=== PATIENT | male | born 1945 | race Caucasian/White ===

== ENCOUNTER 2016-07-19 14:00 | Emergency (ER) | payer MEDICARE, OTHER ==
--- NOTE | 2016-07-19 14:52 | ERPHSYRPT ---
- History of Present Illness Time Seen by Provider: 07/19/16 14:33 Source: patient, family Exam Limitations: no limitations Patient Subjective Stated Complaint: pt here for abd drain to right walt eof abd for 2 weeks , he thinks it is coming out. it has bandage to site from home health care, he states he also has pain to right side of abd, he was told yesterday he has mrsa to fluid, and started on antibotics Triage Nursing Assessment: pt is alert, resp easy, skin w/d , abd large, with abd drain in place to right side of abd, and has leg bag applied with yellow fluid in bag, cath is sutures intact at site, with some redness and warmth Physician History: This is a 71-year-old white male who initially presented with complaints that he thinks that a drain tube which was placed in his abdomen several days ago was coming out Patient does have a history of the kidney removal apparently had had paracentesis and had an abdominal drain placed. He states that he felt like the drain was coming out. He was started on antibiotics 2 days ago secondary to infected peritoneal fluid. He has not had any fevers no nausea no vomiting he did complain of some mild abdominal tenderness. He has mild erythema surrounding the ostomy where the drain is however the area is not hot to palpation and it appears to be more irritation which appears to be chronic. patient was started on antibiotics because of a positive culture of his peritoneal fluid 2 days ago. As I walked into the room the patient's tells me that she just had gotten off the phone with his doctors surgeons sales secretary who stated that he could be at [facility] in the morning to have his drain to removed. During the course of the interview with the patient and his she did state that he had some pain this afternoon between 120 and 1:30 during which she complained of some pain in the left upper anterior chest described as a muscle soreness he was not short of breath he was had no nausea no vomiting. He states it went away with one nitroglycerin. Patient apparently is on elequis for anticoagulation Past medical history includes right kidney removed secondary to renal cancer on May 09 , Peripheral neuropathy, diabetes, arthritis, hernia, pacemaker, atherosclerotic coronary artery disease, arrhythmia Past surgical history includes right kidney removed, drain placed the patient's right abdomen, cardiac stent, cardiac pacemaker, orthopedic surgery. Timing/Duration: other (feels like drain is coming out for 2 days) Modifying Factors: Improves With: nothing Associated Symptoms: abdominal pain (mild tenderness at abdominal drain site), chest pain, No nausea, No vomiting, No shortness of breath, No heartburn, No diaphoresis, No cough, No chills, No fever, No headaches, No loss of appetite, No malaise, No rash, No syncope, No seizure, No weakness Allergies/Adverse Reactions: rivaroxaban [From Xarelto] Allergy (Severe, Verified 07/19/16 14:19) simvastatin [From Zocor] Allergy (Intermediate, Verified 07/19/16 14:19) penicillin G Allergy (Mild, Verified 07/19/16 14:19) Rash Sulfa (Sulfonamide Antibiotics) [Sulfa(Sulfonamide Antibiotics)] Allergy (Mild, Verified 07/19/16 14:19) Rash Home Medications: Apixaban [Eliquis] 5 mg PO BID 04/23/16 [History] Benazepril HCl [Lotensin] 20 mg PO DAILY 04/23/16 [History] Carvedilol 12.5 mg [Coreg 12.5 mg] 12.5 mg PO DAILY 04/23/16 [History] Glipizide 5 mg [Glucotrol 5 MG] 5 mg PO BID 04/23/16 [History] Insulin Glargine [Lantus Insulin] 0 unit SQ UD 04/23/16 [History] Lorazepam 1 mg [Ativan 1 MG] 1 mg PO UD 04/23/16 [History] Nitroglycerin 0.4 mg Tablet [Nitrostat 0.4 MG Tablet] 0.4 mg SL UD [History] Nitroglycerin [Nitro-Dur] 1 each TD UD 04/23/16 [History] Omeprazole 20 MG [Prilosec 20 mg] 20 mg PO DAILY 04/23/16 [History] Pravastatin Sodium 40 mg PO DAILY 04/23/16 [History] Spironolactone 25 mg [Aldactone 25 MG] 25 mg PO DAILY 04/23/16 [History] Tramadol HCl 50 mg [Ultram 50 mg] 50 mg PO UD 04/23/16 [History] Hx Tetanus, Diphtheria Vaccination/Date Given: No Hx Influenza Vaccination/Date Given: Yes Hx Pneumococcal Vaccination/Date Given: Yes Immunizations Up to Date: Yes - Review of Systems Constitutional: No Fever, No Chills Eyes: No Symptoms Ears, Nose, & Throat: No Symptoms, No Ear Pain, No Ear Discharge, No Hearing Changes, No Tinnitus, No Nose Pain, No Nose Congestion, No Nose Discharge, No Sinus Drainage, No Epistaxis, No Mouth Pain, No Mouth Swelling, No Loose Teeth, No Throat Pain, No Throat Swelling, No Hoarse, No Painful Swallowing, No Snoring , No Stridor Respiratory: No Cough, No Dyspnea Cardiac: Chest Pain (chest pain described as a muscle soreness lasting 2 minutes at 1:20 PM today resolved with nitroglycerin) Abdominal/Gastrointestinal: Other (patient feels like drain tube is coming out x 2 days, mild tenderness at site denies other abdominal pain), No Nausea, No Vomiting, No Diarrhea, No Constipation, No Hematemesis, No Hematochezia, No Melena, No Dysphagia, No Appetite Changes Genitourinary Symptoms: No Dysuria Musculoskeletal: No Back Pain, No Neck Pain Skin: No Rash Neurological: No Dizziness, No Focal Weakness, No Sensory Changes Psychological: No Symptoms Endocrine: No Symptoms All Other Systems: Reviewed and Negative - Past Medical History Pertinent Past Medical History: Yes Neurological History: Peripheral Neuropathy Cardiac History: Arrhythmia, Other Respiratory History: No Pertinent History Endocrine Medical History: Diabetes Type II Musculoskeletal History: Arthritis GI Medical History: Hernia Other Medical History: Pacemaker, 3 stints, kidney ca - Past Surgical History Past Surgical History: Yes Cardiac: Cardiac Stent, Pacemaker Musculoskeletal: Orthopedic Surgery Other Surgical History: right kidney removal - Social History Smoking Status: Never smoker Exposure to second hand smoke: No Drug Use: none Patient Lives Alone: No - Nursing Vital Signs Nursing Vital Signs: Initial Vital Signs Temperature 97.7 F Temperature Source Oral Pulse Rate 60 Respiratory Rate 12 Blood Pressure [] 132/68 Pain Intensity 2 - Physical Exam General Appearance: no apparent distress, alert Eye Exam: PERRL/EOMI, eyes nml inspection Ears, Nose, Throat Exam: normal ENT inspection, TMs normal, pharynx normal, moist mucous membranes Neck Exam: normal inspection, non-tender, supple, full range of motion Respiratory Exam: normal breath sounds, lungs clear, No respiratory distress Cardiovascular Exam: regular rate/rhythm, normal heart sounds, normal peripheral pulses Gastrointestinal/Abdomen Exam: soft, normal bowel sounds, other (abdomen is soft , nontender, there is a drain in the right lower quadrant approximately 1/2 inch of which is visible there is slight erythema of the ostomy site area is not hot), No tenderness Back Exam: normal inspection, normal range of motion, No CVA tenderness, No vertebral tenderness Extremity Exam: normal inspection, normal range of motion, pelvis stable Neurologic Exam: alert, oriented x 3, cooperative, normal mood/affect, nml cerebellar function, nml station & gait, sensation nml, No motor deficits Skin Exam: other (slight erythema of the ostomy site lower quadrant appears to be irrititation, area is not hot) SpO2 Interpretation: normal (98%) SpO2: 98 Oxygen Delivery: Room Air - Course Nursing assessment & vital signs reviewed: Yes EKG Interpreted by Me: RATE (60 bpm), Other (EKG, paced rhythm 60 bpm) - Radiology Exams Chest X-ray Interpretation: Discussed w/ radiologist (chest x-ray: Impression: Nonacute underinflated chest with chronic features) Ordered Tests: Active Orders 24 hr Category Date Time Status Planning Official STAT Care 07/19/16 14:44 Active EKG-ER Only STAT Care 07/19/16 14:44 Active IV Insertion STAT Care 07/19/16 14:44 Active CHEST 1 VIEW (PORTABLE) Stat Exams 07/19/16 14:44 Completed BLOOD CULTURE Stat Lab 07/19/16 15:25 Ordered CBC W DIFF Stat Lab 07/19/16 15:10 Completed CMP Stat Lab 07/19/16 15:10 Completed D-DIMER QUANTITATION Stat Lab 07/19/16 15:10 Completed PROTIME WITH INR Stat Lab 07/19/16 15:10 Completed PTT Stat Lab 07/19/16 15:10 Completed TROPONIN Q3H Lab 07/19/16 14:45 Completed TROPONIN Q3H Lab 07/19/16 17:20 Completed TROPONIN Q3H Lab 07/19/16 20:45 Ordered TROPONIN Q3H Lab 07/19/16 23:45 Ordered TROPONIN Q3H Lab 07/20/16 02:45 Ordered Lab/Rad Data: Laboratory Result Diagrams 07/19/16 15:10 03/02/17 15:10 Laboratory Results 07/19/16 07/19/16 07/19/16 Range/Units 17:20 15:10 15:10 WBC (4.0-10.5) K/mm3 RBC (4.1-5.6) M/mm3 Hgb (12.5-18.0) gm/dl Hct (42-50) % MCV (78-100) fl MCH (26-32) pg MCHC (32-36) g/dl RDW (11.5-14.0) % Plt Count (150-450) K/mm3 MPV (6-9.5) fl Gran % (36.0-66.0) % Lymphocytes % (24.0-44.0) % Monocytes % (0.0-12.0) % Eosinophils % (0.00-5.0) % Basophils % (0.0-0.4) % Basophils # (0-0.4) INR 1.39 (0.8-3.0) PTT 32.3 (24.1-36.1) SECONDS D-Dimer 4.294 H* (0.00-0.49) mg/L Potassium 5.1 (3.5-5.1) mEq/L Chloride 100 (98-107) mEq/L BUN 15 (9-20) mg/dL Creatinine 1.88 H (0.55-1.30) mg/dl Estimated GFR 38 ML/MIN Glucose 157 H (70-110) MG/DL Calcium 8.3 L (8.5-10.1) mg/dL Total Bilirubin 0.3 (0.2-1.0) mg/dL AST 14 L (15-37) U/L ALT 11 L (12-78) U/L Alkaline Phosphatase 127 H (46-116) U/L Troponin I 0.025 (0.000-0.056) ng/ml Serum Total Protein 5.9 L (6.4-8.2) gm/dL Albumin 2.3 L (3.4-5.0) g/dL 07/19/16 07/19/16 Range/Units 15:10 14:45 WBC 5.7 (4.0-10.5) K/mm3 RBC 3.79 L (4.1-5.6) M/mm3 Hgb 9.6 L (12.5-18.0) gm/dl Hct 31.1 L (42-50) % MCV 82.1 (78-100) fl MCH 25.3 L (26-32) pg MCHC 30.9 L (32-36) g/dl RDW 14.3 H (11.5-14.0) % Plt Count 215 (150-450) K/mm3 MPV 10.6 H (6-9.5) fl Gran % 58.7 (36.0-66.0) % Lymphocytes % 22.8 L (24.0-44.0) % Monocytes % 13.1 H (0.0-12.0) % Eosinophils % 4.9 (0.00-5.0) % Basophils % 0.5 (0.0-0.4) % Basophils # 0.03 (0-0.4) INR (0.8-3.0) PTT (24.1-36.1) SECONDS D-Dimer (0.00-0.49) mg/L Potassium (3.5-5.1) mEq/L Chloride (98-107) mEq/L BUN (9-20) mg/dL Creatinine (0.55-1.30) mg/dl Estimated GFR ML/MIN Glucose (70-110) MG/DL Calcium (8.5-10.1) mg/dL Total Bilirubin (0.2-1.0) mg/dL AST (15-37) U/L ALT (12-78) U/L Alkaline Phosphatase (46-116) U/L Troponin I 0.020 (0.000-0.056) ng/ml Serum Total Protein (6.4-8.2) gm/dL Albumin (3.4-5.0) g/dL - Progress Progress: improved Progress Note: 07/19/16 14:57 This is a 71-year-old white male who had a right nephrectomy in May 09, 2016 secondary to renal cancer. He had subsequent abdominal paracentesis and drain placement his states the drain was placed 2 days ago patient states he feels like the drain is coming out and came in concerning this. He has not been vomiting he he really does not appear to have abdominal tenderness there is no tenderness with palpation of his abdomen he does have slight irritation in the right lower quadrant where the ostomy site is. Patient's states the patient was started on antibiotics secondary to a positive culture of the patient's abdominal drainage 2 days ago. He has no fevers no vomiting. When I entered the room the had just gotten off of the phone with the patient's surgeons sales secretary and she told me that there was arrangements made for the patient to have the drain pulled tomorrow at outpatient surgery at . Unfortunately, the patient apparently had pain this afternoon at 1:00 lasting 2 minutes in his left upper chest described as a muscle soreness it resolved after taking nitroglycerin. Patient is on Eloquis. Patient states she does not have any pain now, he has no nausea no vomiting no diaphoresis he is not short of breath. Will go ahead and obtain routine labs for chest pain workup including EKG chest x-ray CBC CMP troponin. Will add blood cultures in view of the patient's history. . 07/19/16 17:12 Patient is in no acute distress at this time no further chest pain patient's troponin within normal limits Patient's d-dimer is elevated at 4.294 Patient's chest x-ray nonacute underinflated chest with chronic features. Patient is on eloquis. I have discussed the case with Dr. Ramana Wilkins.he feels that the patient can be released and to continue his eloquis. Will repeat troponin on this patient if within normal limits Will plan to discharge and have him follow-up with [facility] interventional radiology department tomorrow morning. 07/19/16 18:10 Patient's repeat troponin is within normal limits. Will discharge - Departure Time of Disposition: 18:11 Departure Disposition: Home Clinical Impression: problems with abdominal drain Chest pain Qualifiers: Chest pain type: unspecified Qualified Code(s): R07.9 - Chest pain, unspecified Condition: Fair Critical Care Time: No Additional Instructions: Return home. Continue current medications and treatment. Follow-up with [facility] interventional radiology tomorrow morning as arranged. Return for acute distress or for severe symptoms. Follow-up with your family doctor.
--- NOTE | 2016-07-19 15:07 | XRAY ---
Indication: Chest pain. Comparison: March 20, 2016. Portable chest again demonstrates mediastinal/hilar calcified nodes and left-sided single lead pacemaker. No focal infiltrate, consolidation, or large effusion. Heart is not enlarged for AP portable technique. Bony thorax intact again with osteopenia, degenerative changes, and previous right shoulder surgery. Impression: Nonacute underinflated chest with chronic features.
[2016-07-19 15:32] LABS: BASOPHIL % 0.5 % (0.0-0.4); Eosinophil % 4.9 % (0.00-5.0); Granulocytes % 58.7 % (36.0-66.0); Lymphocytes % 22.8 % (24.0-44.0); Mean Cell Volume 82.1 fl (78-100); Mean Corpuscular Hemoglobin 25.3 pg (26-32); Mean Platelet Volume 10.6 fl (6-9.5); Monocytes % 13.1 % (0.0-12.0); Platelet Count 215 K/mm3 (150-450); Red Blood Count 3.79 M/mm3 (4.1-5.6); Red Cell Distribution Width 14.3 % (11.5-14.0); White Blood Count 5.7 K/mm3 (4.0-10.5)
[2016-07-19 15:50] LABS: INR 1.39 (0.8-3.0); PROTIME 15.4 SECONDS (8.83-12.87)
[2016-07-19 15:52] LABS: PTT 32.3 SECONDS (24.1-36.1)
[2016-07-19 16:36] LABS: ALBUMIN 2.3 g/dL (3.4-5.0); ALKALINE PHOSPHATASE 127 U/L (46-116); BILIRUBIN,TOTAL 0.3 mg/dL (0.2-1.0); BLOOD UREA NITROGEN 15 mg/dL (9-20); Glucose 157 MG/DL (70-110); SGOT/AST 14 U/L (15-37); Total Protein 5.9 gm/dL (6.4-8.2)
[2016-07-19 16:48] LABS: SGPT/ALT 11 U/L (12-78)
[2016-07-19 17:29] LABS: CHLORIDE 100 mEq/L (98-107); Potassium 5.1 mEq/L (3.5-5.1)
[2016-07-19 18:17] VITALS: BP 139/69; PULSE 60; O2SAT 100
[2016-07-19 19:54] LABS: SODIUM 136 mEq/L (136-145)
== END 2016-07-19 18:16 | disposition home or self-care (01) ==
LOC: ED 14:00
DX: R07.89 Other chest pain (principal); Z43.1 Encounter for attention to gastrostomy; Z79.84 Long term (current) use of oral hypoglycemic drugs; Z79.4 Long term (current) use of insulin; Z79.899 Other long term (current) drug therapy; Z79.01 Long term (current) use of anticoagulants; E11.9 Type 2 diabetes mellitus without complications; Z95.0 Presence of cardiac pacemaker; Z98.61 Coronary angioplasty status
CPT/HCPCS: 36000; 36415; 71010; 80053; 84484; 85025; 85379; 85610; 85730; 87040; 93005; 93041; 99284

== ENCOUNTER 2016-10-07 19:31 | Emergency (ER) | payer MEDICARE, OTHER ==
[2016-10-07 19:39] VITALS: PULSE 60
--- NOTE | 2016-10-07 19:56 | ERPHSYRPT ---
- History of Present Illness Time Seen by Provider: 10/07/16 19:52 Source: patient Exam Limitations: no limitations Patient Subjective Stated Complaint: pt states he has been sick for 2 days. states he has been coughing up clear phlegm and has had a fever. Triage Nursing Assessment: pt awake and alert, asnwers qeustions approp. skin pink, hot, and dry. pt ambulatory with steady gait noted. respirations nonlabored with insp oand exp wheezing on rt and exp wheeze in lt base. Physician History: 71-year-old white male with history of removal of the right kidney, kidney cancer previous the abdominal drain which has been subsequently removed, atherosclerotic coronary artery disease, cardiac stents, cardiac pacemaker, peripheral neuropathy, diabetes, arthritis, arrhythmia Patient arrives with a fever since yesterday cough nonproductive no vomiting no diarrhea. Patient apparently had had a CT of his abdomen on 3 days ago apparently is having fluid drained from his abdomen 3 days ago which he states was clear Past medical history includes peripheral neuropathy, diabetes, arthritis, hernia , cardiac pacemaker, atherosclerotic coronary artery disease, arrhythmia, kidney cancer Past surgical history includes right kidney removed, drain right side of abdomen , cardiac catheter, cardiac stent, cardiac pacemaker, atherosclerotic coronary artery disease Timing/Duration: yesterday Severity: moderate Modifying Factors: Improves With: nothing Associated Symptoms: cough, fever, No nausea, No vomiting, No abdominal pain, No shortness of breath, No heartburn, No diaphoresis, No chest pain, No headaches, No loss of appetite, No malaise, No rash, No syncope, No seizure, No weakness Allergies/Adverse Reactions: rivaroxaban [From Xarelto] Allergy (Severe, Verified 10/07/16 19:49) simvastatin [From Zocor] Allergy (Intermediate, Verified 10/07/16 19:49) penicillin G Allergy (Mild, Verified 10/07/16 19:49) Rash Sulfa (Sulfonamide Antibiotics) [Sulfa(Sulfonamide Antibiotics)] Allergy (Mild, Verified 10/07/16 19:49) Rash Home Medications: Apixaban [Eliquis] 5 mg PO BID 04/23/16 [History] Benazepril HCl [Lotensin] 20 mg PO DAILY 04/23/16 [History] Carvedilol 12.5 mg [Coreg 12.5 mg] 12.5 mg PO DAILY 04/23/16 [History] Glipizide 5 mg [Glucotrol 5 MG] 5 mg PO BID 04/23/16 [History] Insulin Glargine [Lantus Insulin] 0 unit SQ UD 04/23/16 [History] Lorazepam 1 mg [Ativan 1 MG] 1 mg PO UD 04/23/16 [History] Nitroglycerin 0.4 mg Tablet [Nitrostat 0.4 MG Tablet] 0.4 mg SL UD [History] Nitroglycerin [Nitro-Dur] 1 each TD UD 04/23/16 [History] Omeprazole 20 MG [Prilosec 20 mg] 20 mg PO DAILY 04/23/16 [History] Pravastatin Sodium 40 mg PO DAILY 04/23/16 [History] Spironolactone 25 mg [Aldactone 25 MG] 25 mg PO DAILY 04/23/16 [History] Tramadol HCl 50 mg [Ultram 50 mg] 50 mg PO UD 04/23/16 [History] Hx Tetanus, Diphtheria Vaccination/Date Given: No Hx Influenza Vaccination/Date Given: Yes Hx Pneumococcal Vaccination/Date Given: Yes Immunizations Up to Date: Yes - Review of Systems Constitutional: Fever, No Chills Eyes: No Symptoms Ears, Nose, & Throat: No Symptoms Respiratory: Cough, No Dyspnea Cardiac: No Chest Pain, No Edema, No Syncope Abdominal/Gastrointestinal: No Abdominal Pain, No Nausea, No Vomiting, No Diarrhea Genitourinary Symptoms: No Dysuria Musculoskeletal: No Back Pain, No Neck Pain Skin: No Rash Neurological: No Dizziness, No Focal Weakness, No Sensory Changes Psychological: No Symptoms Endocrine: No Symptoms All Other Systems: Reviewed and Negative - Past Medical History Pertinent Past Medical History: Yes Neurological History: Peripheral Neuropathy Cardiac History: Arrhythmia, Deep Vein Thrombosis, Other Respiratory History: No Pertinent History, Sleep Apnea Endocrine Medical History: Diabetes Type II Musculoskeletal History: Arthritis GI Medical History: Hernia Other Medical History: Pacemaker, 3 stents, kidney ca - Past Surgical History Past Surgical History: Yes Cardiac: Cardiac Stent, Pacemaker Musculoskeletal: Orthopedic Surgery Other Surgical History: right kidney removal, mult paracentisis- last on october 04 - took 3l of clear fluid- results not back - Social History Smoking Status: Never smoker Exposure to second hand smoke: No Drug Use: none Patient Lives Alone: No - Nursing Vital Signs Nursing Vital Signs: Initial Vital Signs Temperature 99.2 F Temperature Source Oral Pulse Rate 60 Respiratory Rate 20 Blood Pressure [] 118/47 Pain Intensity 5 - Physical Exam General Appearance: no apparent distress, alert Eye Exam: PERRL/EOMI, eyes nml inspection Ears, Nose, Throat Exam: normal ENT inspection, TMs normal, pharynx normal, moist mucous membranes Neck Exam: normal inspection, non-tender, supple, full range of motion Respiratory Exam: normal breath sounds, lungs clear, No respiratory distress Cardiovascular Exam: regular rate/rhythm, normal heart sounds, normal peripheral pulses Gastrointestinal/Abdomen Exam: soft, normal bowel sounds, No tenderness, No mass Back Exam: normal inspection, normal range of motion, No CVA tenderness, No vertebral tenderness Extremity Exam: normal inspection, normal range of motion, pelvis stable Neurologic Exam: alert, oriented x 3, cooperative, normal mood/affect, nml cerebellar function, nml station & gait, sensation nml, No motor deficits Skin Exam: normal color, warm, dry, No rash Lymphatic Exam: No adenopathy SpO2 Interpretation: normal (97%) SpO2: 97 Oxygen Delivery: Room Air - Course Nursing assessment & vital signs reviewed: Yes - Radiology Exams Chest X-ray Interpretation: Interpreted by me, Negative, No Pneumonia, No Pneumothorax Ordered Tests: Active Orders 24 hr Category Date Time Status IV Insertion STAT Care 10/07/16 19:50 Active CHEST 1 VIEW (PORTABLE) Stat Exams 10/07/16 19:51 Taken BLOOD CULTURE Stat Lab 10/07/16 20:41 Received CBC W DIFF Stat Lab 10/07/16 20:11 Completed CMP Stat Lab 10/07/16 20:11 Completed CULTURE, THROAT Stat Lab 10/07/16 20:11 Received CULTURE,URINE Stat Lab 10/07/16 20:41 Received STREP SCREEN-BETA A Stat Lab 10/07/16 20:11 Completed UA W/ MICROSCOPIC Stat Lab 10/07/16 20:41 Completed Medication Summary Discontinued Medications Generic Name Dose Route Start Last Admin Trade Name Freq PRN Reason Stop Dose Admin Acetaminophen 975 mg 10/07/16 20:51 10/07/16 20:53 Tylenol 325 Mg PO 10/07/16 20:52 975 mg STAT ONE Administration Acetaminophen Confirm 10/07/16 20:52 Tylenol 325 Mg Administered 10/07/16 20:53 Dose 975 mg .ROUTE .STK-MED ONE Sodium Chloride 1,000 mls @ 100 mls/hr 10/07/16 20:00 10/07/16 20:15 Sodium Chloride 0.9% 1000 Ml IV 11/06/16 19:59 100 mls/hr .Q10H CHRIST Administration Levofloxacin/Dextrose 500 mg in 100 mls @ 100 mls/hr 10/07/16 22:13 10/07/16 22:19 Levofloxacin 500mg/100ml D5w IV 10/07/16 23:12 100 mls/hr STAT STA Administration Levofloxacin/Dextrose Confirm 10/07/16 22:17 Levofloxacin 500mg/100ml D5w Administered 10/07/16 22:18 Dose 500 mg in 100 mls @ ud IV .STK-MED ONE Sodium Chloride Confirm 10/07/16 20:14 Sodium Chloride 0.9% 1000 Ml Administered 10/07/16 20:15 Dose 1,000 mls @ ud .ROUTE .STK-MED ONE Lab/Rad Data: Laboratory Result Diagrams 10/07/16 20:11 10/07/16 20:11 Laboratory Results 10/07/16 10/07/16 10/07/16 Range/Units 20:41 20:11 20:11 WBC (4.0-10.5) K/mm3 RBC (4.1-5.6) M/mm3 Hgb (12.5-18.0) gm/dl Hct (42-50) % MCV (78-100) fl MCH (26-32) pg MCHC (32-36) g/dl RDW (11.5-14.0) % Plt Count (150-450) K/mm3 MPV (6-9.5) fl Gran % (36.0-66.0) % Lymphocytes % (24.0-44.0) % Monocytes % (0.0-12.0) % Eosinophils % (0.00-5.0) % Basophils % (0.0-0.4) % Basophils # (0-0.4) Sodium (136-145) mEq/L Potassium (3.5-5.1) mEq/L Chloride (98-107) mEq/L Carbon Dioxide (21-32) mEq/L Anion Gap (5-15) MEQ/L BUN (9-20) mg/dL Creatinine (0.55-1.30) mg/dl Estimated GFR ML/MIN Glucose (70-110) MG/DL Calcium (8.5-10.1) mg/dL Total Bilirubin (0.2-1.0) mg/dL AST (15-37) U/L ALT (12-78) U/L Alkaline Phosphatase (46-116) U/L Serum Total Protein (6.4-8.2) gm/dL Albumin (3.4-5.0) g/dL Ur Collection Type VOID Urine Color YELLOW (YELLOW) Urine Appearance CLEAR (CLEAR) Urine pH 5.5 (5-6) Ur Specific [place] 1.020 (1.005-1.025) Urine Protein 30 (Negative) Urine Glucose (UA) NEGATIVE (NEGATIVE) mg/dL Urine Ketones NEGATIVE (NEGATIVE) Urine Nitrite NEGATIVE (NEGATIVE) Urine Bilirubin NEGATIVE (NEGATIVE) Urine Urobilinogen 1 (0-1) mg/dL Urine WBC (Auto) NEGATIVE (NEGATIVE) Urine RBC (Auto) NEGATIVE (0-5) Antonio/ul Urine Microscopic RBC 2-5 (0-2) /HPF Urine Microscopic WBC 0-2 (0-5) /HPF Ur Epithelial Cells FEW (FEW) /HPF Urine Bacteria RARE (NEGATIVE) /HPF Influenza Type A Ag NEGATIVE (NEGATIVE) Influenza Type B Ag NEGATIVE (NEGATIVE) RSV (PCR) POSITIVE (Negative) Streptococcus Screen NEGATIVE (Negative) Specimen Received 10/07/16204410/07/16 10/07/16 Range/Units 20:11 20:11 WBC 6.7 (4.0-10.5) K/mm3 RBC 4.03 L (4.1-5.6) M/mm3 Hgb 10.4 L (12.5-18.0) gm/dl Hct 33.7 L (42-50) % MCV 83.6 (78-100) fl MCH 25.8 L (26-32) pg MCHC 30.9 L (32-36) g/dl RDW 21.3 H (11.5-14.0) % Plt Count 165 (150-450) K/mm3 MPV 10.3 H (6-9.5) fl Gran % 77.2 H (36.0-66.0) % Lymphocytes % 9.5 L (24.0-44.0) % Monocytes % 10.9 (0.0-12.0) % Eosinophils % 2.1 (0.00-5.0) % Basophils % 0.3 (0.0-0.4) % Basophils # 0.02 (0-0.4) Sodium 133 L (136-145) mEq/L Potassium 4.4 (3.5-5.1) mEq/L Chloride 104 (98-107) mEq/L Carbon Dioxide 23.2 (21-32) mEq/L Anion Gap 9.9 (5-15) MEQ/L BUN 20 (9-20) mg/dL Creatinine 1.84 H (0.55-1.30) mg/dl Estimated GFR 39 ML/MIN Glucose 144 H (70-110) MG/DL Calcium 8.8 (8.5-10.1) mg/dL Total Bilirubin 0.8 (0.2-1.0) mg/dL AST 13 L (15-37) U/L ALT 13 (12-78) U/L Alkaline Phosphatase 157 H (46-116) U/L Serum Total Protein 6.6 (6.4-8.2) gm/dL Albumin 3.1 L (3.4-5.0) g/dL Ur Collection Type Urine Color (YELLOW) Urine Appearance (CLEAR) Urine pH (5-6) Ur Specific [place] (1.005-1.025) Urine Protein (Negative) Urine Glucose (UA) (NEGATIVE) mg/dL Urine Ketones (NEGATIVE) Urine Nitrite (NEGATIVE) Urine Bilirubin (NEGATIVE) Urine Urobilinogen (0-1) mg/dL Urine WBC (Auto) (NEGATIVE) Urine RBC (Auto) (0-5) Antonio/ul Urine Microscopic RBC (0-2) /HPF Urine Microscopic WBC (0-5) /HPF Ur Epithelial Cells (FEW) /HPF Urine Bacteria (NEGATIVE) /HPF Influenza Type A Ag (NEGATIVE) Influenza Type B Ag (NEGATIVE) RSV (PCR) (Negative) Streptococcus Screen (Negative) Specimen Received - Progress Progress: improved Progress Note: 10/07/16 22:10 Patient's labs are essentially normal. Chest x-ray no acute disease processes noted. Patient temperature now 101.5 after Tylenol. I have discussed the case with Dr. Ramana Wilkins the patient's family physician. Will go ahead and give patient Levaquin 500 mg IV send him home with oral Levaquin 500 mg daily. Patient to follow-up with Dr. Wilkins tomorrow. I have discussed this with patient and his he is agreeable to this - Departure Time of Disposition: 22:11 Departure Disposition: Home Clinical Impression: Bronchitis Fever Qualifiers: Fever type: unspecified Qualified Code(s): R50.9 - Fever, unspecified Condition: Fair Critical Care Time: No Referrals: ROLANDO PLASCENCIA [Primary Care Provider] - Instructions: Bronchitis Additional Instructions: Return home. Levaquin 500 mg orally daily #10. Tylenol every 4 hours as needed for temperature greater than 100.5. Plenty of fluids. Follow-up with Dr. Wilkins tomorrow (call office in the morning) Return for acute distress or for severe symptoms Prescriptions: Levofloxacin [Levaquin] 500 mg PO DAILY #10 tablet
[2016-10-07] MEDS ORDERED: Sodium Chloride 0.9% 1000 ML 1,000 ML IV SCH (20:00)
[2016-10-07] MEDS ORDERED: Sodium Chloride 0.9% 1000 ML 1,000 ML ONE (20:14)
[2016-10-07 20:18] LABS: BASOPHIL % 0.3 % (0.0-0.4); Eosinophil % 2.1 % (0.00-5.0); Granulocytes % 77.2 % (36.0-66.0); Lymphocytes % 9.5 % (24.0-44.0); Mean Cell Volume 83.6 fl (78-100); Mean Corpuscular Hemoglobin 25.8 pg (26-32); Mean Platelet Volume 10.3 fl (6-9.5); Monocytes % 10.9 % (0.0-12.0); Platelet Count 165 K/mm3 (150-450); Red Blood Count 4.03 M/mm3 (4.1-5.6); Red Cell Distribution Width 21.3 % (11.5-14.0); White Blood Count 6.7 K/mm3 (4.0-10.5)
[2016-10-07 20:40] LABS: ALBUMIN 3.1 g/dL (3.4-5.0); ANION GAP 9.9 MEQ/L (5-15); BILIRUBIN,TOTAL 0.8 mg/dL (0.2-1.0); Carbon Dioxide 23.2 mEq/L (21-32); Potassium 4.4 mEq/L (3.5-5.1); Total Protein 6.6 gm/dL (6.4-8.2)
[2016-10-07] MEDS ORDERED: TYLENOL 325 MG PO ONE (20:51)
[2016-10-07] MEDS ORDERED: TYLENOL 325 MG ONE (20:52)
[2016-10-07 21:09] LABS: Bacteria RARE /HPF (NEGATIVE); COMPLETE URINE MICROSCOPIC? YES; Collection Type VOID; Epithelial Cells FEW /HPF (FEW); Ph 5.5 (5-6); WBC 0-2 /HPF (0-5)
[2016-10-07] MEDS ORDERED: Levofloxacin 500MG/100ML D5W 500 MG/100 ML BAG IV STA (22:13)
[2016-10-07] MEDS ORDERED: Levofloxacin 500MG/100ML D5W 500 MG/100 ML BAG IV ONE (22:17)
[2016-10-07 23:34] VITALS: BP 118/47; O2SAT 97
--- NOTE | 2016-10-08 08:39 | XRAY ---
Indication: Fever and cough. Comparison: July 19, 2016. Portable chest demonstrates minimal bibasilar atelectasis/scarring. No focal infiltrate, consolidation, or large effusion. The heart is borderline enlarged again demonstrating left-sided single lead pacemaker. Stable hilar calcified nodes. Impression: Borderline cardiomegaly. Negative for acute pneumonic process or CHF.
== END 2016-10-07 23:35 | disposition home or self-care (01) ==
LOC: ED 19:31
DX: R50.9 Fever, unspecified (principal); J40 Bronchitis, not specified as acute or chronic
CPT/HCPCS: 36000; 36415; 71010; 80053; 81000; 85025; 87040; 87070; 87077; 87086; 87186; 87430; 87631; 96360; 96361; 96365; 99284; J1956; A9270-GY

== ENCOUNTER 2017-06-16 21:55 | Inpatient (IN) | payer MEDICARE, OTHER ==
[2017-06-16 22:38] LABS: Hematocrit 44.1 % (42-50); Hemoglobin 14.1 gm/dl (12.5-18.0); Mean Cell Volume 88.2 fl (78-100); Mean Corpuscular Hemoglobin 28.2 pg (26-32); Mean Platelet Volume 11.6 fl (6-9.5); Platelet Count 136 K/mm3 (150-450); Red Cell Distribution Width 14.5 % (11.5-14.0)
--- NOTE | 2017-06-16 22:42 | ERPHSYRPT ---
- History of Present Illness Time Seen by Provider: 06/16/17 22:30 Source: patient Exam Limitations: no limitations Patient Subjective Stated Complaint: Fever and cough Triage Nursing Assessment: Pt presents to the ED with complaints of cough and fever x2 days, worsening today. Pt states there is nothing that makes symptoms better or worse. Pt denies other complaints. Pt is A&O x4, no distress noted. Physician History: 71 y/o male comes to the ER with complaints of fever and cough for the past 2 days. Pt had a fever of 102 and took tylenol prior to coming to the ER. Pt feels weak, has diffuse muscle aches and runny nose. Pt denies any sick contacts , sore throat, shortness of breath or dizziness. Pt does admit to having substernal chest pain that started this evening, describing the pain as sharp, intermittent, 3/10 and pt has not taken any pain meds. Timing/Duration: yesterday Cough Quality/Degree: mild Possible Cause: no prior episodes Modifying Factors: Improves With: nothing Associated Symptoms: fever, chills, cough, muscle aches, nasal drainage International travel in last 2 weeks: No Allergies/Adverse Reactions: rivaroxaban [From Xarelto] Allergy (Severe, Verified 10/07/16 19:49) simvastatin [From Zocor] Allergy (Intermediate, Verified 10/07/16 19:49) penicillin G Allergy (Mild, Verified 10/07/16 19:49) Rash Sulfa (Sulfonamide Antibiotics) [Sulfa(Sulfonamide Antibiotics)] Allergy (Mild, Verified 10/07/16 19:49) Rash Home Medications: Apixaban [Eliquis] 5 mg PO BID 04/23/16 [History] Benazepril HCl [Lotensin] 20 mg PO DAILY 04/23/16 [History] Carvedilol 12.5 mg [Coreg 12.5 mg] 12.5 mg PO DAILY 04/23/16 [History] Glipizide 5 mg [Glucotrol 5 MG] 5 mg PO BID 04/23/16 [History] Insulin Glargine [Lantus Insulin] 0 unit SQ UD 04/23/16 [History] Lorazepam 1 mg [Ativan 1 MG] 1 mg PO UD 04/23/16 [History] Nitroglycerin 0.4 mg Tablet [Nitrostat 0.4 MG Tablet] 0.4 mg SL UD [History] Nitroglycerin [Nitro-Dur] 1 each TD UD 04/23/16 [History] Omeprazole 20 MG [Prilosec 20 mg] 20 mg PO DAILY 04/23/16 [History] Pravastatin Sodium 40 mg PO DAILY 04/23/16 [History] Spironolactone 25 mg [Aldactone 25 MG] 25 mg PO DAILY 04/23/16 [History] Tramadol HCl 50 mg [Ultram 50 mg] 50 mg PO UD 04/23/16 [History] Hx Tetanus, Diphtheria Vaccination/Date Given: Yes Hx Influenza Vaccination/Date Given: Yes Hx Pneumococcal Vaccination/Date Given: Yes Immunizations Up to Date: Yes - Review of Systems Constitutional: Fever, Chills, Weakness Eyes: No Symptoms Ears, Nose, & Throat: No Symptoms, Nose Discharge Respiratory: No Cough, No Dyspnea Cardiac: No Chest Pain, No Edema, No Syncope Abdominal/Gastrointestinal: No Abdominal Pain, No Nausea, No Vomiting, No Diarrhea Genitourinary Symptoms: No Dysuria Musculoskeletal: Myalgias, No Back Pain, No Neck Pain Skin: No Rash Neurological: No Dizziness, No Focal Weakness, No Sensory Changes Psychological: No Symptoms Endocrine: No Symptoms All Other Systems: Reviewed and Negative - Past Medical History Pertinent Past Medical History: Yes Neurological History: Peripheral Neuropathy Cardiac History: Arrhythmia, Deep Vein Thrombosis, Other Respiratory History: No Pertinent History, Sleep Apnea Endocrine Medical History: Diabetes Type II Musculoskeletal History: Arthritis GI Medical History: Hernia Other Medical History: Pacemaker, 3 stents, kidney ca - Past Surgical History Past Surgical History: Yes Cardiac: Cardiac Stent, Pacemaker Musculoskeletal: Orthopedic Surgery Other Surgical History: right kidney removal, mult paracentisis- last on october 04 - took 3l of clear fluid- results not back - Social History Smoking Status: Never smoker Exposure to second hand smoke: No Drug Use: none Patient Lives Alone: No - Nursing Vital Signs Nursing Vital Signs: Initial Vital Signs Temperature 99.9 F 06/16/17 22:07 Blood Pressure 140/68 06/16/17 22:07 Pain Scale Pain Intensity 0 - Physical Exam General Appearance: no apparent distress, alert, No mild distress Eye Exam: PERRL/EOMI, eyes nml inspection Ears, Nose, Throat Exam: normal ENT inspection, TMs normal, pharynx normal, moist mucous membranes, pharyngeal erythema Neck Exam: normal inspection, non-tender, supple, full range of motion Respiratory Exam: normal breath sounds, lungs clear, No chest tenderness, No respiratory distress Cardiovascular Exam: regular rate/rhythm, normal heart sounds, normal peripheral pulses Gastrointestinal/Abdomen Exam: soft, normal bowel sounds, No tenderness Back Exam: normal inspection, No CVA tenderness, No vertebral tenderness Extremity Exam: normal inspection, normal range of motion Neurologic Exam: alert, oriented x 3, cooperative, normal mood/affect, sensation nml, No motor deficits Skin Exam: normal color, warm, dry, No rash Lymphatic Exam: No adenopathy - Course Nursing assessment & vital signs reviewed: Yes EKG Interpreted by Me: Other (paced at a HR of 60 bpm) Ordered Tests: Active Orders 24 hr Category Date Time Status EKG-ER Only STAT Care 06/16/17 22:24 Active IV Insertion STAT Care 06/16/17 22:19 Active CHEST 2 VIEWS (PA AND LAT) Stat Exams 06/16/17 23:04 Taken BLOOD CULTURE Stat Lab 06/16/17 22:40 Received BNP [NT PRO BNP] Stat Lab 06/17/17 01:04 Ordered CBC W DIFF Stat Lab 06/16/17 22:33 Completed CMP Stat Lab 06/16/17 22:33 Completed CULTURE,URINE Stat Lab 06/16/17 22:40 Received Lactic Acid Stat Lab 06/16/17 22:41 Completed Manual Differential NC Stat Lab 06/16/17 22:33 Completed TROPONIN Q3H Lab 06/16/17 22:53 Completed UA W/ MICROSCOPIC Stat Lab 06/16/17 22:40 Completed Respiratory Nebulizer STAT RT 06/17/17 01:03 Active Medication Summary Discontinued Medications Generic Name Dose Route Start Last Admin Trade Name Freq PRN Reason Stop Dose Admin Acetaminophen 1,000 mg 06/16/17 23:40 06/16/17 23:41 Tylenol Extra Strength 500 Mg PO 06/16/17 23:41 1,000 mg STAT STA Administration Acetaminophen Confirm 06/16/17 23:39 Tylenol Extra Strength 500 Mg Administered 06/16/17 23:40 Dose 500 mg .ROUTE .STK-MED ONE Acetaminophen/Codeine Phosphate 5 ml 06/16/17 23:48 06/17/17 00:11 Tylenol W/ Codeine 5 Ml Ud Cup PO 06/16/17 23:49 5 ml STAT ONE Administration Acetaminophen/Codeine Phosphate Confirm 06/17/17 00:03 Tylenol W/ Codeine 5 Ml Ud Cup Administered 06/17/17 00:04 Dose 5 ml .ROUTE .STK-MED ONE Albuterol/Ipratropium 3 ml 06/17/17 01:03 Duoneb 0.5-3 Mg/3 Ml Neb IH 06/17/17 01:04 STAT ONE Sodium Chloride 1,000 mls @ 999 mls/hr 06/16/17 22:56 06/16/17 23:00 Sodium Chloride 0.9% 1000 Ml IV 06/16/17 23:56 999 mls/hr .Q1H1M STA Administration Sodium Chloride Confirm 06/16/17 22:59 Sodium Chloride 0.9% 1000 Ml Administered 06/16/17 23:00 Dose 1,000 mls @ ud .ROUTE .STK-MED ONE Sodium Chloride 500 mls @ 500 mls/hr 06/17/17 00:00 06/17/17 00:11 Sodium Chloride 0.9% 500 Ml IV 06/17/17 00:59 500 mls/hr .Q1H ONE Administration Sodium Chloride Confirm 06/17/17 00:03 Sodium Chloride 0.9% 1000 Ml Administered 06/17/17 00:04 Dose 1,000 mls @ ud .ROUTE .STK-MED ONE Oseltamivir Phosphate 75 mg 06/17/17 00:00 06/17/17 00:11 Tamiflu 75mg Capsule PO 06/17/17 00:01 75 mg STAT ONE Administration Oseltamivir Phosphate Confirm 06/17/17 00:03 Tamiflu 75mg Capsule Administered 06/17/17 00:04 Dose 75 mg PO .STK-MED ONE Lab/Rad Data: Laboratory Result Diagrams 06/16/17 22:33 06/16/17 22:33 Laboratory Results 06/16/17 06/16/17 06/16/17 Range/Units 22:53 22:41 22:40 WBC (4.0-10.5) K/mm3 RBC (4.1-5.6) M/mm3 Hgb (12.5-18.0) gm/dl Hct (42-50) % MCV (78-100) fl MCH (26-32) pg MCHC (32-36) g/dl RDW (11.5-14.0) % Plt Count (150-450) K/mm3 MPV (6-9.5) fl Segmented Neutrophils (36.-66.) % Band Neutrophils (0.0-2.0) % Lymphocytes (Manual) (24-44) % Monocytes (Manual) (0.0-12.0) % Eosinophils (Manual) (0.00-3.0) % Differential Comment Platelet Estimate (NORMAL) Sodium (136-145) mEq/L Potassium (3.5-5.1) mEq/L Chloride (98-107) mEq/L Carbon Dioxide (21-32) mEq/L Anion Gap (5-15) MEQ/L BUN (9-20) mg/dL Creatinine (0.55-1.30) mg/dl Estimated GFR ML/MIN Glucose (70-110) MG/DL Lactic Acid 1.0 (0.4-2.0) Calcium (8.5-10.1) mg/dL Total Bilirubin (0.2-1.0) mg/dL AST (15-37) U/L ALT (12-78) U/L Alkaline Phosphatase (46-116) U/L Troponin I 0.053 (0.000-0.056) ng/ml Serum Total Protein (6.4-8.2) gm/dL Albumin (3.4-5.0) g/dL Ur Collection Type VOID Urine Color YELLOW (YELLOW) Urine Appearance CLEAR (CLEAR) Urine pH 5.0 (5-6) Ur Specific [place] 1.015 (1.005-1.025) Urine Protein TRACE (Negative) Urine Ketones NEGATIVE (NEGATIVE) Urine Blood 50 (0-5) Antonio/ul Urine Nitrite NEGATIVE (NEGATIVE) Urine Bilirubin NEGATIVE (NEGATIVE) Urine Urobilinogen NORMAL (0-1) mg/dL Ur Leukocyte Esterase NEGATIVE (NEGATIVE) Urine Microscopic RBC 2-5 (0-2) /HPF Urine Microscopic WBC 0-2 (0-5) /HPF Ur Epithelial Cells RARE (FEW) /HPF Urine Bacteria FEW (NEGATIVE) /HPF Urine Culture Reflexed YES (NO) Urine Glucose NEGATIVE (NEGATIVE) mg/dL Influenza Type A Ag (NEGATIVE) Influenza Type B Ag (NEGATIVE) RSV (PCR) (Negative) Specimen Received 06/16/17223906/16/17 06/16/17 06/16/17 Range/Units 22:33 22:33 22:33 WBC 9.0 (4.0-10.5) K/mm3 RBC 5.00 (4.1-5.6) M/mm3 Hgb 14.1 (12.5-18.0) gm/dl Hct 44.1 (42-50) % MCV 88.2 (78-100) fl MCH 28.2 (26-32) pg MCHC 32.0 (32-36) g/dl RDW 14.5 H (11.5-14.0) % Plt Count 136 L (150-450) K/mm3 MPV 11.6 H (6-9.5) fl Segmented Neutrophils 84 H (36.-66.) % Band Neutrophils 3 H (0.0-2.0) % Lymphocytes (Manual) 5 L (24-44) % Monocytes (Manual) 7 (0.0-12.0) % Eosinophils (Manual) 1 (0.00-3.0) % Differential Comment NORMAL Platelet Estimate NORMAL (NORMAL) Sodium 134 L (136-145) mEq/L Potassium 4.6 (3.5-5.1) mEq/L Chloride 103 (98-107) mEq/L Carbon Dioxide 22.9 (21-32) mEq/L Anion Gap 12.8 (5-15) MEQ/L BUN 31 H (9-20) mg/dL Creatinine 2.08 H (0.55-1.30) mg/dl Estimated GFR 34 ML/MIN Glucose 176 H (70-110) MG/DL Lactic Acid (0.4-2.0) Calcium 9.2 (8.5-10.1) mg/dL Total Bilirubin 1.10 H (0.2-1.0) mg/dL AST 21 (15-37) U/L ALT 24 (12-78) U/L Alkaline Phosphatase 140 H (46-116) U/L Troponin I (0.000-0.056) ng/ml Serum Total Protein 7.6 (6.4-8.2) gm/dL Albumin 3.8 (3.4-5.0) g/dL Ur Collection Type Urine Color (YELLOW) Urine Appearance (CLEAR) Urine pH (5-6) Ur Specific [place] (1.005-1.025) Urine Protein (Negative) Urine Ketones (NEGATIVE) Urine Blood (0-5) Antonio/ul Urine Nitrite (NEGATIVE) Urine Bilirubin (NEGATIVE) Urine Urobilinogen (0-1) mg/dL Ur Leukocyte Esterase (NEGATIVE) Urine Microscopic RBC (0-2) /HPF Urine Microscopic WBC (0-5) /HPF Ur Epithelial Cells (FEW) /HPF Urine Bacteria (NEGATIVE) /HPF Urine Culture Reflexed (NO) Urine Glucose (NEGATIVE) mg/dL Influenza Type A Ag POSITIVE (NEGATIVE) Influenza Type B Ag NEGATIVE (NEGATIVE) RSV (PCR) NEGATIVE (Negative) Specimen Received - Progress Progress: unchanged Air Movement: fair Progress Note: 06/17/17 01:12 The patient is influenza A positive and was given a dose of tamiflu. The troponin is 0.053 and the EKG does not show any acute changes. His creatinine is over 2 and the patient was given 1.5 liters of fluids. Pt still feels very weak and now complains of shortness of breath. The CXR does not show any acute findings. The patient will be given a duoneb for slight wheezing and shortness of breath. Pt has been admitted to Dr Jiménez for influenza, acute on chronic kidney injury and chest pain. - Departure Time of Disposition: 01:16 Departure Disposition: Observation Clinical Impression: Influenza A Chest pain Qualifiers: Chest pain type: unspecified Qualified Code(s): R07.9 - Chest pain, unspecified Kidney injury Qualifiers: Encounter type: initial encounter Laterality: unspecified laterality Qualified Code(s): S37.009A - Unspecified injury of unspecified kidney, initial encounter Condition: Fair Critical Care Time: Yes Critical Care Time(excluding separately billable procedures): 75-104 minutes Referrals: ROLANDO PLASCENCIA [Primary Care Provider] -
[2017-06-16] MEDS ORDERED: Sodium Chloride 0.9% 1000 ML 1,000 ML IV STA (22:56)
[2017-06-16] MEDS ORDERED: Sodium Chloride 0.9% 1000 ML 1,000 ML ONE (22:59)
[2017-06-16 23:03] LABS: ALBUMIN 3.8 g/dL (3.4-5.0); ANION GAP 12.8 MEQ/L (5-15); BILIRUBIN,TOTAL 1.1 mg/dL (0.2-1.0); Calcium 9.2 mg/dL (8.5-10.1); Carbon Dioxide 22.9 mEq/L (21-32); Creatinine 1 2.08 mg/dl (0.55-1.30); Potassium 4.6 mEq/L (3.5-5.1); Total Protein 7.6 gm/dL (6.4-8.2)
[2017-06-16 23:15] LABS: Appearance CLEAR (CLEAR); Bacteria FEW /HPF (NEGATIVE); Bilirubin NEGATIVE (NEGATIVE); Blood 50 Ery/ul (0-5); Epithelial Cells RARE /HPF (FEW); Glucose NEGATIVE (NEGATIVE); Ketones NEGATIVE (NEGATIVE); Leukocyte Esterase NEGATIVE (NEGATIVE); Nitrite NEGATIVE (NEGATIVE); Protein,Urine Dip TRACE (Negative); Specific Gravity 1.015 (1.005-1.025); Urobilinogen NORMAL mg/dL (0-1); WBC 0-2 /HPF (0-5)
[2017-06-16 23:22] LABS: BAND 3 % (0.0-2.0); Eosinophil 1 % (0.00-3.0); Lymphocytes 5 % (24-44); Monocyte 7 % (0.0-12.0); Neutrophils 84 % (36.-66.); Platelet Estimate NORMAL (NORMAL); Total Cells Counted 100
[2017-06-16] MEDS ORDERED: TYLENOL EXTRA STRENGTH 500 MG ONE (23:39)
[2017-06-16] MEDS ORDERED: TYLENOL EXTRA STRENGTH 500 MG PO STA (23:40)
[2017-06-16] MEDS ORDERED: TYLENOL W/ CODEINE 5 ML UD CUP PO ONE (23:48)
[2017-06-16 23:56] LABS: INFLUENZA A POSITIVE (NEGATIVE); INFLUENZA B NEGATIVE (NEGATIVE); RESPIRATORY SYNCTIAL VIRUS NEGATIVE (Negative)
[2017-06-17] MEDS ORDERED: Sodium Chloride 0.9% 500 ML 500 ML IV ONE
[2017-06-17] MEDS ORDERED: Sodium Chloride 0.9% 1000 ML 1,000 ML ONE (00:03)
[2017-06-17] MEDS ORDERED: TYLENOL W/ CODEINE 5 ML UD CUP ONE (00:03)
[2017-06-17] MEDS ORDERED: Tamiflu 75MG Capsule PO ONE ×2 (00:03)
[2017-06-17] MEDS ORDERED: DUONEB 0.5-3 MG/3 ml Neb IH ONE ×2 (01:03→01:15)
[2017-06-17] MEDS ORDERED: MAALOX ES 30 ML UNIT DOSE PO PRN (01:17)
[2017-06-17] MEDS ORDERED: Senokot-S Tablet PO PRN (01:17)
[2017-06-17] MEDS ORDERED: MILK OF MAGNESIA 30 ML PO PRN (01:17)
[2017-06-17] MEDS ORDERED: Zofran 4 MG/2 ML VIAL IV PRN (01:17)
[2017-06-17 06:41] LABS: Risk Ratio 2.7
[2017-06-17 06:44] LABS: TROPONIN 0.064 ng/ml (0.000-0.056)
[2017-06-17] MEDS: TYLENOL 325 MG PO PRN (07:15)
--- NOTE | 2017-06-17 08:26 | PCM.HP ---
History of Present Illness - Chief Complaint Chief Complaint: Shortness of Breath Date: 06/17/17 History of Present Illness: is a 71 year old male. who abruptly began feeling ill yesterday evening with fever, chills, shortness of breath, fatigue, muscle aches and nausea. He presented to the ED and was found to be positive for influenza. He vomitted a few hours ago. He has remained febrile and very weak. He has not had anything to eat yet since arrival. He denies chest pain at this time. He has muscle aches throughout worse with coughing and feels short of breath with moving. - Review of Systems Constitutional: Fever, Chills, Fatigue Eyes: No Symptoms Ears, Nose, & Throat: No Symptoms Respiratory: Cough, Short Of Breath Cardiac: No Chest Pain, No Edema, No Syncope Abdominal/Gastrointestinal: Nausea, Vomiting, No Abdominal Pain, No Diarrhea Genitourinary Symptoms: No Dysuria Musculoskeletal: No Back Pain, No Neck Pain Skin: No Rash Neurological: No Dizziness, No Focal Weakness, No Sensory Changes Psychological: No Symptoms Endocrine: No Symptoms Hematologic/Lymphatic: No Symptoms Immunological/Allergic: No Symptoms Medications & Allergies Home Medications: Home Medication List Apixaban [Eliquis] 5 mg PO BID 04/23/16 [History Confirmed 06/17/17] Benazepril HCl [Lotensin] 10 mg PO HS 04/23/16 [History Confirmed 06/17/17] Carvedilol 12.5 mg [Coreg 12.5 mg] 6.25 mg PO BID 04/23/16 [History Confirmed 06/17/17] Insulin Glargine [Lantus Insulin] 0 unit SQ HS 04/23/16 [History Confirmed 06/17/17] Lorazepam 1 mg [Ativan 1 MG] 1 mg PO UD PRN 04/23/16 [History Confirmed ] Nitroglycerin 0.4 mg Tablet [Nitrostat 0.4 MG Tablet] 0.4 mg SL UD [History Confirmed 06/17/17] Nitroglycerin [Nitro-Dur] 1 each TD UD 04/23/16 [History Confirmed 06/17/17] Omeprazole 20 MG [Prilosec 20 mg] 20 mg PO BID 04/23/16 [History Confirmed 06/17] Pravastatin Sodium 40 mg PO HS 04/23/16 [History Confirmed 06/17/17] Tramadol HCl 50 mg [Ultram 50 mg] 50 mg PO UD PRN 04/23/16 [History Confirmed 06/17/17] Benazepril HCl 10 mg [Lotensin 10 MG] 10 mg PO DAILY 06/17/17 [History Confirmed 06/17/17] Lactulose 10 gm PO DAILY 06/17/17 [History Confirmed 06/17/17] Magnesium Oxide [Magnesium] 400 mg PO DAILY 06/17/17 [History Confirmed 06/17/17 ] Saxagliptin HCl [Onglyza] 2.5 mg PO DAILY 06/17/17 [History Confirmed 06/17/17] Allergies/Adverse Reactions: Allergies Allergy/AdvReac Type Severity Reaction Status Date / Time rivaroxaban [From Xarelto] Allergy Severe Verified 10/07/16 19:49 simvastatin [From Zocor] Allergy Intermediate Verified 10/07/16 19:49 penicillin G Allergy Mild Rash Verified 10/07/16 19:49 Sulfa (Sulfonamide Allergy Mild Rash Verified 10/07/16 19:49 Antibiotics) [Sulfa(Sulfonamide Antibiotics)] - Past Medical History Past Medical History: Yes Neurological History: Peripheral Neuropathy Cardiac History: Arrhythmia, Deep Vein Thrombosis, High Cholesterol, Hypertension, Other Respiratory History: No Pertinent History, Sleep Apnea Endocrine Medical History: Diabetes Type II Musculoskelatal History: Arthritis GI Medical History: Hernia History: Renal Disease Pyscho-Social History: No Pertinent History Male Reproductive Disorders: No Pertinent History Comment: Pacemaker, 3 stents, kidney ca - Past Surgical History Past Surgical History: Yes Neuro Surgical History: No Pertinent History Cardiac History: Cardiac Stent, Pacemaker Respiratory Surgery: No Pertinent History GI Surgical History: No Pertinent History Genitourinary Surgical Hx: Kidney Surgery Musculskeletal Surgical Hx: Orthopedic Surgery Male Surgical History: No Pertinent History Other Surgical History: right kidney removal, mult paracentisis- last on october 04 - took 3l of clear fluid- results not back - Social History Smoking Status: Never smoker Exposure to second hand smoke: No Alcohol: None Drug Use: none - Physical Exam Vital Signs: Vital Signs - 24 hr Temp Pulse Resp BP Pulse Ox 06/17/17 07:18 102.6 F 60 22 148/67 94 L 06/17/17 04:00 92 L 06/17/17 02:26 99.7 F 59 L 20 119/56 91 L 06/17/17 01:13 101.3 F 60 16 121/63 95 06/17/17 01:03 60 22 95 06/16/17 23:40 102.5 F 70 16 132/78 98 06/16/17 22:07 99.9 F 140/68 General Appearance: mild distress, alert, obese Neurologic Exam: alert, oriented x 3, cooperative, normal mood/affect, nml station & gait, sensation nml, No motor deficits Eye Exam: PERRL/EOMI, eyes nml inspection Ears, Nose, Throat Exam: normal ENT inspection, pharynx normal, dry mucous membranes, No moist mucous membranes Neck Exam: normal inspection, non-tender, supple, full range of motion Respiratory Exam: wheezing, No respiratory distress Cardiovascular Exam: regular rate/rhythm, normal heart sounds, normal peripheral pulses Gastrointestinal/Abdomen Exam: soft, normal bowel sounds, No tenderness, No mass Back Exam: normal inspection, normal range of motion, No CVA tenderness, No vertebral tenderness Extremity Exam: normal inspection, normal range of motion, pelvis stable Skin Exam: normal color, warm, dry, No rash Lymphatic Exam: No adenopathy Results - Labs Lab/Micro Results: Accuchecks Date 06/17/17 Time 07:33 Accucheck Value: 168 Lab Results-Last 24 Hours 06/17/17 06/17/17 Range/Units 02:11 05:30 Troponin I 0.073 H* 0.064 H* (0.000-0.056) ng/ml Triglycerides 61 (30-200) mg/dL Cholesterol 126 (100-200) mg/dL LDL Cholesterol 70 (5-99) mg/dL HDL Cholesterol 46 (35-60) mg/dL Heart Disease Risk Ratio 2.7 Accuchecks Date 06/17/17 Time 07:33 Accucheck Value: 168 - Other Procedures and Tests Respiratory Therapy 06/17/17 03:00 BiPap/CPAP Assessment ROUTINE 06/17/17 07:25 EKG ROUTINE 06/18/17 05:00 EKG ROUTINE 06/19/17 05:00 EKG ROUTINE 06/20/17 05:00 EKG ROUTINE Assessment/Plan (1) Influenza A Current Visit: Yes Status: Acute Assessment & Plan: treat with tamiflu with his wheezing and severity of symptoms treat for sepsis from influenza will add hydrocortisone 50 mg q6h for today and likely quickly wean monitor sugars on this continue lantus and sliding scale correction gentle hydration with his history of ascities and volume overload and his chronic kidney disease advance diet as tolerated continue eliquis, aspirin, betablocker and statin. Hold scarlet with the acute on chronic kidney injury He denies any chest pain at this time. WIth his acute infection and chronic kidney disease contributing to the very minimal rise in troponins from the suspected type 2 [place] will monitor for any chest pain or worsening and consult with cardiology if needed currently with no chest pain and the increased metabolic demand the likely reason for rise. Code(s): J10.1 - FLU DUE TO OTH IDENT INFLUENZA VIRUS W OTH RESP MANIFEST (2) NSTEMI (non-ST elevated myocardial infarction) Current Visit: Yes Status: Acute Code(s): I21.4 - NON-ST ELEVATION (NSTEMI) MYOCARDIAL INFARCTION (3) Acute on chronic kidney failure Current Visit: Yes Status: Acute Code(s): N17.9 - ACUTE KIDNEY FAILURE, UNSPECIFIED; N18.9 - CHRONIC KIDNEY DISEASE, UNSPECIFIED (4) Vomiting Current Visit: Yes Status: Acute Code(s): R11.10 - VOMITING, UNSPECIFIED (5) Dehydration Current Visit: Yes Status: Acute Code(s): E86.0 - DEHYDRATION (6) Type 2 diabetes mellitus Current Visit: Yes Status: Chronic (7) Hypertension Current Visit: Yes Status: Chronic Code(s): I10 - ESSENTIAL (PRIMARY) HYPERTENSION (8) History of DVT (deep vein thrombosis) Current Visit: Yes Status: Chronic Code(s): Z86.718 - PERSONAL HISTORY OF OTHER VENOUS THROMBOSIS AND EMBOLISM
[2017-06-17] MEDS ORDERED: solu-CORTEF 100MG IV SCH (08:30)
[2017-06-17] MEDS ORDERED: Ativan 1 MG PO PRN (08:40)
[2017-06-17] MEDS ORDERED: ULTRAM 50 MG PO PRN (08:40)
[2017-06-17] MEDS: Lactated Ringers 1,000 ML IV SCH (08:41)
[2017-06-17] MEDS ORDERED: Nitrostat 0.4 MG Tablet SL PRN (08:45)
--- NOTE | 2017-06-17 08:56 | XRAY ---
Indication: Cough, congestion, and fever. Comparison: October 07, 2016. PA/lateral chest remains clear. Heart is not enlarged with stable left-sided single lead pacemaker and bilateral hilar/mediastinal calcified nodes. Bony thorax intact again with mild osteopenia, degenerative changes, and right shoulder surgery. Impression: Nonacute chest with chronic features.
[2017-06-17] MEDS: ELIQUIS PO SCH ×2 (09:26→21:59)
[2017-06-17] MEDS: Coreg 6.25 MG PO SCH ×2 (09:26→21:58)
[2017-06-17] MEDS: Protonix 40MG Tablet PO SCH ×2 (09:27→21:58)
[2017-06-17] MEDS: OSELTAMIVIR PHOSPHATE 30 MG CAP PO SCH ×2 (09:27→21:58)
[2017-06-17] MEDS: MAG-OX 400 PO SCH (09:27)
[2017-06-17] MEDS ORDERED: NON-FORMULARY ITEM (Omeprazole 20 Mg [Prilosec 20 Mg] 20 MG) PO SCH (10:00)
[2017-06-17] MEDS ORDERED: Lantus Insulin SQ SCH (10:00)
[2017-06-17] MEDS ORDERED: Ecotrin 325 MG PO SCH (10:00)
[2017-06-17] MEDS: solu-CORTEF 100MG IV SCH ×3 (10:05→17:52)
[2017-06-17] MEDS: PRAVASTATIN SODIUM PO SCH (21:58)
[2017-06-17] MEDS: NovoLOG Insulin SQ PRN (21:59)
[2017-06-17] MEDS ORDERED: NON-FORMULARY ITEM (Pravastatin Sodium [Pravastatin Sodium] 40 MG) PO SCH (22:00)
[2017-06-17] MEDS: Lantus Insulin SQ SCH (22:00)
[2017-06-18] MEDS: solu-CORTEF 100MG IV SCH ×2 (00:29→05:43)
[2017-06-18] MEDS: Lactated Ringers 1,000 ML IV SCH ×3 (04:22→19:27)
[2017-06-18 05:32] LABS: Basophil (Absolute #) 0 (0-0.4); Eosinophil (Absolute #) 0 (0-0.5); Granulocyte Absolute (ANC) 3.73 (1.4-6.9); Granulocytes % 76.1 % (36.0-66.0); Hematocrit 40.5 % (42-50); Lymphocyte (Absolute #) 0.68 (1.0-4.6); Lymphocytes % 13.9 % (24.0-44.0); Mean Cell Volume 88.2 fl (78-100); Mean Corpuscular Hemoglobin 28.3 pg (26-32); Mean Corpuscular Hgb Concent. 32.1 g/dl (32-36); Mean Platelet Volume 11.7 fl (6-9.5); Monocyte (Absolute #) 0.49 (0.0-1.3); Platelet Count 97 K/mm3 (150-450); Red Blood Count 4.59 M/mm3 (4.1-5.6); Red Cell Distribution Width 14.3 % (11.5-14.0); White Blood Count 4.9 K/mm3 (4.0-10.5)
[2017-06-18 06:34] LABS: ALBUMIN 3.2 g/dL (3.4-5.0); ANION GAP 12.7 MEQ/L (5-15); BILIRUBIN,TOTAL 0.7 mg/dL (0.2-1.0); Calcium 8.6 mg/dL (8.5-10.1); Carbon Dioxide 21.6 mEq/L (21-32); Creatinine 1 2.41 mg/dl (0.55-1.30); Potassium 4.9 mEq/L (3.5-5.1)
[2017-06-18 06:42] LABS: Lymphocytes 19 % (24-44); Monocyte 4 % (0.0-12.0); Neutrophils 77 % (36.-66.); Total Cells Counted 100
[2017-06-18 06:44] LABS: Platelet Estimate DECREASED (NORMAL)
[2017-06-18] MEDS: NovoLOG Insulin SQ PRN ×4 (07:56→22:17)
[2017-06-18] MEDS ORDERED: Lactated Ringers 1,000 ML IV ONE (08:33)
--- NOTE | 2017-06-18 08:44 | PCM.NOTE ---
Date and Time: 06/18/17 0844 Subjective Assessment: He is feeling much better today no chest pain still sore with any coughing all over urinating well no vomiting. Objective Exam General Appearance: no apparent distress, alert Neurologic Exam: alert, oriented x 3, cooperative, normal mood/affect, nml cerebellar function, sensation nml, No motor deficits Skin Exam: normal color, warm, dry Eye Exam: PERRL, EOMI, eyes nml inspection Ears, Nose, Throat Exam: normal ENT inspection, pharynx normal, moist mucous membranes Neck Exam: normal inspection, non-tender, supple, full range of motion Respiratory Exam: normal breath sounds, lungs clear, No respiratory distress Cardiovascular Exam: regular rate/rhythm, normal heart sounds Gastrointestinal/Abdomen Exam: soft, No tenderness, No mass Extremity Exam: normal inspection, normal range of motion Back Exam: normal inspection, normal range of motion, No CVA tenderness, No vertebral tenderness Male Genitalia Exam: deferred Rectal Exam: deferred OBJECTIVE DATA Vital Signs: Vital Signs - 24 hr Temp Pulse Resp BP Pulse Ox 06/18/17 07:50 95 06/18/17 07:24 98.0 F 62 18 181/83 95 06/18/17 04:00 94 L 06/18/17 03:54 98.7 F 60 15 164/76 94 L 06/18/17 00:00 99.0 F 60 17 153/68 94 L 06/17/17 20:00 99.0 F 61 18 154/72 95 06/17/17 16:00 98.1 F 61 18 141/66 94 L 06/17/17 12:00 93 L 06/17/17 11:25 100.0 F 59 L 18 113/60 93 L Pain Assessment - Last Documented Pain Intensity 0 Pain Scale Used 0-10 Pain Scale Intake and Output: Intake & Output 06/15/17 06/16/17 06/17/17 06/18/17 11:59 11:59 11:59 11:59 Intake Total 360 3022 Output Total 925 Balance 360 2097 Weight 123.5 kg 124.2 kg Lab Results: Accuchecks Date 06/17/17 Date 06/17/17 Date 06/17/17 Time 21:35 Time 16:30 Time 11:30 Accucheck Value: 294 Accucheck Value: 238 Accucheck Value: 190 Lab Results-Last 24 Hours 06/18/17 06/18/17 Range/Units 05:20 05:20 WBC 4.9 (4.0-10.5) K/mm3 RBC 4.59 (4.1-5.6) M/mm3 Hgb 13.0 (12.5-18.0) gm/dl Hct 40.5 L (42-50) % MCV 88.2 (78-100) fl MCH 28.3 (26-32) pg MCHC 32.1 (32-36) g/dl RDW 14.3 H (11.5-14.0) % Plt Count 97 L (150-450) K/mm3 MPV 11.7 H (6-9.5) fl Gran % 76.1 H (36.0-66.0) % Lymphocytes % 13.9 L (24.0-44.0) % Monocytes % 10.0 (0.0-12.0) % Eosinophils % 0.0 (0.00-5.0) % Basophils % 0.0 (0.0-0.4) % Segmented Neutrophils 77 H (36.-66.) % Lymphocytes (Manual) 19 L (24-44) % Monocytes (Manual) 4 (0.0-12.0) % Basophils # 0 (0-0.4) Differential Comment NORMAL Platelet Estimate DECREASED (NORMAL) Sodium 131 L (136-145) mEq/L Potassium 4.9 (3.5-5.1) mEq/L Chloride 102 (98-107) mEq/L Carbon Dioxide 21.6 (21-32) mEq/L Anion Gap 12.7 (5-15) MEQ/L BUN 40 H (9-20) mg/dL Creatinine 2.41 H (0.55-1.30) mg/dl Estimated GFR 28 ML/MIN Glucose 278 H (70-110) MG/DL Calcium 8.6 (8.5-10.1) mg/dL Total Bilirubin 0.70 (0.2-1.0) mg/dL AST 25 (15-37) U/L ALT 24 (12-78) U/L Alkaline Phosphatase 105 (46-116) U/L Serum Total Protein 7.0 (6.4-8.2) gm/dL Albumin 3.2 L (3.4-5.0) g/dL Radiology Exams: Radiology Procedures Category Date Time Status ECHO W/2D AND DOPPLER [US] Routine Exams 06/18/17 Ordered Assessment/Plan (1) Influenza A Current Visit: Yes Status: Acute Assessment & Plan: improving continue tamiflu with improvement in symptoms will stop the hydrocortisone monitor the sugars continue lantus with sliding scale correction as well with worsening renal function will give bolus and increase fluids check echo with the nstemi but still no chest pain now. bp increaseing increase carvedilol and add hydralazine Code(s): J10.1 - FLU DUE TO OTH IDENT INFLUENZA VIRUS W OTH RESP MANIFEST (2) NSTEMI (non-ST elevated myocardial infarction) Current Visit: Yes Status: Acute Code(s): I21.4 - NON-ST ELEVATION (NSTEMI) MYOCARDIAL INFARCTION (3) Acute on chronic kidney failure Current Visit: Yes Status: Acute Code(s): N17.9 - ACUTE KIDNEY FAILURE, UNSPECIFIED; N18.9 - CHRONIC KIDNEY DISEASE, UNSPECIFIED (4) Vomiting Current Visit: Yes Status: Acute Code(s): R11.10 - VOMITING, UNSPECIFIED (5) Dehydration Current Visit: Yes Status: Acute Code(s): E86.0 - DEHYDRATION (6) Type 2 diabetes mellitus Current Visit: Yes Status: Chronic (7) Hypertension Current Visit: Yes Status: Chronic Code(s): I10 - ESSENTIAL (PRIMARY) HYPERTENSION (8) History of DVT (deep vein thrombosis) Current Visit: Yes Status: Chronic Code(s): Z86.718 - PERSONAL HISTORY OF OTHER VENOUS THROMBOSIS AND EMBOLISM
[2017-06-18] MEDS: Protonix 40MG Tablet PO SCH ×2 (11:29→21:06)
[2017-06-18] MEDS: COREG 12.5 MG PO SCH ×2 (11:30→21:06)
[2017-06-18] MEDS: Apresoline 25 MG TABLET PO SCH ×5 (11:30→21:07)
[2017-06-18] MEDS: ELIQUIS PO SCH ×2 (11:30→21:07)
[2017-06-18] MEDS: Senokot-S Tablet PO SCH ×2 (11:30→21:07)
[2017-06-18] MEDS: OSELTAMIVIR PHOSPHATE 30 MG CAP PO SCH ×2 (11:30→22:18)
[2017-06-18] MEDS: MAG-OX 400 PO SCH (11:30)
[2017-06-18] MEDS: PRAVASTATIN SODIUM PO SCH (21:05)
[2017-06-18] MEDS: Lantus Insulin SQ SCH (22:17)
[2017-06-19] MEDS: TYLENOL 325 MG PO PRN (01:37)
[2017-06-19] MEDS: Lactated Ringers 1,000 ML IV SCH (05:27)
[2017-06-19 07:35] VITALS: BP 131/72; PULSE 67; O2SAT 95
[2017-06-19 08:23] LABS: ANION GAP 13.1 MEQ/L (5-15); Calcium 8.7 mg/dL (8.5-10.1); Carbon Dioxide 23.6 mEq/L (21-32); Creatinine 1 2.13 mg/dl (0.55-1.30); Potassium 4.3 mEq/L (3.5-5.1)
--- NOTE | 2017-06-19 08:37 | PCM.DS ---
Discharge Summary Date of Admission: 06/18/17 08:44 Date of Discharge: 06/19/2017 Admitting Physician: ROLANDO PLASCENCIA Primary Care Provider: ROLANDO PLASCENCIA Allergies Allergies rivaroxaban [From Xarelto] Allergy (Severe, Verified 10/07/16 19:49) simvastatin [From Zocor] Allergy (Intermediate, Verified 10/07/16 19:49) penicillin G Allergy (Mild, Verified 10/07/16 19:49) Rash Sulfa (Sulfonamide Antibiotics) [Sulfa(Sulfonamide Antibiotics)] Allergy (Mild, Verified 10/07/16 19:49) Rash Hospital Summary - Hospital Course Hospital Course: Mr. Valle presented with severe weakness shortness of breath cough and fever was found to have influenza A. He was febrile and having wheezing. He also had acute on chronic renal failure. He was treated with tamiflu and due to severity of symptoms hydrocortisone 50 mg q6h was added for 24 hours. He was placed on lantus as per home meds with sliding scale correction. His scarlet inhibitor was held and hydralazine added with his increased bp. His carvedilol was increased as well. With the fever, tachycardia and ckd he did have very mild increase in troponins that then began trending down and had ekg with his chronic paced ventricular rhythm. He had echo results are pending. The troponin elevation suspected due to type 2 demand ischemia with the ckd. He was not experiencing chest pain at any time. He is going to continue tamiflu stay off the scarlet inhibitor until f/u and continue hydralazine for his bp. - Vitals & Intake/Output Vital Signs: Vital Signs Temperature 98.9 F 06/19/17 07:32 Pulse Rate 67 06/19/17 07:32 Respiratory Rate 20 06/19/17 07:32 Blood Pressure 131/72 06/19/17 07:32 O2 Sat by Pulse Oximetry 95 06/19/17 07:32 Intake & Output: Intake & Output 06/16/17 06/17/17 06/18/17 06/19/17 11:59 11:59 11:59 11:59 Intake Total 1320 Output Total 300 1350 Balance -300 -30 Weight 124.5 kg - Lab Result Diagrams: 06/18/17 05:20 06/19/17 08:06 Lab Results-Last 24 Hrs: Accuchecks Date 06/18/17 Time 21:30 Accucheck Value: 198 Accucheck Value: 247 Lab Results-Last 24 Hours 06/19/17 Range/Units 08:06 Sodium 136 (136-145) mEq/L Potassium 4.3 (3.5-5.1) mEq/L Chloride 104 (98-107) mEq/L Carbon Dioxide 23.6 (21-32) mEq/L Anion Gap 13.1 (5-15) MEQ/L BUN 39 H (9-20) mg/dL Creatinine 2.13 H (0.55-1.30) mg/dl Estimated GFR 33 ML/MIN Glucose 113 H (70-110) MG/DL Calcium 8.7 (8.5-10.1) mg/dL Micro Results-Entire Visit: Accuchecks Date 06/18/17 Time 21:30 Accucheck Value: 198 Accucheck Value: 247 Discharge Exam General Appearance: no apparent distress, alert, obese Neurologic Exam: alert, oriented x 3, cooperative, normal mood/affect, sensation nml, No motor deficits Skin Exam: normal color, warm, dry Eye Exam: PERRL, EOMI, eyes nml inspection Ears, Nose, Throat Exam: normal ENT inspection, pharynx normal, moist mucous membranes Neck Exam: normal inspection, non-tender, supple, full range of motion Respiratory Exam: lungs clear, rhonchi, No respiratory distress Cardiovascular Exam: regular rate/rhythm, murmur Gastrointestinal/Abdomen Exam: soft, No tenderness, No mass Extremity Exam: normal inspection, normal range of motion Back Exam: normal inspection, normal range of motion, No CVA tenderness, No vertebral tenderness Male Genitalia Exam: deferred Rectal Exam: deferred Final Diagnosis/Problem List - Final Discharge Diagnosis/Problem (1) Influenza A Status: Acute (2) NSTEMI (non-ST elevated myocardial infarction) Status: Acute (3) Acute on chronic kidney failure Status: Acute (4) Vomiting Status: Acute (5) Dehydration Status: Acute (6) Type 2 diabetes mellitus Status: Chronic (7) Hypertension Status: Chronic (8) History of DVT (deep vein thrombosis) Status: Chronic - Discharge Discharge Date: 06/19/17 Disposition: Home, Self-Care Condition: Fair Prescriptions: New Carvedilol 12.5 mg [Coreg 12.5 mg] 12.5 mg PO BID tablet Hydralazine HCl 50 mg PO TID #90 tablet Oseltamivir Phosphate [Oseltamivir Phosphate 30 mg Cap] 30 mg PO BID #8 capsule Continue Omeprazole 20 MG [Prilosec 20 mg] 20 mg PO BID Lorazepam 1 mg [Ativan 1 MG] 1 mg PO UD PRN PRN Reason: Anxiety Tramadol HCl 50 mg [Ultram 50 mg] 50 mg PO UD PRN PRN Reason: Pain Pravastatin Sodium 40 mg PO HS Nitroglycerin [Nitro-Dur] 1 each TD UD Apixaban [Eliquis] 5 mg PO BID Nitroglycerin 0.4 mg Tablet [Nitrostat 0.4 MG Tablet] 0.4 mg SL UD Saxagliptin HCl [Onglyza] 2.5 mg PO DAILY Magnesium Oxide [Magnesium] 400 mg PO DAILY Lactulose 10 gm PO DAILY Changed Insulin Glargine [Lantus Insulin] 30 unit SQ HS #0 Discontinued Benazepril HCl [Lotensin] 10 mg PO HS Carvedilol 12.5 mg [Coreg 12.5 mg] 6.25 mg PO BID Benazepril HCl 10 mg [Lotensin 10 MG] 10 mg PO DAILY Instructions: Dehydration, Adult (DC), Flu, Adult (DC), Foot Care for Diabetics Follow up with: ROLANDO PLASCENCIA [Primary Care Provider] - 06/24/17 10:45 am Forms: Discharge Instructions
--- NOTE | 2017-06-20 07:41 | ECHO ---
DATE OF PROCEDURE: 06/18/2017 CLINICAL INFORMATION: Heart failure. The M-mode 2D, and Doppler echocardiogram including color flow Doppler shows the left ventricle is dilated with a dimension of 6.2 cm. The septal wall thickness is 1.1 cm. The left ventricular posterior wall thickness is increased at 1.6 cm. The left ventricular ejection fraction is calculated to be 31%. The left ventricular apex is not well visualized. There is a moderate decrease in left ventricular systolic function. The right ventricle appears to be normal in size and function. The left atrium is mildly dilated with a dimension of 4.7 cm. The interatrial septum is intact. The right atrium is mildly dilated. The aortic valve opens well and its leaflets are sclerotic. There is mild to moderate aortic regurgitation present. There is mild mitral regurgitation present. There is mild tricuspid regurgitation with mild pulmonary hypertension. Right ventricular systolic pressure is calculated to be elevated at 31 mm of Mercury. There is mild pulmonic regurgitation. The aortic root is mildly dilated with a dimension of 3.9 cm. There is no pericardial effusion present. IMPRESSION: 1) MODERATE IMPAIRMENT OF THE LEFT VENTRICULAR SYSTOLIC FUNCTION WITH AN EJECTION FRACTION CALCULATED AT 31%. 2) MODERATE DILATATION OF THE LEFT VENTRICLE. 3) MODERATE ASYMMETRIC LEFT VENTRICULAR HYPERTROPHY. 4) MILD LEFT ATRIAL DILATATION. 5) MILD TO MODERATE AORTIC REGURGITATION. 6) MILD MITRAL REGURGITATION. 7) MILD TRICUSPID REGURGITATION WITH MILD PULMONARY HYPERTENSION. 8) MILD DILATATION OF THE AORTIC ROOT.
== END 2017-06-19 10:31 | disposition home or self-care (01) | DRG 193 ==
LOC: ED 21:55 → MED SURG 06-17 01:42 → OBSVTOIN 06-18 08:44
PROVIDERS: ADMIT Family Medicine; ATTEND Family Medicine
DX: J10.1 Influenza due to other identified influenza virus with other respiratory manifestations (principal); R07.9 Chest pain, unspecified; S37.009A Unspecified injury of unspecified kidney, initial encounter; Z95.0 Presence of cardiac pacemaker; G62.9 Polyneuropathy, unspecified; I21.4 Non-ST elevation (NSTEMI) myocardial infarction; G47.30 Sleep apnea, unspecified; N17.9 Acute kidney failure, unspecified; R11.10 Vomiting, unspecified; M19.90 Unspecified osteoarthritis, unspecified site; E86.0 Dehydration; E11.9 Type 2 diabetes mellitus without complications; Z79.4 Long term (current) use of insulin; I10 Essential (primary) hypertension; Z86.718 Personal history of other venous thrombosis and embolism; Z79.01 Long term (current) use of anticoagulants; Z79.899 Other long term (current) drug therapy
CPT/HCPCS: 36000; 36415; 71046; 80048; 80053; 80061; 81000; 82962; 83036; 83605; 83721; 83880; 84484; 85025; 87040; 87086; 87631; 93005; 93268; 93306; 94640; 94660; 96360; 96361; 99285; G0378; J1720; J2405; A9270-GY

== ENCOUNTER 2018-10-01 21:34 | Emergency (ER) | payer MEDICARE, OTHER ==
[2018-10-01] MEDS ORDERED: Sodium Chloride 0.9% 1000 ML 1,000 ML IV SCH (21:45)
--- NOTE | 2018-10-01 22:10 | ERPHSYRPT ---
- History of Present Illness Time Seen by Provider: 10/01/18 22:05 Source: patient, family Physician History: 73-year-old white male with history of peripheral neuropathy, arrhythmia, DVT, sleep apnea, diabetes type 2, arthritis, hernia, pacer, kidney cancer Who was on elequis up until last Saturday and who had a labs the of his stomach and colon on Saturday. Patient brought by his patient apparently had began to have slurry speech became weak fell out of his truck with a syncopal episode which occurred 20-25 minutes prior to arrival. Patient was noted to have left arm weakness by the nurse on arrival this patient returned from head CT he is alert oriented x3. He has normal cranial nerves speech is normal there is no facial droop he has bilateral crepitus 5 over 5 full range of motion to all extremities. Patient does have a skin tear to his right hand and a small skin tear to his left forearm. He denies any neck pain. Past medical history includes peripheral neuropathy, arrhythmia, DVT, sleep apnea, diabetes type 2, arthritis, hernia, pacemaker, patient has had 3 stents, patient with a history of kidney cancer. Past surgical history includes cardiac stent, pacer, right kidney removed, recent stomach biopsy and colon biopsy Past medical history. Timing/Duration: today (25 minutes prior to arrival) Severity: moderate Modifying Factors: Improves With: nothing Associated Symptoms: syncope, weakness (left sided weakness on arrival result), other (slurry speech 25 minutes prior to arrival), No nausea, No vomiting, No abdominal pain, No shortness of breath, No heartburn, No diaphoresis, No cough, No chills, No chest pain, No fever, No headaches, No loss of appetite, No malaise, No rash, No seizure Allergies/Adverse Reactions: rivaroxaban [From Xarelto] Allergy (Severe, Verified 10/07/16 19:49) simvastatin [From Zocor] Allergy (Intermediate, Verified 10/07/16 19:49) penicillin G Allergy (Mild, Verified 10/07/16 19:49) Rash Sulfa (Sulfonamide Antibiotics) [Sulfa(Sulfonamide Antibiotics)] Allergy (Mild, Verified 10/07/16 19:49) Rash Home Medications: Apixaban [Eliquis 5 mg Tablet] 5 mg PO BID 04/23/16 [History] Lorazepam 1 mg [Ativan 1 MG] 1 mg PO UD PRN 04/23/16 [History] Nitroglycerin 0.4 mg Tablet [Nitrostat 0.4 MG Tablet] 0.4 mg SL UD [History] Nitroglycerin [Nitro-Dur] 1 each TD UD 04/23/16 [History] Omeprazole 20 MG [Prilosec 20 mg] 20 mg PO BID 04/23/16 [History] Pravastatin Sodium 40 mg PO HS 04/23/16 [History] Tramadol HCl 50 mg [Ultram 50 mg] 50 mg PO UD PRN 04/23/16 [History] Lactulose 10 gm PO DAILY 06/17/17 [History] Magnesium Oxide [Magnesium] 400 mg PO DAILY 06/17/17 [History] Saxagliptin HCl [Onglyza] 2.5 mg PO DAILY 06/17/17 [History] Hx Tetanus, Diphtheria Vaccination/Date Given: Yes Hx Influenza Vaccination/Date Given: Yes Hx Pneumococcal Vaccination/Date Given: Yes - Review of Systems Constitutional: No Fever, No Chills Eyes: No Symptoms Ears, Nose, & Throat: No Symptoms Respiratory: No Cough, No Dyspnea Cardiac: Syncope, No Chest Pain, No Edema, No Palpitations, No Orthopnea, No PND Abdominal/Gastrointestinal: No Abdominal Pain, No Nausea, No Vomiting, No Diarrhea Genitourinary Symptoms: No Dysuria Musculoskeletal: No Back Pain, No Neck Pain Skin: Other (skin tear right hand for) Neurological: Other (patient noticed by nurse to have left-sided arm weakness on arrival now resolved, patient noticed by his to have slurry speech 25 minutes prior to arrival) Psychological: No Symptoms Endocrine: No Symptoms All Other Systems: Reviewed and Negative - Past Medical History Pertinent Past Medical History: Yes Neurological History: No Pertinent History Cardiac History: Other Respiratory History: No Pertinent History Endocrine Medical History: Diabetes Type II, Hyperthyroidism Musculoskeletal History: Osteoarthritis GI Medical History: Hernia History: Renal Disease Psycho-Social History: No Pertinent History Male Reproductive Disorders: No Pertinent History Other Medical History: DIVERTICULITIS, KIDNEY CANCER WITH REMOVAL OF RIGHT KIDNEY APR 2016. BILATERAL ROTATOR CUFF REPAIRS, PACEMAKER - Past Surgical History Past Surgical History: Yes Neuro Surgical History: No Pertinent History Cardiac: Cardiac Stent, Pacemaker Respiratory: No Pertinent History Gastrointestinal: No Pertinent History Genitourinary: Kidney Surgery Musculoskeletal: Orthopedic Surgery Male Surgical History: No Pertinent History Other Surgical History: right kidney removal, mult paracentisis- last on october 04 - took 3l of clear fluid- results not back - Social History Smoking Status: Never smoker Exposure to second hand smoke: No Drug Use: none Patient Lives Alone: No - Nursing Vital Signs Nursing Vital Signs: Initial Vital Signs Temperature 98.5 F 10/01/18 21:54 Pulse Rate 92 H 10/01/18 21:54 Respiratory Rate 16 10/01/18 21:54 Blood Pressure 162/75 10/01/18 21:54 O2 Sat by Pulse Oximetry 98 10/01/18 21:54 - Physical Exam General Appearance: mild distress, alert Eye Exam: PERRL/EOMI, eyes nml inspection Ears, Nose, Throat Exam: normal ENT inspection, TMs normal, pharynx normal, moist mucous membranes Neck Exam: normal inspection, non-tender, supple, full range of motion Respiratory Exam: normal breath sounds, lungs clear, No respiratory distress Cardiovascular Exam: regular rate/rhythm, normal heart sounds, normal peripheral pulses, capillary refill <2 sec Gastrointestinal/Abdomen Exam: soft, normal bowel sounds, No tenderness, No mass Back Exam: normal inspection, normal range of motion, No CVA tenderness, No vertebral tenderness Extremity Exam: other (skin tear right hand, left forearm), No limited range of motion Neurologic Exam: alert, oriented x 3, retail pharmacist II-XII nml as tested, normal mood/ affect, nml cerebellar function, other (assistant mechanic equal and symmetrical 5 over 5), No facial droop, No slurred speech, No aphasia, No dysarthria, No abnormal retail pharmacist II-XII Lymphatic Exam: No adenopathy SpO2 Interpretation: normal - Course Nursing assessment & vital signs reviewed: Yes EKG Interpreted by Me: RATE (60 bpm), Other (EKG ventricular escape rhythm 60 beats per minute complete left bundle branch block) - Radiology Exams Chest X-ray Interpretation: Interpreted by me (mild increased interstitial lung markings no definite infiltrate) - CT Exams Head CT Interpretation: Tele-radiologist Report (CT head: No acute intracranial hemorrhage. No new mass or obstructive hydrocephalus) Ordered Tests: Active Orders 24 hr Category Date Time Status Accucheck STAT Care 10/01/18 21:43 Active Photocomposition Keyboard Operator STAT Care 10/01/18 21:43 Active EKG-ER Only STAT Care 10/01/18 21:43 Active IV Insertion STAT Care 10/01/18 21:43 Active NPO (ED) STAT Care 10/01/18 21:43 Active Pulse Oximetry (ED) STAT Care 10/01/18 21:43 Active Wound Care STAT Care 10/01/18 22:12 Active CHEST 1 VIEW (PORTABLE) Stat Exams 10/01/18 21:45 Taken HEAD WITHOUT CONTRAST [CT] Stat Exams 10/01/18 21:43 Taken CBC W DIFF Stat Lab 10/01/18 22:10 Completed CMP Stat Lab 10/01/18 22:10 Completed D-DIMER QUANTITATION Stat Lab 10/01/18 22:10 Completed PROTIME WITH INR Stat Lab 10/01/18 22:10 Completed PTT Stat Lab 10/01/18 22:10 Completed TROPONIN Q3H Lab 10/01/18 22:10 Completed Medication Summary Discontinued Medications Generic Name Dose Route Start Last Admin Trade Name Billyq PRN Reason Stop Dose Admin Sodium Chloride 1,000 mls @ 50 mls/hr 10/01/18 21:45 10/01/18 22:20 Sodium Chloride 0.9% 1000 Ml IV 10/31/18 21:44 50 mls/hr .Q20H CHRIST Administration Sodium Chloride Confirm 10/01/18 22:16 Sodium Chloride 0.9% 1000 Ml Administered 10/01/18 22:17 Dose 1,000 mls @ ud .ROUTE .STK-MED ONE Lab/Rad Data: Laboratory Result Diagrams 10/01/18 22:10 10/01/18 22:10 Laboratory Results 10/01/18 10/01/18 10/01/18 Range/Units 22:10 22:10 22:10 WBC (4.0-10.5) K/mm3 RBC (4.1-5.6) M/mm3 Hgb (12.5-18.0) gm/dl Hct (42-50) % MCV (78-100) fl MCH (26-32) pg MCHC (32-36) g/dl RDW (11.5-14.0) % Plt Count (150-450) K/mm3 MPV (6-9.5) fl Gran % (36.0-66.0) % Eos # (Auto) (0-0.5) Absolute Lymphs (auto) (1.0-4.6) Absolute Monos (auto) (0.0-1.3) Lymphocytes % (24.0-44.0) % Monocytes % (0.0-12.0) % Eosinophils % (0.00-5.0) % Basophils % (0.0-0.4) % Absolute Granulocytes (1.4-6.9) Basophils # (0-0.4) PT 14.0 H (8.83-12.87) SECONDS INR 1.20 (0.8-3.0) APTT 29.1 (24.1-36.1) SECONDS D-Dimer 2078 H* (215-500) ng/mL Sodium (137-145) mmol/L Potassium (3.5-5.1) mmol/L Chloride (98-107) mmol/L Carbon Dioxide (22-30) mmol/L Anion Gap (5-15) MEQ/L BUN (9-20) mg/dL Creatinine (0.66-1.25) mg/dL Estimated GFR ML/MIN Glucose (74-106) mg/dL Calcium (8.4-10.2) mg/dL Total Bilirubin (0.2-1.3) mg/dL AST (17-59) U/L ALT (0-50) U/L Alkaline Phosphatase (38-126) U/L Troponin I 0.042 H* (0.000-0.034) ng/mL Serum Total Protein (6.3-8.2) g/dL Albumin (3.5-5.0) g/dL 10/01/18 10/01/18 Range/Units 22:10 22:10 WBC 5.7 (4.0-10.5) K/mm3 RBC 4.41 (4.1-5.6) M/mm3 Hgb 13.0 (12.5-18.0) gm/dl Hct 40.6 L (42-50) % MCV 92.1 (78-100) fl MCH 29.5 (26-32) pg MCHC 32.0 (32-36) g/dl RDW 14.4 H (11.5-14.0) % Plt Count 109 L (150-450) K/mm3 MPV 11.4 H (6-9.5) fl Gran % 69.2 H (36.0-66.0) % Eos # (Auto) 0.22 (0-0.5) Absolute Lymphs (auto) 0.83 L (1.0-4.6) Absolute Monos (auto) 0.70 (0.0-1.3) Lymphocytes % 14.5 L (24.0-44.0) % Monocytes % 12.2 H (0.0-12.0) % Eosinophils % 3.8 (0.00-5.0) % Basophils % 0.3 (0.0-0.4) % Absolute Granulocytes 3.95 (1.4-6.9) Basophils # 0.02 (0-0.4) PT (8.83-12.87) SECONDS INR (0.8-3.0) APTT (24.1-36.1) SECONDS D-Dimer (215-500) ng/mL Sodium 139 (137-145) mmol/L Potassium 4.2 (3.5-5.1) mmol/L Chloride 105 (98-107) mmol/L Carbon Dioxide 23 (22-30) mmol/L Anion Gap 15.0 (5-15) MEQ/L BUN 17 (9-20) mg/dL Creatinine 1.82 H (0.66-1.25) mg/dL Estimated GFR 38.9 ML/MIN Glucose 191 H (74-106) mg/dL Calcium 9.3 (8.4-10.2) mg/dL Total Bilirubin 1.00 (0.2-1.3) mg/dL AST 25 (17-59) U/L ALT 20 (0-50) U/L Alkaline Phosphatase 135 H (38-126) U/L Troponin I (0.000-0.034) ng/mL Serum Total Protein 7.1 (6.3-8.2) g/dL Albumin 3.8 (3.5-5.0) g/dL - Progress Progress: improved Progress Note: 10/01/18 22:50 This is a 73-year-old white male with a history of peripheral neuropathy, arrhythmia, DVT, sleep apnea, diabetes type 2, arthritis, hernia, pacer, cardiac stents and kidney cancer with right kidney removed. The patient exhibited slurry speech and then had syncope prior to arrival on arrival patient had left arm weakness. Which resolved while at CT. Patient with a head CT impression no acute intracranial hemorrhage no new mass or obstructive hydrocephalus he Patient with a EKG remarkable for ventricular escape rhythm 60 beats per minute left axis deviation and complete left bundle branch block no pacer spikes were noted on the patient's EKG patient with troponin 0.042 Patient with d-dimer of 2072 patient with chemistry showing sodium 139 potassium 4.2 chloride 105 bicarbonate 23 BUN 17 creatinine 1.8 to glucose was 191 patient was essentially normal CBC with white blood cell 5.7 hemoglobin 13.0 hematocrit 40.6 Patient's chest x-ray showed mild increased interstitial lung markings Because of the patient's history of his pacemaker with absence of pacer spikes in his syncope I initially discussed the case with Dr. Rao on-call for Dr. Connor he felt that the patient should be discussed with the hospitalist I talked with Dr. Haskins hospitalist at [facility] he is accepted the patient for transfer. It is noted that the patient does have chronic renal failure patient has had a recent biopsy of his stomach 2 days ago also of his colon. Will transfer patient he is currently alert oriented x3 has full range of motion to all extremities blood pressure and heart rate are stable pulse oximetry is 98% 10/02/18 05:56 - Departure Departure Disposition: [facility]) Clinical Impression: increased troponin, increased ddimer Syncope Qualifiers: Syncope type: unspecified Qualified Code(s): R55 - Syncope and collapse Condition: Fair Critical Care Time: No Referrals: JASWINDER WHITNEY [Primary Care Provider] -
[2018-10-01 22:16] VITALS: O2SAT 98
[2018-10-01] MEDS ORDERED: Sodium Chloride 0.9% 1000 ML 1,000 ML ONE (22:16)
[2018-10-01 22:25] LABS: BASOPHIL % 0.3 % (0.0-0.4); Basophil (Absolute #) 0.02 (0-0.4); Eosinophil % 3.8 % (0.00-5.0); Eosinophil (Absolute #) 0.22 (0-0.5); Granulocyte Absolute (ANC) 3.95 (1.4-6.9); Granulocytes % 69.2 % (36.0-66.0); Hematocrit 40.6 % (42-50); Lymphocyte (Absolute #) 0.83 (1.0-4.6); Lymphocytes % 14.5 % (24.0-44.0); Mean Cell Volume 92.1 fl (78-100); Mean Corpuscular Hemoglobin 29.5 pg (26-32); Mean Platelet Volume 11.4 fl (6-9.5); Monocytes % 12.2 % (0.0-12.0); Platelet Count 109 K/mm3 (150-450); Red Blood Count 4.41 M/mm3 (4.1-5.6); Red Cell Distribution Width 14.4 % (11.5-14.0); White Blood Count 5.7 K/mm3 (4.0-10.5)
[2018-10-01 22:32] LABS: INR 1.2 (0.8-3.0)
[2018-10-01 22:35] LABS: PTT 29.1 SECONDS (24.1-36.1)
[2018-10-01 22:38] LABS: ALBUMIN 3.8 g/dL (3.5-5.0); Calcium 9.3 mg/dL (8.4-10.2); Creatinine 1 1.82 mg/dL (0.66-1.25); Potassium 4.2 mmol/L (3.5-5.1); Total Protein 7.1 g/dL (6.3-8.2)
[2018-10-01 23:08] VITALS: BP 149/75; PULSE 60
--- NOTE | 2018-10-02 08:55 | XRAY ---
Indication: Left-sided weakness and syncope. Multiple contiguous axial images obtained through the head without contrast. Comparison: None Age-appropriate global atrophy and mild periventricular degenerative micro-ischemia bilaterally. No acute intracranial hemorrhage, abnormal extra-axial fluid collection, or mass effect. Fourth ventricle is midline without hydrocephalus. Bony calvarium intact. Complete opacification of the visualized right maxillary sinus. Mild mucosal thickening of the remaining left maxillary, right ethmoid, and lesser degree left sphenoid sinuses. Mastoid air cells are clear. Impression: 1. Paranasal sinus disease. 2. Otherwise nonacute senile brain. Comment: Preliminary interpretation was made by [facility]. No discrepancy. CT DI 67.60
--- NOTE | 2018-10-02 08:57 | XRAY ---
Indication: Syncope. Comparison: June 16, 2017. Portable chest again demonstrates prominent interstitial lung markings with scattered mediastinal/hilar chunky calcified nodes. No focal infiltrate, consolidation, or large effusion. Heart is borderline enlarged again with left-sided pacemaker. Bony thorax intact again with mild degenerative changes and right shoulder surgery. Impression: Nonacute chest with chronic features.
== END 2018-10-02 00:35 | disposition short-term general hospital (02) ==
LOC: ED 21:34
DX: R74.8 Abnormal levels of other serum enzymes (principal); R79.89 Other specified abnormal findings of blood chemistry; R55 Syncope and collapse; G62.9 Polyneuropathy, unspecified; E11.9 Type 2 diabetes mellitus without complications; G47.30 Sleep apnea, unspecified; M19.90 Unspecified osteoarthritis, unspecified site; Z85.528 Personal history of other malignant neoplasm of kidney; N18.9 Chronic kidney disease, unspecified; E05.90 Thyrotoxicosis, unspecified without thyrotoxic crisis or storm; Z95.0 Presence of cardiac pacemaker
CPT/HCPCS: 36415; 70450; 71045; 80053; 82962; 84484; 85025; 85379; 85610; 85730; 93005; 93041; 96360; 96361; 99284; 99285

== ENCOUNTER 2018-10-19 14:27 | Observation (INO) | payer MEDICARE, OTHER ==
[2018-10-19] MEDS ORDERED: Sodium Chloride 0.9% 1000 ML 1,000 ML IV STA (15:13)
[2018-10-19] MEDS ORDERED: SUBLIMAZE 100 MCG/2 ML IV ONE (15:13)
--- NOTE | 2018-10-19 15:26 | ERPHSYRPT ---
- History of Present Illness Time Seen by Provider: 10/19/18 15:23 Historian: patient, family Exam Limitations: no limitations Patient Subjective Stated Complaint: TO ER C/O ABD PAIN. PT RECENTLY SCOPED BY DR STUBBS STATES NEEDS GALLBLADDER OUT BUT HAD A STROKE 10/01 ABD HAS TO SEE NEUROLOGIST AND DUMPSTER DRIVER FOR SURGERY CLEARANCE Triage Nursing Assessment: TO ER C/O LLQ PAIN ONSET APPROX 0800 THIS AM WORSENING AROUND NOON WITH ONSET OF WEAKNESS. PT ARRIVES PALE/W/D RESP EASY AND NON LABORED A@OX3. Physician History: 73-year-old male came to the emergency room with complaining of left lower quadrant abdominal pain. Patient has a history of recent CV stroke, gallstones , coronary artery disease, hypertension. Patient started having a left lower quadrant abdominal pain today morning which got worse after he ate oatmeal. Patient is also complaining of low-grade fever with chills. Patient has a very small bowel movement today. Patient is also feeling nauseous but denies vomiting. Timing/Duration: today Quality: cramping Abdominal Pain Onset Location: LLQ Pain Radiation: no radiation Severity of Pain-Max: moderate Severity of Pain-Current: moderate Modifying Factors: Improves With: nothing Associated Symptoms: diarrhea, loss of appetite, nausea, No vomiting Previous symptoms: same symptoms as today Allergies/Adverse Reactions: rivaroxaban [From Xarelto] Allergy (Severe, Verified 10/07/16 19:49) simvastatin [From Zocor] Allergy (Intermediate, Verified 10/07/16 19:49) penicillin G Allergy (Mild, Verified 10/07/16 19:49) Rash Sulfa (Sulfonamide Antibiotics) [Sulfa(Sulfonamide Antibiotics)] Allergy (Mild, Verified 10/07/16 19:49) Rash Home Medications: Apixaban [Eliquis 5 mg Tablet] 5 mg PO BID 04/23/16 [History] Nitroglycerin 0.4 mg Tablet [Nitrostat 0.4 MG Tablet] 0.4 mg SL UD [History] Nitroglycerin [Nitro-Dur] 1 each TD UD 04/23/16 [History] Omeprazole 20 MG [Prilosec 20 mg] 20 mg PO DAILY 04/23/16 [History] Pravastatin Sodium 40 mg PO HS 04/23/16 [History] Tramadol HCl 50 mg [Ultram 50 mg] 50 mg PO UD PRN 04/23/16 [History] Lactulose 10 gm PO DAILY PRN 06/17/17 [History] Magnesium Oxide [Magnesium] 400 mg PO DAILY 06/17/17 [History] Alogliptin Benzoate [Alogliptin] 12.5 mg PO DAILY 10/19/18 [History] Aspirin [Aspirin EC] 81 mg PO DAILY 10/19/18 [History] Benazepril HCl 10 mg [Lotensin 10 MG] 10 mg PO DAILY 10/19/18 [History] Furosemide [Lasix] 20 mg PO DAILY 10/19/18 [History] Insulin Glargine [Lantus Insulin] 55 unit SQ HS 10/19/18 [History] Insulin Lispro [Humalog] 5 unit SQ AC 10/19/18 [History] Tamsulosin HCl 0.4 mg [Flomax 0.4 MG] 0.4 mg PO DAILY 10/19/18 [History] Hx Tetanus, Diphtheria Vaccination/Date Given: Yes Hx Influenza Vaccination/Date Given: Yes Hx Pneumococcal Vaccination/Date Given: Yes - Review of Systems Constitutional: No Fever, No Chills Eyes: No Symptoms Ears, Nose, & Throat: No Symptoms Respiratory: No Cough, No Dyspnea Cardiac: No Chest Pain, No Edema, No Syncope Abdominal/Gastrointestinal: Abdominal Pain, Nausea, Diarrhea, No Vomiting Genitourinary Symptoms: No Dysuria Musculoskeletal: No Back Pain, No Neck Pain Skin: No Rash Neurological: No Dizziness, No Focal Weakness, No Sensory Changes Psychological: No Symptoms Endocrine: No Symptoms All Other Systems: Reviewed and Negative - Past Medical History Pertinent Past Medical History: Yes Neurological History: Stroke ENT History: No Pertinent History Cardiac History: Other Respiratory History: No Pertinent History Endocrine Medical History: Diabetes Type II, Hyperthyroidism Musculoskeletal History: Osteoarthritis GI Medical History: Gallbladder Disease, Hernia History: Renal Disease Psycho-Social History: No Pertinent History Male Reproductive Disorders: No Pertinent History Other Medical History: DIVERTICULITIS, KIDNEY CANCER WITH REMOVAL OF RIGHT KIDNEY APR 2016. BILATERAL ROTATOR CUFF REPAIRS, PACEMAKER - Past Surgical History Past Surgical History: Yes Neuro Surgical History: No Pertinent History Cardiac: Cardiac Stent, Pacemaker Respiratory: No Pertinent History Gastrointestinal: No Pertinent History Genitourinary: Kidney Surgery Musculoskeletal: Orthopedic Surgery Male Surgical History: No Pertinent History Other Surgical History: right kidney removal NOW BULDGING , mult paracentisis- last on october 04- took 3l of clear fluid- results not back - Social History Smoking Status: Never smoker Exposure to second hand smoke: No Drug Use: none Patient Lives Alone: No - Nursing Vital Signs Nursing Vital Signs: Initial Vital Signs Temperature 98.4 F 10/19/18 14:44 Pulse Rate 60 10/19/18 14:44 Respiratory Rate 16 10/19/18 14:44 Blood Pressure 171/84 10/19/18 14:44 O2 Sat by Pulse Oximetry 98 10/19/18 14:44 Pain Scale Pain Intensity 9 - Physical Exam General Appearance: no apparent distress, alert Eye Exam: PERRL/EOMI, eyes nml inspection Ears, Nose, Throat Exam: normal ENT inspection, pharynx normal, moist mucous membranes Neck Exam: normal inspection, non-tender, supple, full range of motion Respiratory Exam: normal breath sounds, lungs clear, No respiratory distress Cardiovascular Exam: regular rate/rhythm, normal heart sounds Gastrointestinal/Abdomen Exam: soft, tenderness, No distention, No mass, No rebound Back Exam: normal inspection, normal range of motion, No CVA tenderness, No vertebral tenderness Extremity Exam: normal inspection, normal range of motion, pelvis stable Neurologic Exam: alert, oriented x 3, cooperative, normal mood/affect, nml cerebellar function, sensation nml, No motor deficits Skin Exam: normal color, warm, dry SpO2: 98 - Course Nursing assessment & vital signs reviewed: Yes - CT Exams Abdomen/Pelvis CT Interpretation: Tele-radiologist Report (cholelithiasis, diverticulosis) Ordered Tests: Active Orders 24 hr Category Date Time Status EKG-ER Only STAT Care 10/19/18 15:13 Active ABDOMEN AND PELVIS W/0 CONTRAS [CT] Stat Exams 10/19/18 15:14 Taken AMYLASE Stat Lab 10/19/18 15:34 Completed CBC W DIFF Stat Lab 10/19/18 15:34 Completed CMP Stat Lab 10/19/18 15:34 Completed LIPASE Stat Lab 10/19/18 15:34 Completed Lactic Acid Stat Lab 10/19/18 15:13 Received TROPONIN Stat Lab 10/19/18 15:34 Completed Transfer Order Routine Transfer 10/19/18 Ordered Medication Summary Discontinued Medications Generic Name Dose Route Start Last Admin Trade Name Faye PRN Reason Stop Dose Admin Fentanyl Citrate 50 mcg 10/19/18 15:13 10/19/18 15:38 Sublimaze 100 Mcg/2 Ml IV 10/19/18 15:14 50 mcg STAT ONE Administration Fentanyl Citrate Confirm 10/19/18 15:32 Sublimaze 100 Mcg/2 Ml Administered 10/19/18 15:33 Dose 100 mcg .ROUTE .STK-MED ONE Sodium Chloride 1,000 mls @ 999 mls/hr 10/19/18 15:13 10/19/18 16:55 Sodium Chloride 0.9% 1000 Ml IV 10/19/18 16:13 Infused .Q1H1M STA Infusion Sodium Chloride Confirm 10/19/18 15:33 Sodium Chloride 0.9% 1000 Ml Administered 10/19/18 15:34 Dose 1,000 mls @ ud .ROUTE .STK-MED ONE Lab/Rad Data: Laboratory Result Diagrams 10/19/18 15:34 10/19/18 15:34 Laboratory Results 10/19/18 10/19/18 Range/Units 15:34 15:34 WBC 8.3 (4.0-10.5) K/mm3 RBC 4.74 (4.1-5.6) M/mm3 Hgb 13.9 (12.5-18.0) gm/dl Hct 42.9 (42-50) % MCV 90.5 (78-100) fl MCH 29.3 (26-32) pg MCHC 32.4 (32-36) g/dl RDW 14.0 (11.5-14.0) % Plt Count 131 L (150-450) K/mm3 MPV 11.7 H (6-9.5) fl Gran % 76.4 H (36.0-66.0) % Eos # (Auto) 0.25 (0-0.5) Absolute Lymphs (auto) 0.89 L (1.0-4.6) Absolute Monos (auto) 0.79 (0.0-1.3) Lymphocytes % 10.7 L (24.0-44.0) % Monocytes % 9.5 (0.0-12.0) % Eosinophils % 3.0 (0.00-5.0) % Basophils % 0.4 (0.0-0.4) % Absolute Granulocytes 6.33 (1.4-6.9) Basophils # 0.03 (0-0.4) Sodium 135 L (137-145) mmol/L Potassium 4.5 (3.5-5.1) mmol/L Chloride 100 (98-107) mmol/L Carbon Dioxide 24 (22-30) mmol/L Anion Gap 15.2 H (5-15) MEQ/L BUN 20 (9-20) mg/dL Creatinine 1.59 H (0.66-1.25) mg/dL Estimated GFR 45.5 ML/MIN Glucose 136 H (74-106) mg/dL Calcium 9.4 (8.4-10.2) mg/dL Total Bilirubin 1.20 (0.2-1.3) mg/dL AST 28 (17-59) U/L ALT 22 (0-50) U/L Alkaline Phosphatase 164 H (38-126) U/L Troponin I 0.043 H* (0.000-0.034) ng/mL Serum Total Protein 7.3 (6.3-8.2) g/dL Albumin 3.9 (3.5-5.0) g/dL Amylase 55 (30-110) U/L Lipase 10 L (23-300) U/L - Progress Progress: improved, pain not gone completely Discussed with .: Dayday Grady Will see patient in: hospital (observation) Counseled pt/family regarding: lab results, diagnosis, need for follow-up, rad results - Departure Departure Disposition: Observation Clinical Impression: Elevated troponin Diverticulitis large intestine Qualifiers: Diverticulitis bleeding: without bleeding Diverticulitis complication: with perforation and without abscess Qualified Code(s): K57.20 - Diverticulitis of large intestine with perforation and abscess without bleeding Condition: Fair Critical Care Time: Yes Critical Care Time(excluding separately billable procedures): 30-74 minutes Referrals: JASWINDER WHITNEY [Primary Care Provider] - Additional Instructions: Discharge/Care Plan YAELROME was seen on 10/19/18 in the Emergency Room. The patient was counseled regarding Diagnosis,Lab results, Imaging studies, need for follow up and when to return to the Emergency Room. Prescriptions given: Discharge Note I have spoken with the patient and/or caregivers. I have explained the patient' s condition, diagnosis and treatment plan based on the information available to me at this time. I have answered the patient's and/or caregiver's questions and addressed any concerns. The patient and/or caregivers have as good understanding of the patient's diagnosis, condition and treatment plan as can be expected at this point. The vital signs have been stable. The patient's condition is stable and appropriate for discharge from the emergency department. The patient will pursue further outpatient evaluation with the primary care physician or other designated or consulting physician as outlined in the discharge instructions. The patient and/or caregivers are agreeable to this plan of care and follow-up instructions have been explained in detail. The patient and/or caregivers have received these instruction. The patient/and or caregivers are aware that any significant change in condition or worsening of symptoms should prompt an immediate return to this or the closest emergency department or call 911.
[2018-10-19] MEDS ORDERED: SUBLIMAZE 100 MCG/2 ML ONE (15:32)
[2018-10-19] MEDS ORDERED: Sodium Chloride 0.9% 1000 ML 1,000 ML ONE ×2 (15:33→18:19)
[2018-10-19 15:37] LABS: BASOPHIL % 0.4 % (0.0-0.4); Basophil (Absolute #) 0.03 (0-0.4); Eosinophil (Absolute #) 0.25 (0-0.5); Granulocyte Absolute (ANC) 6.33 (1.4-6.9); Granulocytes % 76.4 % (36.0-66.0); Hematocrit 42.9 % (42-50); Hemoglobin 13.9 gm/dl (12.5-18.0); Lymphocyte (Absolute #) 0.89 (1.0-4.6); Lymphocytes % 10.7 % (24.0-44.0); Mean Cell Volume 90.5 fl (78-100); Mean Corpuscular Hemoglobin 29.3 pg (26-32); Mean Corpuscular Hgb Concent. 32.4 g/dl (32-36); Mean Platelet Volume 11.7 fl (6-9.5); Monocyte (Absolute #) 0.79 (0.0-1.3); Monocytes % 9.5 % (0.0-12.0); Platelet Count 131 K/mm3 (150-450); Red Blood Count 4.74 M/mm3 (4.1-5.6); White Blood Count 8.3 K/mm3 (4.0-10.5)
[2018-10-19 15:58] LABS: ALBUMIN 3.9 g/dL (3.5-5.0); ANION GAP 15.2 MEQ/L (5-15); BILIRUBIN,TOTAL 1.2 mg/dL (0.2-1.3); Calcium 9.4 mg/dL (8.4-10.2); Creatinine 1 1.59 mg/dL (0.66-1.25); Potassium 4.5 mmol/L (3.5-5.1); Total Protein 7.3 g/dL (6.3-8.2)
[2018-10-19 15:59] LABS: TROPONIN 0.043 ng/mL (0.000-0.034)
[2018-10-19] MEDS ORDERED: MORPHINE SULFATE 4 MG INJ IV PRN (18:10)
[2018-10-19] MEDS ORDERED: MORPHINE SULFATE 2 MG INJ IV PRN (18:10)
[2018-10-19] MEDS ORDERED: NovoLOG Insulin SQ PRN (18:10)
[2018-10-19] MEDS: Sodium Chloride 0.9% 1000 ML 1,000 ML IV SCH ×2 (18:22→18:35)
--- NOTE | 2018-10-19 20:37 | XRAY ---
Indication: Left lower quadrant pain. Multiple contiguous axial images obtained through the abdomen and pelvis without contrast as ordered. Comparison: September 17, 2018. Lung bases again demonstrates scattered fibrosis/scarring and right middle lobe calcified granuloma. No infiltrate or effusion. Heart remains borderline enlarged. Again small hiatal hernia. Noncontrasted stomach and bowel loops appear nonobstructed. Normal appendix. There is again diffuse colonic diverticulosis again greatest sigmoid colon. Majority of the sigmoid colon again demonstrates bowel wall thickening with stranding favoring diverticulitis. No free fluid/air. Stable right nephrectomy, tiny cholelithiasis, fatty liver, hepatic/splenic calcified granulomas, and fatty replaced pancreas. Stable right mid axillary line hernia fatty defect. Remaining liver, gallbladder, pancreas, spleen, adrenal glands, left kidney, left ureter, and bladder appear unremarkable for noncontrast exam. Stable mild aortoiliac calcifications without AAA. Osseous structures intact again with degenerative changes throughout the thoracolumbar spine. Impression: 1. Stable colonic diverticulosis, small hiatal hernia, right nephrectomy, fatty liver, gallstone, right flank fatty hernia, and evidence for old granulomatous disease. 2. No new or acute intra-abdominal/pelvic abnormalities on this noncontrast exam Comment: Preliminary interpretation was [facility] by [facility]. No critical discrepancy. CTDI 23.68
[2018-10-19] MEDS ORDERED: Nitrostat 0.4 MG Tablet SL PRN (21:03)
[2018-10-19] MEDS ORDERED: ULTRAM 50 MG PO PRN (21:05)
[2018-10-19] MEDS ORDERED: Lantus Insulin SQ SCH (22:00)
[2018-10-19] MEDS ORDERED: ZOCOR 20MG PO SCH (22:00)
[2018-10-19] MEDS: ELIQUIS 2.5 MG TABLET PO SCH (22:28)
[2018-10-19] MEDS: COREG 12.5 MG PO SCH (22:28)
[2018-10-20 05:56] LABS: BASOPHIL % 0.3 % (0.0-0.4); Basophil (Absolute #) 0.02 (0-0.4); Eosinophil % 4.5 % (0.00-5.0); Eosinophil (Absolute #) 0.28 (0-0.5); Granulocyte Absolute (ANC) 4.14 (1.4-6.9); Granulocytes % 67.2 % (36.0-66.0); Hematocrit 41.1 % (42-50); Lymphocyte (Absolute #) 0.95 (1.0-4.6); Lymphocytes % 15.4 % (24.0-44.0); Mean Cell Volume 91.5 fl (78-100); Mean Corpuscular Hgb Concent. 31.6 g/dl (32-36); Mean Platelet Volume 11.6 fl (6-9.5); Monocyte (Absolute #) 0.78 (0.0-1.3); Monocytes % 12.6 % (0.0-12.0); Platelet Count 125 K/mm3 (150-450); Red Blood Count 4.49 M/mm3 (4.1-5.6); White Blood Count 6.2 K/mm3 (4.0-10.5)
[2018-10-20 06:19] LABS: ALBUMIN 3.5 g/dL (3.5-5.0); ANION GAP 12.5 MEQ/L (5-15); BILIRUBIN,TOTAL 1.1 mg/dL (0.2-1.3); Calcium 9.1 mg/dL (8.4-10.2); Creatinine 1 1.69 mg/dL (0.66-1.25); Potassium 4.3 mmol/L (3.5-5.1); Total Protein 6.8 g/dL (6.3-8.2)
[2018-10-20] MEDS ORDERED: Enulose 10 GM/15 ML PO PRN (07:10)
[2018-10-20] MEDS ORDERED: NON-FORMULARY ITEM (Insulin Lispro 5 UNIT) SQ SCH (07:30)
[2018-10-20] MEDS ORDERED: Januvia 50 MG PO SCH (08:00)
[2018-10-20] MEDS ORDERED: NITRO-DUR 0.2 MG/HR TD SCH (08:00)
[2018-10-20] MEDS: NovoLOG Insulin SQ SCH ×2 (08:36→12:04)
[2018-10-20] MEDS: ELIQUIS 2.5 MG TABLET PO SCH (09:32)
[2018-10-20] MEDS: COREG 12.5 MG PO SCH (09:32)
[2018-10-20] MEDS ORDERED: LASIX 20 MG PO SCH (10:00)
[2018-10-20] MEDS ORDERED: NON-FORMULARY ITEM (Magnesium Oxide [Magnesium] 400 MG) PO SCH (10:00)
[2018-10-20] MEDS ORDERED: NON-FORMULARY ITEM (Alogliptin Benzoate [Alogliptin] 12.5 MG) PO SCH (10:00)
[2018-10-20] MEDS ORDERED: Flomax 0.4 MG PO SCH (10:00)
[2018-10-20] MEDS ORDERED: MAG-OX 400 PO SCH (10:00)
[2018-10-20] MEDS ORDERED: ECOTRIN 81 MG PO SCH (10:00)
[2018-10-20] MEDS ORDERED: Levofloxacin 500MG/100ML D5W 500 MG/100 ML BAG IV SCH (10:00)
[2018-10-20] MEDS ORDERED: Lotensin 10 MG PO SCH (10:00)
[2018-10-20 11:27] VITALS: BP 147/65; PULSE 61; O2SAT 94
[2018-10-20] MEDS ORDERED: LACTULOSE 20 GM/30ML UD CUP PO PRN (13:00)
--- NOTE | 2018-10-20 14:29 | PCM.SSS ---
History of Present Illness - Chief Complaint Chief Complaint: diverticulitis, elevated trop, cholelithiasis History of Present Illness: is a 73 year old male. - Review of Systems Constitutional: Fever, Chills, Fatigue (chronic) Respiratory: No Cough, No Short Of Breath Cardiac: Edema (no increase in edema,mild in lower extremeties), No Chest Pain, No Syncope Abdominal/Gastrointestinal: Abdominal Pain (states the LLQ pain was severe when he came to ER last night but has not had pain through the night or this morning. ), Other (no vomiting or diarrhea) Genitourinary Symptoms: Other (no dysuria,no flank pain.Has frequency - is on Lasix.) Neurological: Parasthesia (states his left arm was not able to feel touch when he had his stroke a month ago but is back to normal now.) Medications & Allergies Home Medications: Home Medication List Apixaban [Eliquis 5 mg Tablet] 5 mg PO BID 04/23/16 [History Confirmed 07/08] Nitroglycerin 0.4 mg Tablet [Nitrostat 0.4 MG Tablet] 0.4 mg SL UD [History Confirmed 10/19/18] Nitroglycerin [Nitro-Dur] 0.2 each TD DAILY 04/23/16 [History Confirmed 10/19/18 ] Omeprazole 20 MG [Prilosec 20 mg] 20 mg PO DAILY 04/23/16 [History Confirmed 07/08] Pravastatin Sodium 40 mg PO HS 04/23/16 [History Confirmed 10/19/18] Tramadol HCl 50 mg [Ultram 50 mg] 50 mg PO UD PRN 04/23/16 [History Confirmed 10/19/18] Lactulose 10 gm PO DAILY PRN 06/17/17 [History Confirmed 10/19/18] Magnesium Oxide [Magnesium] 400 mg PO DAILY 06/17/17 [History Confirmed 10/19/18 ] Carvedilol 12.5 mg [Coreg 12.5 mg] 12.5 mg PO BID tablet 06/19/17 [Rx Confirmed 10/19/18] Alogliptin Benzoate [Alogliptin] 12.5 mg PO DAILY 10/19/18 [History Confirmed ] Aspirin [Aspirin EC] 81 mg PO DAILY 10/19/18 [History Confirmed 10/19/18] Benazepril HCl 10 mg [Lotensin 10 MG] 10 mg PO DAILY 10/19/18 [History Confirmed 10/19/18] Furosemide [Lasix] 20 mg PO DAILY 10/19/18 [History Confirmed 10/19/18] Insulin Glargine [Lantus Insulin] 55 unit SQ HS 10/19/18 [History Confirmed 10/19/18] Insulin Lispro [Humalog] 5 unit SQ AC 10/19/18 [History Confirmed 10/19/18] Tamsulosin HCl 0.4 mg [Flomax 0.4 MG] 0.4 mg PO DAILY 10/19/18 [History Confirmed 10/19/18] Levofloxacin 750 mg PO DAILY #7 tablet 10/20/18 [Rx] Allergies/Adverse Reactions: Allergies Allergy/AdvReac Type Severity Reaction Status Date / Time rivaroxaban [From Xarelto] Allergy Severe Verified 10/07/16 19:49 penicillin G Allergy Mild Rash Verified 10/07/16 19:49 Sulfa (Sulfonamide Allergy Mild Rash Verified 10/07/16 19:49 Antibiotics) [Sulfa(Sulfonamide Antibiotics)] simvastatin [From Zocor] AdvReac Mild Verified 10/20/18 09:37 - Past Medical History Past Medical History: Yes Neurological History: Stroke, Other (CVA mid September this year ,patient states it caused numbness in left arm but the feeling has returned as normal.) ENT History: No Pertinent History Cardiac History: Arrhythmia, Coronary Artery Disease, Hypertension, Myocardial Infarction (ME) (Type 2 ME per Industrial Hygenist where patient is asymptomatic but Troponin levels go up when patient has other stress from illnesses.), Other Respiratory History: No Pertinent History Endocrine Medical History: Diabetes Type II Musculoskelatal History: Osteoarthritis GI Medical History: Diverticulitis, Gallbladder Disease, Hernia, Other History: Kidney Cancer, Renal Disease Pyscho-Social History: No Pertinent History Male Reproductive Disorders: No Pertinent History Comment: Hiatal Hernia with a fat bulge. - Past Surgical History Past Surgical History: Yes Neuro Surgical History: No Pertinent History Cardiac History: Cardiac Stent, Pacemaker Respiratory Surgery: No Pertinent History GI Surgical History: No Pertinent History Genitourinary Surgical Hx: Kidney Surgery Musculskeletal Surgical Hx: Orthopedic Surgery Male Surgical History: No Pertinent History Other Surgical History: Right knee arthroscopy 2016, Paracentesis 2017, right kidney removal 2018, Bilateral rotator cuff repairs - Social History Smoking Status: Never smoker Exposure to second hand smoke: No Alcohol: None Drug Use: none - Physical Exam Vital Signs: Vital Signs - 24 hr Temp Pulse Resp BP Pulse Ox 10/20/18 11:25 98.8 F 61 18 147/65 94 L 10/20/18 07:33 98.2 F 59 L 18 154/73 96 10/20/18 03:06 97.8 F 60 16 149/71 96 10/19/18 23:42 97.9 F 60 14 151/68 94 L 10/19/18 20:00 98.5 F 59 L 18 150/65 99 10/19/18 18:56 97 10/19/18 17:41 98 10/19/18 14:44 98.4 F 60 16 171/84 98 General Appearance: no apparent distress Neurologic Exam: alert, oriented x 3, cooperative, normal mood/affect Respiratory Exam: normal breath sounds, lungs clear Cardiovascular Exam: irregular, edema (trace ankles) Gastrointestinal/Abdomen Exam: soft, other (increased bowel sounds across low abdomen, no tenderness,no guarding,no rebound.) Rectal Exam: not done Results - Labs Lab/Micro Results: Accuchecks Date 10/20/18 Date 10/20/18 Time 11:30 Time 07:30 Accucheck Value: 140 Accucheck Value: 140 Lab Results-Last 24 Hours 10/19/18 10/19/18 10/19/18 Range/Units 15:13 15:34 15:34 WBC 8.3 (4.0-10.5) K/mm3 RBC 4.74 (4.1-5.6) M/mm3 Hgb 13.9 (12.5-18.0) gm/dl Hct 42.9 (42-50) % MCV 90.5 (78-100) fl MCH 29.3 (26-32) pg MCHC 32.4 (32-36) g/dl RDW 14.0 (11.5-14.0) % Plt Count 131 L (150-450) K/mm3 MPV 11.7 H (6-9.5) fl Gran % 76.4 H (36.0-66.0) % Eos # (Auto) 0.25 (0-0.5) Absolute Lymphs (auto) 0.89 L (1.0-4.6) Absolute Monos (auto) 0.79 (0.0-1.3) Lymphocytes % 10.7 L (24.0-44.0) % Monocytes % 9.5 (0.0-12.0) % Eosinophils % 3.0 (0.00-5.0) % Basophils % 0.4 (0.0-0.4) % Absolute Granulocytes 6.33 (1.4-6.9) Basophils # 0.03 (0-0.4) Sodium 135 L (137-145) mmol/L Potassium 4.5 (3.5-5.1) mmol/L Chloride 100 (98-107) mmol/L Carbon Dioxide 24 (22-30) mmol/L Anion Gap 15.2 H (5-15) MEQ/L BUN 20 (9-20) mg/dL Creatinine 1.59 H (0.66-1.25) mg/dL Estimated GFR 45.5 ML/MIN Glucose 136 H (74-106) mg/dL Lactic Acid 1.1 (0.4-2.0) Calcium 9.4 (8.4-10.2) mg/dL Total Bilirubin 1.20 (0.2-1.3) mg/dL AST 28 (17-59) U/L ALT 22 (0-50) U/L Alkaline Phosphatase 164 H (38-126) U/L Troponin I 0.043 H* (0.000-0.034) ng/mL Serum Total Protein 7.3 (6.3-8.2) g/dL Albumin 3.9 (3.5-5.0) g/dL Amylase 55 (30-110) U/L Lipase 10 L (23-300) U/L 10/20/18 10/20/18 10/20/18 Range/Units 05:20 05:20 05:20 WBC 6.2 (4.0-10.5) K/mm3 RBC 4.49 (4.1-5.6) M/mm3 Hgb 13.0 (12.5-18.0) gm/dl Hct 41.1 L (42-50) % MCV 91.5 (78-100) fl MCH 29.0 (26-32) pg MCHC 31.6 L (32-36) g/dl RDW 14.0 (11.5-14.0) % Plt Count 125 L (150-450) K/mm3 MPV 11.6 H (6-9.5) fl Gran % 67.2 H (36.0-66.0) % Eos # (Auto) 0.28 (0-0.5) Absolute Lymphs (auto) 0.95 L (1.0-4.6) Absolute Monos (auto) 0.78 (0.0-1.3) Lymphocytes % 15.4 L (24.0-44.0) % Monocytes % 12.6 H (0.0-12.0) % Eosinophils % 4.5 (0.00-5.0) % Basophils % 0.3 (0.0-0.4) % Absolute Granulocytes 4.14 (1.4-6.9) Basophils # 0.02 (0-0.4) Sodium 135 L (137-145) mmol/L Potassium 4.3 (3.5-5.1) mmol/L Chloride 101 (98-107) mmol/L Carbon Dioxide 26 (22-30) mmol/L Anion Gap 12.5 (5-15) MEQ/L BUN 20 (9-20) mg/dL Creatinine 1.69 H (0.66-1.25) mg/dL Estimated GFR 42.4 ML/MIN Glucose 148 H (74-106) mg/dL Lactic Acid (0.4-2.0) Calcium 9.1 (8.4-10.2) mg/dL Total Bilirubin 1.10 (0.2-1.3) mg/dL AST 21 (17-59) U/L ALT 19 (0-50) U/L Alkaline Phosphatase 143 H (38-126) U/L Troponin I 0.058 H* (0.000-0.034) ng/mL Serum Total Protein 6.8 (6.3-8.2) g/dL Albumin 3.5 (3.5-5.0) g/dL Amylase (30-110) U/L Lipase (23-300) U/L 10/20/18 10/20/18 Range/Units 09:20 12:00 WBC (4.0-10.5) K/mm3 RBC (4.1-5.6) M/mm3 Hgb (12.5-18.0) gm/dl Hct (42-50) % MCV (78-100) fl MCH (26-32) pg MCHC (32-36) g/dl RDW (11.5-14.0) % Plt Count (150-450) K/mm3 MPV (6-9.5) fl Gran % (36.0-66.0) % Eos # (Auto) (0-0.5) Absolute Lymphs (auto) (1.0-4.6) Absolute Monos (auto) (0.0-1.3) Lymphocytes % (24.0-44.0) % Monocytes % (0.0-12.0) % Eosinophils % (0.00-5.0) % Basophils % (0.0-0.4) % Absolute Granulocytes (1.4-6.9) Basophils # (0-0.4) Sodium (137-145) mmol/L Potassium (3.5-5.1) mmol/L Chloride (98-107) mmol/L Carbon Dioxide (22-30) mmol/L Anion Gap (5-15) MEQ/L BUN (9-20) mg/dL Creatinine (0.66-1.25) mg/dL Estimated GFR ML/MIN Glucose (74-106) mg/dL Lactic Acid (0.4-2.0) Calcium (8.4-10.2) mg/dL Total Bilirubin (0.2-1.3) mg/dL AST (17-59) U/L ALT (0-50) U/L Alkaline Phosphatase (38-126) U/L Troponin I 0.048 H* 0.045 H* (0.000-0.034) ng/mL Serum Total Protein (6.3-8.2) g/dL Albumin (3.5-5.0) g/dL Amylase (30-110) U/L Lipase (23-300) U/L Accuchecks Date 10/20/18 Date 10/20/18 Time 11:30 Time 07:30 Accucheck Value: 140 Accucheck Value: 140 - Radiology Impressions Radiology Exams & Impressions: Radiology Procedures Category Date Time Status ABDOMEN AND PELVIS W/0 CONTRAS [CT] Stat Exams 10/19/18 15:14 Completed - Other Procedures and Tests Respiratory Therapy 10/19/18 18:10 Oxygen Nasal Cannula 2 lpm 10/19/18 19:53 Respiratory Therapy Assessment DAILY 10/19/18 21:19 BiPap/CPAP ROUTINE Assessment/Plan (1) Diverticulitis large intestine Current Visit: Yes Status: Acute Qualifiers: Diverticulitis bleeding: without bleeding Diverticulitis complication: with perforation and without abscess Qualified Code(s): K57.20 - Diverticulitis of large intestine with perforation and abscess without bleeding Assessment & Plan: Rx Levaquin Code(s): K57.32 - DVTRCLI OF LG INT W/O PERFORATION OR ABSCESS W/O BLEEDING (2) Elevated troponin Current Visit: Yes Status: Acute Assessment & Plan: Discussed elevated Troponin that is coming down with Dr Irby,patient's Industrial Hygenist,who states patient has had this asymptomatic elevation of Troponin when he has a significant illness. He will follow up with patient next week or sooner if needed. Code(s): R74.8 - ABNORMAL LEVELS OF OTHER SERUM ENZYMES Hospital Summary - Hospital Course Hospital Course: Patient presented to ER last evening with severe LLQ pain. He is known to have diverticular dz and gall stones and is anticipating gall bladder surgery for this after Cardiac and Neuro clearance. He is followed by Industrial Hygenist Dr Irby for HTN,CAD.Arrythmia on anticoagulants. He had a recent CVA last month while off anticoagulants for scope. He is pain free after IV Levaquin and tolerating a normal diet today and is anxious to go home. He has had elevated troponin without any cardiac symptoms and the level is coming down I discussed this with Dr Irby who states the patient has this troponion elevation when he has severe illnesses,called Type 2 ME ( NOT a non S-T elevation ME). - Vitals & Intake/Output Vital Signs: Vital Signs Temperature 98.8 F 10/20/18 11:25 Pulse Rate 61 10/20/18 11:25 Respiratory Rate 18 10/20/18 11:25 Blood Pressure 147/65 10/20/18 11:25 O2 Sat by Pulse Oximetry 94 L 10/20/18 11:25 Intake & Output: Intake & Output 06/01/19 10/19/18 10/20/18 10/21/18 11:59 11:59 11:59 11:59 Intake Total 1300 220 Output Total 300 Balance 1000 220 Weight 124.7 kg - Lab Result Diagrams: 10/20/18 05:20 10/20/18 05:20 Lab Results-Last 24 Hrs: Accuchecks Date 10/20/18 Date 10/20/18 Time 11:30 Time 07:30 Accucheck Value: 140 Accucheck Value: 140 Lab Results-Last 24 Hours 10/19/18 10/19/18 10/19/18 Range/Units 15:13 15:34 15:34 WBC 8.3 (4.0-10.5) K/mm3 RBC 4.74 (4.1-5.6) M/mm3 Hgb 13.9 (12.5-18.0) gm/dl Hct 42.9 (42-50) % MCV 90.5 (78-100) fl MCH 29.3 (26-32) pg MCHC 32.4 (32-36) g/dl RDW 14.0 (11.5-14.0) % Plt Count 131 L (150-450) K/mm3 MPV 11.7 H (6-9.5) fl Gran % 76.4 H (36.0-66.0) % Eos # (Auto) 0.25 (0-0.5) Absolute Lymphs (auto) 0.89 L (1.0-4.6) Absolute Monos (auto) 0.79 (0.0-1.3) Lymphocytes % 10.7 L (24.0-44.0) % Monocytes % 9.5 (0.0-12.0) % Eosinophils % 3.0 (0.00-5.0) % Basophils % 0.4 (0.0-0.4) % Absolute Granulocytes 6.33 (1.4-6.9) Basophils # 0.03 (0-0.4) Sodium 135 L (137-145) mmol/L Potassium 4.5 (3.5-5.1) mmol/L Chloride 100 (98-107) mmol/L Carbon Dioxide 24 (22-30) mmol/L Anion Gap 15.2 H (5-15) MEQ/L BUN 20 (9-20) mg/dL Creatinine 1.59 H (0.66-1.25) mg/dL Estimated GFR 45.5 ML/MIN Glucose 136 H (74-106) mg/dL Lactic Acid 1.1 (0.4-2.0) Calcium 9.4 (8.4-10.2) mg/dL Total Bilirubin 1.20 (0.2-1.3) mg/dL AST 28 (17-59) U/L ALT 22 (0-50) U/L Alkaline Phosphatase 164 H (38-126) U/L Troponin I 0.043 H* (0.000-0.034) ng/mL Serum Total Protein 7.3 (6.3-8.2) g/dL Albumin 3.9 (3.5-5.0) g/dL Amylase 55 (30-110) U/L Lipase 10 L (23-300) U/L 10/20/18 10/20/18 10/20/18 Range/Units 05:20 05:20 05:20 WBC 6.2 (4.0-10.5) K/mm3 RBC 4.49 (4.1-5.6) M/mm3 Hgb 13.0 (12.5-18.0) gm/dl Hct 41.1 L (42-50) % MCV 91.5 (78-100) fl MCH 29.0 (26-32) pg MCHC 31.6 L (32-36) g/dl RDW 14.0 (11.5-14.0) % Plt Count 125 L (150-450) K/mm3 MPV 11.6 H (6-9.5) fl Gran % 67.2 H (36.0-66.0) % Eos # (Auto) 0.28 (0-0.5) Absolute Lymphs (auto) 0.95 L (1.0-4.6) Absolute Monos (auto) 0.78 (0.0-1.3) Lymphocytes % 15.4 L (24.0-44.0) % Monocytes % 12.6 H (0.0-12.0) % Eosinophils % 4.5 (0.00-5.0) % Basophils % 0.3 (0.0-0.4) % Absolute Granulocytes 4.14 (1.4-6.9) Basophils # 0.02 (0-0.4) Sodium 135 L (137-145) mmol/L Potassium 4.3 (3.5-5.1) mmol/L Chloride 101 (98-107) mmol/L Carbon Dioxide 26 (22-30) mmol/L Anion Gap 12.5 (5-15) MEQ/L BUN 20 (9-20) mg/dL Creatinine 1.69 H (0.66-1.25) mg/dL Estimated GFR 42.4 ML/MIN Glucose 148 H (74-106) mg/dL Lactic Acid (0.4-2.0) Calcium 9.1 (8.4-10.2) mg/dL Total Bilirubin 1.10 (0.2-1.3) mg/dL AST 21 (17-59) U/L ALT 19 (0-50) U/L Alkaline Phosphatase 143 H (38-126) U/L Troponin I 0.058 H* (0.000-0.034) ng/mL Serum Total Protein 6.8 (6.3-8.2) g/dL Albumin 3.5 (3.5-5.0) g/dL Amylase (30-110) U/L Lipase (23-300) U/L 10/20/18 10/20/18 Range/Units 09:20 12:00 WBC (4.0-10.5) K/mm3 RBC (4.1-5.6) M/mm3 Hgb (12.5-18.0) gm/dl Hct (42-50) % MCV (78-100) fl MCH (26-32) pg MCHC (32-36) g/dl RDW (11.5-14.0) % Plt Count (150-450) K/mm3 MPV (6-9.5) fl Gran % (36.0-66.0) % Eos # (Auto) (0-0.5) Absolute Lymphs (auto) (1.0-4.6) Absolute Monos (auto) (0.0-1.3) Lymphocytes % (24.0-44.0) % Monocytes % (0.0-12.0) % Eosinophils % (0.00-5.0) % Basophils % (0.0-0.4) % Absolute Granulocytes (1.4-6.9) Basophils # (0-0.4) Sodium (137-145) mmol/L Potassium (3.5-5.1) mmol/L Chloride (98-107) mmol/L Carbon Dioxide (22-30) mmol/L Anion Gap (5-15) MEQ/L BUN (9-20) mg/dL Creatinine (0.66-1.25) mg/dL Estimated GFR ML/MIN Glucose (74-106) mg/dL Lactic Acid (0.4-2.0) Calcium (8.4-10.2) mg/dL Total Bilirubin (0.2-1.3) mg/dL AST (17-59) U/L ALT (0-50) U/L Alkaline Phosphatase (38-126) U/L Troponin I 0.048 H* 0.045 H* (0.000-0.034) ng/mL Serum Total Protein (6.3-8.2) g/dL Albumin (3.5-5.0) g/dL Amylase (30-110) U/L Lipase (23-300) U/L Micro Results-Entire Visit: Accuchecks Date 10/20/18 Date 10/20/18 Time 11:30 Time 07:30 Accucheck Value: 140 Accucheck Value: 140 - Radiology Exams Ordered Rad Exams-Entire Visit: Radiology Procedures Category Date Time Status ABDOMEN AND PELVIS W/0 CONTRAS [CT] Stat Exams 10/19/18 15:14 Completed - Procedures and Test Procedures and Tests throughout Hospitalization: Therapy Orders & Screens 10/19/18 18:10 Oxygen Nasal Cannula 2 lpm Comment: 10/19/18 19:53 Respiratory Therapy Assessment DAILY Comment: Diagnosis: diverticulitis, elevated troponin, cholelithiasis 10/19/18 21:19 BiPap/CPAP ROUTINE Comment: Diagnosis: diverticulitis, elevated trop, cholelithiasis 10/20/18 08:54 EKG ROUTINE Comment: Diagnosis: diverticulitis, elevated trop, cholelithiasis - Discharge Disposition: Home, Self-Care Condition: Good Prescriptions: No Action Omeprazole 20 MG [Prilosec 20 mg] 20 mg PO DAILY Tramadol HCl 50 mg [Ultram 50 mg] 50 mg PO UD PRN PRN Reason: Pain Pravastatin Sodium 40 mg PO HS Nitroglycerin [Nitro-Dur] 0.2 each TD DAILY Apixaban [Eliquis 5 mg Tablet] 5 mg PO BID Nitroglycerin 0.4 mg Tablet [Nitrostat 0.4 MG Tablet] 0.4 mg SL UD Magnesium Oxide [Magnesium] 400 mg PO DAILY Lactulose 10 gm PO DAILY PRN PRN Reason: Constipation Carvedilol 12.5 mg [Coreg 12.5 mg] 12.5 mg PO BID tablet Tamsulosin HCl 0.4 mg [Flomax 0.4 MG] 0.4 mg PO DAILY Alogliptin Benzoate [Alogliptin] 12.5 mg PO DAILY Insulin Lispro [Humalog] 5 unit SQ AC Benazepril HCl 10 mg [Lotensin 10 MG] 10 mg PO DAILY Insulin Glargine [Lantus Insulin] 55 unit SQ HS Furosemide [Lasix] 20 mg PO DAILY Aspirin [Aspirin EC] 81 mg PO DAILY Instructions: Diverticulitis (DC) Follow up with: SHANTAL TENORIO [ACTIVE STAFF] - 10/28/18 9:00 am ROBERT IRBY [CONSULTING PHYSICIAN] - 10/27/18 1:15 pm Forms: Discharge Instructions
== END 2018-10-20 15:10 | disposition home or self-care (01) ==
LOC: ED 14:27 → MED SURG 18:09
PROVIDERS: ADMIT Family Medicine; ATTEND Family Medicine
DX: K57.32 Diverticulitis of large intestine without perforation or abscess without bleeding (principal); R74.8 Abnormal levels of other serum enzymes; I10 Essential (primary) hypertension; E11.9 Type 2 diabetes mellitus without complications; I25.10 Atherosclerotic heart disease of native coronary artery without angina pectoris; I49.9 Cardiac arrhythmia, unspecified; Z86.73 Personal history of transient ischemic attack (TIA), and cerebral infarction without residual deficits; Z79.01 Long term (current) use of anticoagulants; Z79.899 Other long term (current) drug therapy; I25.2 Old myocardial infarction; Z85.528 Personal history of other malignant neoplasm of kidney
CPT/HCPCS: 36415; 74176; 80053; 82150; 82962; 83036; 83605; 83690; 84484; 85025; 93005; 94762; 96360; 96374; 99285; 99291; G0378; J1956; J3010; A9270-GY

== ENCOUNTER 2018-10-23 10:42 | Emergency (ER) | payer MEDICARE, OTHER ==
--- NOTE | 2018-10-23 11:39 | ERPHSYRPT ---
- History of Present Illness Time Seen by Provider: 10/23/18 11:35 Historian: patient Exam Limitations: no limitations Patient Subjective Stated Complaint: pt reports he was here last weekend and stayed overnight for a flare up of his diverticulitis and an elevated cardiac enzyme. states he stayed overnight and was feeling better but today his pain came back and he is concerned. Triage Nursing Assessment: pt is aox3, pupils perrl, afebrile, resps easy and non labored, lung sounds are clear bilat, radial pulses strong and equal, cap refill < 3 seconds, abd soft, tender to the LLQ, pain is non radiating, bowel sounds present and normoactive x4. pt skin pink warm dry. Physician History: 73-year-old white male arrives with complaint left lower quadrant abdominal pain symptoms since 2 AM he patient has not had any vomiting he states he has been constipated patient was seen here for the same 4 days ago and was treated for diverticulitis Past medical history includes CVA, diabetes type 2, hypothyroidism, arthritis right is, gallbladder disease, hernia, renal disease, diverticulitis, kidney cancer, right kidney removed, bilateral rotator cuff pacemaker past surgical history includes cardiac stent, pacemaker, right kidney removed, Timing/Duration: today (2 AM) Activities at Onset: none Quality: aching Abdominal Pain Onset Location: LLQ Pain Radiation: no radiation Severity of Pain-Max: moderate Severity of Pain-Current: mild Modifying Factors: Improves With: nothing Associated Symptoms: other (constipation), No back, No chest pain, No diaphoresis, No diarrhea, No fever/chills, No fatigue, No headache, No heartburn , No loss of appetite, No nausea, No neck pain, No rash, No shortness of breath , No syncope, No testicular pain, No vomiting, No weakness Previous symptoms: same symptoms as today, recently seen (seen 4 days ago for diverticulitis placed on observation released the next day) Allergies/Adverse Reactions: rivaroxaban [From Xarelto] Allergy (Severe, Verified 10/23/18 11:30) penicillin G Allergy (Mild, Verified 10/23/18 11:30) Rash Sulfa (Sulfonamide Antibiotics) [Sulfa(Sulfonamide Antibiotics)] Allergy (Mild, Verified 10/23/18 11:30) Rash simvastatin [From Zocor] Adverse Reaction (Mild, Verified 10/23/18 11:30) liver enzymes increase. Home Medications: Apixaban [Eliquis 5 mg Tablet] 5 mg PO BID 04/23/16 [History] Nitroglycerin 0.4 mg Tablet [Nitrostat 0.4 MG Tablet] 0.4 mg SL UD [History] Nitroglycerin [Nitro-Dur] 0.2 each TD DAILY 04/23/16 [History] Omeprazole 20 MG [Prilosec 20 mg] 20 mg PO DAILY 04/23/16 [History] Pravastatin Sodium 40 mg PO HS 04/23/16 [History] Tramadol HCl 50 mg [Ultram 50 mg] 50 mg PO UD PRN 04/23/16 [History] Lactulose 10 gm PO DAILY PRN 06/17/17 [History] Magnesium Oxide [Magnesium] 400 mg PO DAILY 06/17/17 [History] Alogliptin Benzoate [Alogliptin] 12.5 mg PO DAILY 10/19/18 [History] Aspirin [Aspirin EC] 81 mg PO DAILY 10/19/18 [History] Benazepril HCl 10 mg [Lotensin 10 MG] 10 mg PO DAILY 10/19/18 [History] Furosemide [Lasix] 20 mg PO DAILY 10/19/18 [History] Insulin Glargine [Lantus Insulin] 55 unit SQ HS 10/19/18 [History] Insulin Lispro [Humalog] 5 unit SQ AC 10/19/18 [History] Tamsulosin HCl 0.4 mg [Flomax 0.4 MG] 0.4 mg PO DAILY 10/19/18 [History] Hx Tetanus, Diphtheria Vaccination/Date Given: Yes Hx Influenza Vaccination/Date Given: Yes Hx Pneumococcal Vaccination/Date Given: Yes Immunizations Up to Date: Yes - Review of Systems Constitutional: No Fever, No Chills Eyes: No Symptoms Ears, Nose, & Throat: No Symptoms Respiratory: No Cough, No Dyspnea Cardiac: No Chest Pain, No Edema, No Syncope Abdominal/Gastrointestinal: Abdominal Pain (left lower quadrant abdominal pain) , Constipation, No Nausea, No Vomiting, No Diarrhea Genitourinary Symptoms: No Dysuria Musculoskeletal: No Back Pain, No Neck Pain Skin: No Rash Neurological: No Dizziness, No Focal Weakness, No Sensory Changes Psychological: No Symptoms Endocrine: No Symptoms All Other Systems: Reviewed and Negative - Past Medical History Pertinent Past Medical History: Yes Neurological History: Stroke, Other ENT History: No Pertinent History Cardiac History: Arrhythmia, Coronary Artery Disease, Hypertension, Myocardial Infarction ([place]), Other Respiratory History: No Pertinent History Endocrine Medical History: Diabetes Type II Musculoskeletal History: Osteoarthritis GI Medical History: Diverticulitis, Gallbladder Disease, Hernia, Other History: Kidney Cancer, Renal Disease Psycho-Social History: No Pertinent History Male Reproductive Disorders: No Pertinent History Other Medical History: Hiatal Hernia with a fat bulge. - Past Surgical History Past Surgical History: Yes Neuro Surgical History: No Pertinent History Cardiac: Cardiac Stent, Pacemaker Respiratory: No Pertinent History Gastrointestinal: No Pertinent History Genitourinary: Kidney Surgery Musculoskeletal: Orthopedic Surgery Male Surgical History: No Pertinent History Other Surgical History: Right knee arthroscopy 2016, Paracentesis 2017, right kidney removal 2018, Bilateral rotator cuff repairs - Social History Smoking Status: Never smoker Exposure to second hand smoke: No Drug Use: none Patient Lives Alone: No - Nursing Vital Signs Nursing Vital Signs: Initial Vital Signs Temperature 98.7 F 10/23/18 11:18 Pulse Rate 60 10/23/18 11:18 Respiratory Rate 20 10/23/18 11:18 Blood Pressure 134/64 10/23/18 11:18 O2 Sat by Pulse Oximetry 98 10/23/18 11:18 Pain Scale Pain Intensity 8 - Physical Exam General Appearance: mild distress, alert Eye Exam: PERRL/EOMI, eyes nml inspection Ears, Nose, Throat Exam: normal ENT inspection, pharynx normal, moist mucous membranes Neck Exam: normal inspection, non-tender, supple, full range of motion Respiratory Exam: normal breath sounds, lungs clear, No respiratory distress Cardiovascular Exam: regular rate/rhythm, normal heart sounds, capillary refill <2 sec Gastrointestinal/Abdomen Exam: soft, No tenderness, No mass Back Exam: normal inspection, normal range of motion, No CVA tenderness, No vertebral tenderness Extremity Exam: normal inspection, normal range of motion, pelvis stable Neurologic Exam: alert, oriented x 3, cooperative, compression molding machine tender II-XII nml as tested, normal mood/affect, nml cerebellar function, sensation nml, No motor deficits Skin Exam: normal color, warm, dry SpO2 Interpretation: normal (98%) SpO2: 98 - Course Nursing assessment & vital signs reviewed: Yes EKG Interpreted by Me: RATE (60 bpm), Other (EKGpaced rhythm 60 beats per minute ) - Radiology Exams Abdomen X-ray Interpretation: Discussed w/ radiologist (obstructive acute abdomen series /impression: Nonacute nonobstructive abdomen and stable nonacute chest with chronic features) Ordered Tests: Active Orders 24 hr Category Date Time Status EKG-ER Only STAT Care 10/23/18 11:34 Active IV Insertion STAT Care 10/23/18 11:33 Active OBSTR/ACUTE ABDOMEN SERIES Stat Exams 10/23/18 11:34 Completed AMYLASE Stat Lab 10/23/18 11:50 Completed CBC W DIFF Stat Lab 10/23/18 11:50 Completed CMP Stat Lab 10/23/18 11:50 Completed LIPASE Stat Lab 10/23/18 11:50 Completed Occult Blood, Other Screening Stat Lab 10/23/18 13:28 Ordered TROPONIN Q3H Lab 10/23/18 11:50 Completed TROPONIN Q3H Lab 10/23/18 14:45 Ordered TROPONIN Q3H Lab 10/23/18 17:45 Ordered TROPONIN Q3H Lab 10/23/18 20:45 Ordered TROPONIN Q3H Lab 10/23/18 23:45 Ordered UA W/RFX UR CULTURE Stat Lab 10/23/18 13:39 Completed Medication Summary Discontinued Medications Generic Name Dose Route Start Last Admin Trade Name Freq PRN Reason Stop Dose Admin Morphine Sulfate 4 mg 10/23/18 12:21 10/23/18 12:27 Morphine Sulfate 4 Mg Inj IV 10/23/18 12:22 4 mg STAT ONE Administration Morphine Sulfate Confirm 10/23/18 12:24 Morphine Sulfate 4 Mg Inj Administered 10/23/18 12:25 Dose 4 mg .ROUTE .STK-MED ONE Lab/Rad Data: Laboratory Result Diagrams 10/23/18 11:50 10/23/18 11:50 Laboratory Results 10/23/18 10/23/18 10/23/18 Range/Units 13:39 11:50 11:50 WBC (4.0-10.5) K/mm3 RBC (4.1-5.6) M/mm3 Hgb (12.5-18.0) gm/dl Hct (42-50) % MCV (78-100) fl MCH (26-32) pg MCHC (32-36) g/dl RDW (11.5-14.0) % Plt Count (150-450) K/mm3 MPV (6-9.5) fl Gran % (36.0-66.0) % Eos # (Auto) (0-0.5) Absolute Lymphs (auto) (1.0-4.6) Absolute Monos (auto) (0.0-1.3) Lymphocytes % (24.0-44.0) % Monocytes % (0.0-12.0) % Eosinophils % (0.00-5.0) % Basophils % (0.0-0.4) % Absolute Granulocytes (1.4-6.9) Basophils # (0-0.4) Sodium 136 L (137-145) mmol/L Potassium 4.4 (3.5-5.1) mmol/L Chloride 101 (98-107) mmol/L Carbon Dioxide 24 (22-30) mmol/L Anion Gap 14.3 (5-15) MEQ/L BUN 24 H (9-20) mg/dL Creatinine 1.99 H (0.66-1.25) mg/dL Estimated GFR 35.1 ML/MIN Glucose 134 H (74-106) mg/dL Calcium 9.4 (8.4-10.2) mg/dL Total Bilirubin 1.10 (0.2-1.3) mg/dL AST 26 (17-59) U/L ALT 19 (0-50) U/L Alkaline Phosphatase 156 H (38-126) U/L Troponin I 0.044 H* (0.000-0.034) ng/mL Serum Total Protein 7.3 (6.3-8.2) g/dL Albumin 3.8 (3.5-5.0) g/dL Amylase 50 (30-110) U/L Lipase < 10 L (23-300) U/L Urine Color STRAW (YELLOW) Urine Appearance CLEAR (CLEAR) Urine pH 6.0 (5-6) Ur Specific [place] 1.003 (1.005-1.025) Urine Protein NEGATIVE (Negative) Urine Ketones NEGATIVE (NEGATIVE) Urine Blood NEGATIVE (0-5) Antonio/ul Urine Nitrite NEGATIVE (NEGATIVE) Urine Bilirubin NEGATIVE (NEGATIVE) Urine Urobilinogen NEGATIVE (0-1) mg/dL Ur Leukocyte Esterase NEGATIVE (NEGATIVE) Urine WBC (Auto) NONE (0-5) /HPF Urine RBC (Auto) NONE (0-2) /HPF U Epithel Cells (Auto) NONE (FEW) /HPF Urine Bacteria (Auto) NONE (NEGATIVE) /HPF Urine Culture Reflexed NO (NO) Urine Glucose NEGATIVE (NEGATIVE) mg/dL 10/23/18 Range/Units 11:50 WBC 8.7 (4.0-10.5) K/mm3 RBC 4.63 (4.1-5.6) M/mm3 Hgb 13.5 (12.5-18.0) gm/dl Hct 41.7 L (42-50) % MCV 90.1 (78-100) fl MCH 29.2 (26-32) pg MCHC 32.4 (32-36) g/dl RDW 13.9 (11.5-14.0) % Plt Count 132 L (150-450) K/mm3 MPV 11.0 H (6-9.5) fl Gran % 75.8 H (36.0-66.0) % Eos # (Auto) 0.22 (0-0.5) Absolute Lymphs (auto) 1.00 (1.0-4.6) Absolute Monos (auto) 0.87 (0.0-1.3) Lymphocytes % 11.5 L (24.0-44.0) % Monocytes % 10.0 (0.0-12.0) % Eosinophils % 2.5 (0.00-5.0) % Basophils % 0.2 (0.0-0.4) % Absolute Granulocytes 6.56 (1.4-6.9) Basophils # 0.02 (0-0.4) Sodium (137-145) mmol/L Potassium (3.5-5.1) mmol/L Chloride (98-107) mmol/L Carbon Dioxide (22-30) mmol/L Anion Gap (5-15) MEQ/L BUN (9-20) mg/dL Creatinine (0.66-1.25) mg/dL Estimated GFR ML/MIN Glucose (74-106) mg/dL Calcium (8.4-10.2) mg/dL Total Bilirubin (0.2-1.3) mg/dL AST (17-59) U/L ALT (0-50) U/L Alkaline Phosphatase (38-126) U/L Troponin I (0.000-0.034) ng/mL Serum Total Protein (6.3-8.2) g/dL Albumin (3.5-5.0) g/dL Amylase (30-110) U/L Lipase (23-300) U/L Urine Color (YELLOW) Urine Appearance (CLEAR) Urine pH (5-6) Ur Specific [place] (1.005-1.025) Urine Protein (Negative) Urine Ketones (NEGATIVE) Urine Blood (0-5) Antonio/ul Urine Nitrite (NEGATIVE) Urine Bilirubin (NEGATIVE) Urine Urobilinogen (0-1) mg/dL Ur Leukocyte Esterase (NEGATIVE) Urine WBC (Auto) (0-5) /HPF Urine RBC (Auto) (0-2) /HPF U Epithel Cells (Auto) (FEW) /HPF Urine Bacteria (Auto) (NEGATIVE) /HPF Urine Culture Reflexed (NO) Urine Glucose (NEGATIVE) mg/dL - Progress Progress: improved Progress Note: 10/23/18 14:29 Patient is feeling better after 4 mg of morphine IV. Acute abdominal series nonacute nonobstructive abdomen and stable nonacute chest with chronic features Patient with the EKG showing a paced rhythm 60 beats per minute Patient's troponin 0.044 patient's troponin was 0.045 at last admission several days ago Patient's white count 8.7 hemoglobin 13.5 hematocrit 41.7 platelets 132 patient' s chemistry sodium 136 potassium 4.4 chloride 101 bicarbonate 24 BUN 24 creatinine 1.9 glucose 134 amylase is 50 lipase less than 10 Patient's vitals have been stable Patient's urinalysis unremarkable Patient feeling better wants to go home. Will place patient on MiraLAX one scoop in 8 ounces of water orally daily Dulcolax suppositories when necessary no stool in 48 hours. Patient has tramadol at home. Patient is on Levaquin at home. - Departure Departure Disposition: Home Clinical Impression: Left lower quadrant pain Diverticulitis large intestine Qualifiers: Diverticulitis bleeding: without bleeding Diverticulitis complication: without perforation or abscess Qualified Code(s): K57.32 - Diverticulitis of large intestine without perforation or abscess without bleeding Condition: Fair Critical Care Time: No Referrals: JASWINDER WHITNEY [Primary Care Provider] - Additional Instructions: Return home. Plenty of fluids. Clear fluids only 24-48 hours if abdominal pain. MiraLAX 1 scoop in 8 ounces of water orally daily. Dulcolax suppositories one rectally when necessary no stool in 48 hours. Continue Levaquin as prescribed by your family . Followup with your family . Return for acute distress or for severe symptoms or for any problems.
[2018-10-23 11:57] LABS: BASOPHIL % 0.2 % (0.0-0.4); Basophil (Absolute #) 0.02 (0-0.4); Eosinophil % 2.5 % (0.00-5.0); Eosinophil (Absolute #) 0.22 (0-0.5); Granulocyte Absolute (ANC) 6.56 (1.4-6.9); Granulocytes % 75.8 % (36.0-66.0); Hematocrit 41.7 % (42-50); Hemoglobin 13.5 gm/dl (12.5-18.0); Lymphocytes % 11.5 % (24.0-44.0); Mean Cell Volume 90.1 fl (78-100); Mean Corpuscular Hemoglobin 29.2 pg (26-32); Mean Corpuscular Hgb Concent. 32.4 g/dl (32-36); Monocyte (Absolute #) 0.87 (0.0-1.3); Platelet Count 132 K/mm3 (150-450); Red Blood Count 4.63 M/mm3 (4.1-5.6); Red Cell Distribution Width 13.9 % (11.5-14.0); White Blood Count 8.7 K/mm3 (4.0-10.5)
[2018-10-23 12:09] LABS: ALBUMIN 3.8 g/dL (3.5-5.0); ALKALINE PHOSPHATASE 156 U/L (38-126); AMYLASE 50 U/L (30-110); ANION GAP 14.3 MEQ/L (5-15); BLOOD UREA NITROGEN 24 mg/dL (9-20); CHLORIDE 101 mmol/L (98-107); Calcium 9.4 mg/dL (8.4-10.2); Carbon Dioxide 24 mmol/L (22-30); Creatinine 1 1.99 mg/dL (0.66-1.25); Glucose 134 mg/dL (74-106); Potassium 4.4 mmol/L (3.5-5.1); SGOT/AST 26 U/L (17-59); SGPT/ALT 19 U/L (0-50); SODIUM 136 mmol/L (137-145); Total Protein 7.3 g/dL (6.3-8.2)
[2018-10-23 12:11] LABS: LIPASE < 10 U/L (23-300)
[2018-10-23] MEDS ORDERED: MORPHINE SULFATE 4 MG INJ IV ONE (12:21)
[2018-10-23] MEDS ORDERED: MORPHINE SULFATE 4 MG INJ ONE (12:24)
--- NOTE | 2018-10-23 12:27 | XRAY ---
Indication: Left lower quadrant pain. Comparison: Portable chest October 01, 2018. 2 views of the abdomen appears nonacute and nonobstructed. Calcified splenic granulomas and scattered aortoiliac calcifications. Remaining solid organs unremarkable. Osseous structures intact with osteopenia and multilevel degenerative spondylosis. Single PA chest is clear again with mediastinal/hilar calcified nodes, borderline cardiomegaly, and left-sided single lead pacemaker. No new/acute findings. Impression: Nonacute nonobstructed abdomen and stable nonacute chest with chronic features.
[2018-10-23 13:46] LABS: Appearance CLEAR (CLEAR); Bilirubin NEGATIVE (NEGATIVE); Blood NEGATIVE Ery/ul (0-5); Glucose NEGATIVE (NEGATIVE); Ketones NEGATIVE (NEGATIVE); Leukocyte Esterase NEGATIVE (NEGATIVE); Nitrite NEGATIVE (NEGATIVE); Protein,Urine Dip NEGATIVE (Negative); Specific Gravity 1.003 (1.005-1.025); Urobilinogen NEGATIVE mg/dL (0-1)
[2018-10-23 14:37] VITALS: BP 149/77; PULSE 57; O2SAT 100
== END 2018-10-23 14:59 | disposition home or self-care (01) ==
LOC: ED 10:42
DX: R10.32 Left lower quadrant pain (principal); K57.32 Diverticulitis of large intestine without perforation or abscess without bleeding; K59.00 Constipation, unspecified; E11.9 Type 2 diabetes mellitus without complications; E03.9 Hypothyroidism, unspecified; I10 Essential (primary) hypertension; Z85.528 Personal history of other malignant neoplasm of kidney; Z79.01 Long term (current) use of anticoagulants; Z79.4 Long term (current) use of insulin; Z79.899 Other long term (current) drug therapy
CPT/HCPCS: 36000; 36415; 74022; 80053; 81001; 82150; 83690; 84484; 85025; 93005; 96374; 99284; J2270

== ENCOUNTER 2018-11-17 17:39 | Emergency (ER) | payer MEDICARE, OTHER ==
[2018-11-17] MEDS ORDERED: Zofran 4 MG/2 ML VIAL IV ONE (18:28)
[2018-11-17] MEDS ORDERED: MORPHINE SULFATE 4 MG INJ IV ONE (18:28)
[2018-11-17] MEDS ORDERED: Sodium Chloride 0.9% 1000 ML 1,000 ML IV SCH (18:30)
--- NOTE | 2018-11-17 18:33 | ERPHSYRPT ---
<LARRY MAYBERRY - Last Filed: 11/17/18 18:55> - History of Present Illness Time Seen by Provider: 11/17/18 18:05 Historian: patient, family Exam Limitations: no limitations Patient Subjective Stated Complaint: Pt states "I have been having trouble with diverticulitis on the left side and my belly is killing me. I am also having some chest pain" Triage Nursing Assessment: Pt presented to the ed through the front and placed in room 5. Pt presented alert and oriented X 3, skin pwd. pt ambulates with an upright steady gait, able to speak in clear full sentences. Pt in no apparent respiratory distress. Physician History: 73 y/o white male, with known cardiac hx/ventricular pacemaker/elevated troponins and left side diverticulitis, presents with both left sided abd pain and cp. pt seen one month ago with sig abd pain and elevated troponins. pt also is morbidly obese, has acute on chronic kidney dz, dm and htn. pts supervisor insulation is dr. ayala in [place]. pt has pacemaker in place for arrhythmia issues. Timing/Duration: today Activities at Onset: none Quality: cramping, sharpness, stabbing Location: central, epigastric, abdomen Chest Pain Radiation: no radiation Severity of Pain-Max: moderate Severity of Pain-Current: moderate Modifying Factors: Improves With: nothing Associated Symptoms: abdominal pain, No nausea, No vomiting, No palpitations, No shortness of breath, No cough, No hurts to breathe, No weakness, No back pain Prior Chest Pain/Cardiac Workup: cardiac cath, echocardiography, recently seen/ treated Nitro Today/Relief: no nitro taken today Aspirin Treatment Today: 81 mg x 1, provided at home Allergies/Adverse Reactions: rivaroxaban [From Xarelto] Allergy (Severe, Verified 10/23/18 11:30) penicillin G Allergy (Mild, Verified 10/23/18 11:30) Rash Sulfa (Sulfonamide Antibiotics) [Sulfa(Sulfonamide Antibiotics)] Allergy (Mild, Verified 10/23/18 11:30) Rash simvastatin [From Zocor] Adverse Reaction (Mild, Verified 10/23/18 11:30) liver enzymes increase. Home Medications: Apixaban [Eliquis 5 mg Tablet] 5 mg PO BID 12/05/16 [History] Nitroglycerin 0.4 mg Tablet [Nitrostat 0.4 MG Tablet] 0.4 mg SL UD [History] Nitroglycerin [Nitro-Dur] 0.2 each TD DAILY 04/23/16 [History] Omeprazole 20 MG [Prilosec 20 mg] 20 mg PO DAILY 04/23/16 [History] Tramadol HCl 50 mg [Ultram 50 mg] 50 mg PO UD PRN 04/23/16 [History] Lactulose 10 gm PO DAILY PRN 06/17/17 [History] Magnesium Oxide [Magnesium] 400 mg PO DAILY 06/17/17 [History] Alogliptin Benzoate [Alogliptin] 12.5 mg PO DAILY 10/19/18 [History] Aspirin [Aspirin EC] 81 mg PO DAILY 10/19/18 [History] Benazepril HCl 10 mg [Lotensin 10 MG] 10 mg PO DAILY 10/19/18 [History] Furosemide [Lasix] 20 mg PO DAILY 10/19/18 [History] Insulin Glargine [Lantus Insulin] 55 unit SQ HS 10/19/18 [History] Insulin Lispro [Humalog] 5 unit SQ AC 10/19/18 [History] Tamsulosin HCl 0.4 mg [Flomax 0.4 MG] 0.4 mg PO DAILY 10/19/18 [History] Atorvastatin Calcium [Lipitor] 80 mg PO DAILY 11/17/18 [History] Hx Tetanus, Diphtheria Vaccination/Date Given: Yes Hx Influenza Vaccination/Date Given: Yes Hx Pneumococcal Vaccination/Date Given: Yes Immunizations Up to Date: Yes - Review of Systems Constitutional: No Symptoms Eyes: No Symptoms Ears, Nose, & Throat: No Symptoms Respiratory: No Symptoms Cardiac: Chest Pain Abdominal/Gastrointestinal: Abdominal Pain (left side), No Nausea, No Vomiting, No Diarrhea Genitourinary Symptoms: No Symptoms Musculoskeletal: No Symptoms Skin: No Symptoms Neurological: No Symptoms Psychological: No Symptoms Endocrine: No Symptoms Hematologic/Lymphatic: No Symptoms Immunological/Allergic: No Symptoms All Other Systems: Reviewed and Negative - Past Medical History Pertinent Past Medical History: Yes Neurological History: Stroke, Other ENT History: No Pertinent History Cardiac History: Arrhythmia, Coronary Artery Disease, Hypertension, Myocardial Infarction ([place]), Other Respiratory History: No Pertinent History Endocrine Medical History: Diabetes Type II Musculoskeletal History: Osteoarthritis GI Medical History: Diverticulitis, Gallbladder Disease, Hernia, Other History: Kidney Cancer, Renal Disease Psycho-Social History: No Pertinent History Male Reproductive Disorders: No Pertinent History Other Medical History: Hiatal Hernia with a fat bulge. - Past Surgical History Past Surgical History: Yes Neuro Surgical History: No Pertinent History Cardiac: Cardiac Stent, Pacemaker Respiratory: No Pertinent History Gastrointestinal: No Pertinent History Genitourinary: Kidney Surgery Musculoskeletal: Orthopedic Surgery Male Surgical History: No Pertinent History Other Surgical History: Right knee arthroscopy 2016, Paracentesis 2017, right kidney removal 2018, Bilateral rotator cuff repairs - Social History Smoking Status: Never smoker Exposure to second hand smoke: Yes Drug Use: none Patient Lives Alone: No - Nursing Vital Signs Nursing Vital Signs: Initial Vital Signs Temperature 97.8 F 11/17/18 17:46 Pulse Rate 60 11/17/18 17:46 Respiratory Rate 16 11/17/18 17:46 Blood Pressure 158/75 11/17/18 17:46 O2 Sat by Pulse Oximetry 98 11/17/18 17:46 Pain Scale Pain Intensity 6 - Physical Exam General Appearance: mild distress, alert, anxiety Eye Exam: PERRL/EOMI, eyes nml inspection Ears, Nose, Throat Exam: normal ENT inspection, moist mucous membranes Neck Exam: normal inspection, non-tender, supple, full range of motion Respiratory Exam: normal breath sounds, chest tenderness, lungs clear, airway intact, No respiratory distress Cardiovascular Exam: regular rate/rhythm, normal heart sounds, normal peripheral pulses Gastrointestinal/Abdomen Exam: soft, normal bowel sounds, tenderness (left lower quad), guarding, No mass, No rebound Rectal Exam: not done Back Exam: normal inspection, normal range of motion, No CVA tenderness, No vertebral tenderness Extremity Exam: normal inspection, normal range of motion, pelvis stable Neurologic Exam: alert, oriented x 3, cooperative, technical operator II-XII nml as tested Skin Exam: normal color, warm, dry Lymphatic Exam: No adenopathy SpO2 Interpretation: normal SpO2: 98 O2 Delivery: Room Air - Course EKG Interpreted by Me: RATE (60), Other (all qrs complexes paced by pacemaker. no change from ekg dated 10/23/18) Ordered Tests: Active Orders 24 hr Category Date Time Status Automotive Starter Repairer STAT Care 11/17/18 18:29 Active EKG-ER Only STAT Care 11/17/18 18:28 Active IV Insertion STAT Care 11/17/18 18:28 Active Pulse Oximetry (ED) STAT Care 11/17/18 18:28 Active ABDOMEN AND PELVIS W/0 CONTRAS [CT] Stat Exams 11/17/18 18:48 Taken CHEST 1 VIEW (PORTABLE) Stat Exams 11/17/18 18:46 Taken AMYLASE Stat Lab 11/17/18 17:58 Completed CBC W DIFF Stat Lab 11/17/18 17:58 Completed CMP Stat Lab 11/17/18 17:58 Completed D-DIMER QUANTITATION Stat Lab 11/17/18 17:58 Completed LIPASE Stat Lab 11/17/18 17:58 Completed Lactic Acid Stat Lab 11/17/18 19:20 Completed NT PRO BNP Stat Lab 11/17/18 17:58 Completed PROTIME WITH INR Stat Lab 11/17/18 17:58 Completed TROPONIN Q3H Lab 11/17/18 17:58 Completed TROPONIN Q3H Lab 11/17/18 21:30 Ordered TROPONIN Q3H Lab 11/18/18 00:30 Ordered TROPONIN Q3H Lab 11/18/18 03:30 Ordered TROPONIN Q3H Lab 11/18/18 06:30 Ordered UA W/RFX UR CULTURE Stat Lab 11/17/18 20:10 Completed Medication Summary Generic Name Dose Route Start Last Admin Trade Name Freq PRN Reason Stop Dose Admin Sodium Chloride 1,000 mls @ 50 mls/hr 11/17/18 18:30 11/17/18 18:56 Sodium Chloride 0.9% 1000 Ml IV 12/17/18 18:29 50 mls/hr .Q20H CRHIST Administration Discontinued Medications Generic Name Dose Route Start Last Admin Trade Name Freq PRN Reason Stop Dose Admin Morphine Sulfate 4 mg 11/17/18 18:28 11/17/18 18:56 Morphine Sulfate 4 Mg Inj IV 11/17/18 18:29 4 mg STAT ONE Administration Morphine Sulfate Confirm 11/17/18 18:51 Morphine Sulfate 4 Mg Inj Administered 11/17/18 18:52 Dose 4 mg .ROUTE .STK-MED ONE Ondansetron HCl 4 mg 11/17/18 18:28 11/17/18 18:56 Zofran 4 Mg/2 Ml Vial IV 11/17/18 18:29 4 mg STAT ONE Administration Ondansetron HCl Confirm 11/17/18 18:51 Zofran 4 Mg/2 Ml Vial Administered 11/17/18 18:52 Dose 4 mg .ROUTE .STK-MED ONE Lab/Rad Data: Laboratory Result Diagrams 11/17/18 17:58 11/17/18 17:58 Laboratory Results 11/17/18 11/17/18 11/17/18 Range/Units 20:10 19:20 17:58 WBC (4.0-10.5) K/mm3 RBC (4.1-5.6) M/mm3 Hgb (12.5-18.0) gm/dl Hct (42-50) % MCV (78-100) fl MCH (26-32) pg MCHC (32-36) g/dl RDW (11.5-14.0) % Plt Count (150-450) K/mm3 MPV (6-9.5) fl Gran % (36.0-66.0) % Eos # (Auto) (0-0.5) Absolute Lymphs (auto) (1.0-4.6) Absolute Monos (auto) (0.0-1.3) Lymphocytes % (24.0-44.0) % Monocytes % (0.0-12.0) % Eosinophils % (0.00-5.0) % Basophils % (0.0-0.4) % Absolute Granulocytes (1.4-6.9) Basophils # (0-0.4) PT (8.83-12.87) SECONDS INR (0.8-3.0) D-Dimer (215-500) ng/mL Sodium (137-145) mmol/L Potassium (3.5-5.1) mmol/L Chloride (98-107) mmol/L Carbon Dioxide (22-30) mmol/L Anion Gap (5-15) MEQ/L BUN (9-20) mg/dL Creatinine (0.66-1.25) mg/dL Estimated GFR ML/MIN Glucose (74-106) mg/dL Lactic Acid 1.1 (0.4-2.0) Calcium (8.4-10.2) mg/dL Total Bilirubin (0.2-1.3) mg/dL AST (17-59) U/L ALT (0-50) U/L Alkaline Phosphatase (38-126) U/L Troponin I (0.000-0.034) ng/mL NT-Pro-B Natriuret Pep (0-900) pg/mL Serum Total Protein (6.3-8.2) g/dL Albumin (3.5-5.0) g/dL Amylase 36 (30-110) U/L Lipase 15 L (23-300) U/L Urine Color YELLOW (YELLOW) Urine Appearance CLEAR (CLEAR) Urine pH 6.0 (5-6) Ur Specific [place]ira 1.006 (1.005-1.025) Urine Protein NEGATIVE (Negative) Urine Ketones NEGATIVE (NEGATIVE) Urine Blood NEGATIVE (0-5) Antonio/ul Urine Nitrite NEGATIVE (NEGATIVE) Urine Bilirubin NEGATIVE (NEGATIVE) Urine Urobilinogen NEGATIVE (0-1) mg/dL Ur Leukocyte Esterase NEGATIVE (NEGATIVE) Urine RBC (Auto) NONE (0-2) /HPF Urine Culture Reflexed NO (NO) Urine Glucose NEGATIVE (NEGATIVE) mg/dL 11/17/18 11/17/18 11/17/18 Range/Units 17:58 17:58 17:58 WBC (4.0-10.5) K/mm3 RBC (4.1-5.6) M/mm3 Hgb (12.5-18.0) gm/dl Hct (42-50) % MCV (78-100) fl MCH (26-32) pg MCHC (32-36) g/dl RDW (11.5-14.0) % Plt Count (150-450) K/mm3 MPV (6-9.5) fl Gran % (36.0-66.0) % Eos # (Auto) (0-0.5) Absolute Lymphs (auto) (1.0-4.6) Absolute Monos (auto) (0.0-1.3) Lymphocytes % (24.0-44.0) % Monocytes % (0.0-12.0) % Eosinophils % (0.00-5.0) % Basophils % (0.0-0.4) % Absolute Granulocytes (1.4-6.9) Basophils # (0-0.4) PT 16.6 H (8.83-12.87) SECONDS INR 1.46 (0.8-3.0) D-Dimer 424 (215-500) ng/mL Sodium 134 L (137-145) mmol/L Potassium 4.5 (3.5-5.1) mmol/L Chloride 101 (98-107) mmol/L Carbon Dioxide 25 (22-30) mmol/L Anion Gap 13.2 (5-15) MEQ/L BUN 24 H (9-20) mg/dL Creatinine 1.64 H (0.66-1.25) mg/dL Estimated GFR 43.9 ML/MIN Glucose 178 H (74-106) mg/dL Lactic Acid (0.4-2.0) Calcium 9.8 (8.4-10.2) mg/dL Total Bilirubin 1.40 H (0.2-1.3) mg/dL AST 27 (17-59) U/L ALT 26 (0-50) U/L Alkaline Phosphatase 157 H (38-126) U/L Troponin I 0.043 H* (0.000-0.034) ng/mL NT-Pro-B Natriuret Pep 2200 H (0-900) pg/mL Serum Total Protein 7.7 (6.3-8.2) g/dL Albumin 4.0 (3.5-5.0) g/dL Amylase (30-110) U/L Lipase (23-300) U/L Urine Color (YELLOW) Urine Appearance (CLEAR) Urine pH (5-6) Ur Specific [place] (1.005-1.025) Urine Protein (Negative) Urine Ketones (NEGATIVE) Urine Blood (0-5) Antonio/ul Urine Nitrite (NEGATIVE) Urine Bilirubin (NEGATIVE) Urine Urobilinogen (0-1) mg/dL Ur Leukocyte Esterase (NEGATIVE) Urine RBC (Auto) (0-2) /HPF Urine Culture Reflexed (NO) Urine Glucose (NEGATIVE) mg/dL 11/17/18 Range/Units 17:58 WBC 8.3 (4.0-10.5) K/mm3 RBC 4.80 (4.1-5.6) M/mm3 Hgb 13.7 (12.5-18.0) gm/dl Hct 43.0 (42-50) % MCV 89.6 (78-100) fl MCH 28.5 (26-32) pg MCHC 31.9 L (32-36) g/dl RDW 14.2 H (11.5-14.0) % Plt Count 101 L (150-450) K/mm3 MPV 12.1 H (6-9.5) fl Gran % 75.6 H (36.0-66.0) % Eos # (Auto) 0.21 (0-0.5) Absolute Lymphs (auto) 0.93 L (1.0-4.6) Absolute Monos (auto) 0.87 (0.0-1.3) Lymphocytes % 11.2 L (24.0-44.0) % Monocytes % 10.5 (0.0-12.0) % Eosinophils % 2.5 (0.00-5.0) % Basophils % 0.2 (0.0-0.4) % Absolute Granulocytes 6.27 (1.4-6.9) Basophils # 0.02 (0-0.4) PT (8.83-12.87) SECONDS INR (0.8-3.0) D-Dimer (215-500) ng/mL Sodium (137-145) mmol/L Potassium (3.5-5.1) mmol/L Chloride (98-107) mmol/L Carbon Dioxide (22-30) mmol/L Anion Gap (5-15) MEQ/L BUN (9-20) mg/dL Creatinine (0.66-1.25) mg/dL Estimated GFR ML/MIN Glucose (74-106) mg/dL Lactic Acid (0.4-2.0) Calcium (8.4-10.2) mg/dL Total Bilirubin (0.2-1.3) mg/dL AST (17-59) U/L ALT (0-50) U/L Alkaline Phosphatase (38-126) U/L Troponin I (0.000-0.034) ng/mL NT-Pro-B Natriuret Pep (0-900) pg/mL Serum Total Protein (6.3-8.2) g/dL Albumin (3.5-5.0) g/dL Amylase (30-110) U/L Lipase (23-300) U/L Urine Color (YELLOW) Urine Appearance (CLEAR) Urine pH (5-6) Ur Specific Ex[place] (1.005-1.025) Urine Protein (Negative) Urine Ketones (NEGATIVE) Urine Blood (0-5) Antonio/ul Urine Nitrite (NEGATIVE) Urine Bilirubin (NEGATIVE) Urine Urobilinogen (0-1) mg/dL Ur Leukocyte Esterase (NEGATIVE) Urine RBC (Auto) (0-2) /HPF Urine Culture Reflexed (NO) Urine Glucose (NEGATIVE) mg/dL - Progress Progress Note: 11/17/18 18:55 transfer of care-i have reviewed pt hx and condition with . i reviewed labs, xray studies ordered. he accepts pt in transfer. - Departure Clinical Impression: Non-Q wave non-ST elevation myocardial infarction Chest pain Qualifiers: Chest pain type: unspecified Qualified Code(s): R07.9 - Chest pain, unspecified Abdominal pain Qualifiers: Abdominal location: left lower quadrant Qualified Code(s): R10.32 - Left lower quadrant pain Condition: Fair Referrals: JASWINDER WHITNEY [Primary Care Provider] - <MARIO ALBERTO DAVID - Last Filed: 11/17/18 20:46> - Course Nursing assessment & vital signs reviewed: Yes - Radiology Exams Chest X-ray Interpretation: Interpreted by me (non acute chest) - CT Exams Abdomen/Pelvis CT Interpretation: Discussed w/radiologist (CT abdomen and pelvis. Impression 1 unstable colonic diverticulosis. Small hiatal hernia. Right nephrectomy. Fatty liver. Gallstones. Right flank fatty hernia. And evidence for old granulomatous disease. Compared to September 17, 2018, And October 19, 2018) - Progress Progress: improved Air Movement: fair Progress Note: 11/17/18 19:41 33-year-old white male with history of arrhythmia, coronary artery disease, high blood pressure, myocardial infarction, diabetes, diverticulitis, gallbladder disease, hernia, kidney cancer, hiatal hernia who has a cardiac pacemaker Initially seen by Dr. Mayberry Patient states he's been having left lower car pain all day long he states that this began around this morning he describes this as a cramping sharp in his stabbing also epigastric pain as well also having chest pain starting at 2:00 this afternoon while getting feed is no nausea no vomiting no shortness of breath. Patient had taken those are also 5 mg of aspirin 81 mg this morning He states he used 2 nitroglycerin at 2:00 his pain went away and came back at 3: 00 in his chest. He states he does have a nitroglycerin patch on. Currently no more abdominal pain he was given morphine when he arrived in the emergency room. He states his chest pain is improved. Past medical history includes arrhythmia coronary disease high blood pressure myocardial infarction diabetes type 2, diverticulitis, gallbladder disease, kidney cancer, heart disease, hiatal hernia, past surgical history includes cardiac stents right knee arthroplasty cardiac pacemaker right kidney removed bilateral rotator cuff Patient's EKG paced rhythm 60 beats per minute patient's vitals temperature 90.7 a pulse 67 respirations 16 blood pressure 158/75 sats are 98% CBC white blood cell 8.3 hemoglobin 13.7 hematocrit 43.0 platelets 11 Chemistry sodium 134 potassium 4.5 chloride 101 bicarbonate 25 BUN 24 creatinine 1.64 glucose 178 Troponin is elevated at 0.043(troponin was 0.044 at last check last visit) Patient's d-dimer within normal limits Patient BNP 2200 Amylase 36 lipase 15 Chest x-ray nonacute chest Impression chest pain 2 left lower quadrant pain. History of diverticulitis. Plan await CT reading for abdomen. 11/17/18 20:[address] abdomen: Stable colonic diverticulosis and hiatal hernia, right nephrectomy, fatty liver, gallstones on the right. Flank fatty hernia and evidence for old granulomatous disease compared to September 17, 2018 in October 19, 2018 Patient with minimal chest pain abdominal pain gone, I discussed case with Dr. Brewster extruder operator horizontal for Dr. Phillips. He accepted the patient for transfer he did recommend nitro drip have patient continue to have pain patient recheck he states his pain is gone now. Will transfer patient to [facility] will wipe off nitro paste and start nitroglycerin drip if any further chest pain. Impression [address] Non st wave mi. 3. Abdominal pain. 11/17/18 20:45 Dr. Brewster did not feel patient needed aspirin, he is already taken 81 mg of aspirin at home this morning and he is an eloquent 5 mg orally twice a day he took his morning dose. - Departure Departure Disposition: Transfer ([facility]) Critical Care Time: No
[2018-11-17 18:39] LABS: INR 1.46 (0.8-3.0); PROTIME 16.6 SECONDS (8.83-12.87)
[2018-11-17 18:40] LABS: BASOPHIL % 0.2 % (0.0-0.4); Basophil (Absolute #) 0.02 (0-0.4); Eosinophil % 2.5 % (0.00-5.0); Eosinophil (Absolute #) 0.21 (0-0.5); Granulocyte Absolute (ANC) 6.27 (1.4-6.9); Granulocytes % 75.6 % (36.0-66.0); Hemoglobin 13.7 gm/dl (12.5-18.0); Lymphocyte (Absolute #) 0.93 (1.0-4.6); Lymphocytes % 11.2 % (24.0-44.0); Mean Cell Volume 89.6 fl (78-100); Mean Corpuscular Hemoglobin 28.5 pg (26-32); Mean Corpuscular Hgb Concent. 31.9 g/dl (32-36); Mean Platelet Volume 12.1 fl (6-9.5); Monocyte (Absolute #) 0.87 (0.0-1.3); Monocytes % 10.5 % (0.0-12.0); Platelet Count 101 K/mm3 (150-450); Red Cell Distribution Width 14.2 % (11.5-14.0); White Blood Count 8.3 K/mm3 (4.0-10.5)
[2018-11-17 18:51] LABS: AMYLASE 36 U/L (30-110)
[2018-11-17] MEDS ORDERED: Zofran 4 MG/2 ML VIAL ONE (18:51)
[2018-11-17] MEDS ORDERED: MORPHINE SULFATE 4 MG INJ ONE (18:51)
[2018-11-17] MEDS ORDERED: Sodium Chloride 0.9% 1000 ML 1,000 ML ONE (18:51)
[2018-11-17 18:53] LABS: ANION GAP 13.2 MEQ/L (5-15); BILIRUBIN,TOTAL 1.4 mg/dL (0.2-1.3); Calcium 9.8 mg/dL (8.4-10.2); Creatinine 1 1.64 mg/dL (0.66-1.25); Potassium 4.5 mmol/L (3.5-5.1); Total Protein 7.7 g/dL (6.3-8.2)
[2018-11-17 20:22] LABS: Appearance CLEAR (CLEAR); Bilirubin NEGATIVE (NEGATIVE); Blood NEGATIVE Ery/ul (0-5); Glucose NEGATIVE (NEGATIVE); Ketones NEGATIVE (NEGATIVE); Leukocyte Esterase NEGATIVE (NEGATIVE); Nitrite NEGATIVE (NEGATIVE); Protein,Urine Dip NEGATIVE (Negative); Specific Gravity 1.006 (1.005-1.025); Urobilinogen NEGATIVE mg/dL (0-1)
[2018-11-17 21:57] VITALS: O2SAT 96
[2018-11-17 23:04] VITALS: BP 157/75; PULSE 20
--- NOTE | 2018-11-18 08:40 | XRAY ---
Indication: Left abdominal pain. History right renal cancer with nephrectomy. Multiple contiguous axial images obtained through the abdomen and pelvis without contrast as ordered. Comparison: October 19, 2018. Lung bases again demonstrates scattered fibrosis/scarring and a few tiny calcified granulomas. No infiltrate or effusion. Heart remains borderline enlarged. Stable small hiatal hernia. Noncontrasted stomach and bowel loops again appear nonobstructed with scattered colonic diverticulosis. No diverticulitis or free fluid/air. Normal appendix. Stable tiny gallstones, fatty liver, hepatic/splenic calcified granulomas, fatty replaced pancreas, right nephrectomy, and right mid axillary line fatty hernia defect. Remaining liver, gallbladder, pancreas, spleen, adrenal glands, left kidney, left ureter, and bladder appear unremarkable for noncontrast exam. Stable mild aortoiliac calcifications without AAA. Osseous structures again demonstrates a degenerative changes throughout the thoracolumbar spine. Impression: 1. Again hiatal hernia, colonic diverticulosis, gallstones, fatty liver, right nephrectomy, right flank fatty hernia, and evidence for old granulomatous disease. 2. Remaining CT abdomen/pelvis without contrast exam is negative. CT DI 23.68
--- NOTE | 2018-11-18 08:44 | XRAY ---
Indication: Chest pain. Comparison: October 23, 2018. Portable apical lordotic chest remains clear again with mediastinal/hilar calcified nodes, borderline cardiomegaly, and left sided pacemaker. No new/acute findings.
== END 2018-11-17 22:55 | disposition short-term general hospital (02) ==
LOC: ED 17:39
DX: I21.4 Non-ST elevation (NSTEMI) myocardial infarction (principal); R07.9 Chest pain, unspecified; R10.32 Left lower quadrant pain; Z95.0 Presence of cardiac pacemaker; E66.01 Morbid (severe) obesity due to excess calories; Z79.01 Long term (current) use of anticoagulants; Z79.899 Other long term (current) drug therapy; I25.10 Atherosclerotic heart disease of native coronary artery without angina pectoris; I10 Essential (primary) hypertension; E11.9 Type 2 diabetes mellitus without complications; Z79.4 Long term (current) use of insulin; M19.90 Unspecified osteoarthritis, unspecified site; Z85.528 Personal history of other malignant neoplasm of kidney; N28.9 Disorder of kidney and ureter, unspecified
CPT/HCPCS: 36415; 71045; 74176; 80053; 81001; 82150; 83605; 83690; 83880; 84484; 85025; 85379; 85610; 93005; 93041; 94760; 96360; 96361; 96374; 96375; 99285; J2270; J2405

== ENCOUNTER 2019-11-22 06:55 | Emergency (ER) | payer MEDICARE, OTHER ==
[2019-11-22] MEDS ORDERED: Rocephin 1000 MG INJ IM ONE (07:21)
--- NOTE | 2019-11-22 07:21 | ERPHSYRPT ---
- History of Present Illness Time Seen by Provider: 11/22/19 07:18 Source: patient, family Exam Limitations: no limitations Patient Subjective Stated Complaint: saturday night started having right ear pain radiates to jaw and a head, he wears hearing aids, denies drainage, pt is unable able to wear partial plate and wonders if a tooth could be bothering him, he has multi caries Triage Nursing Assessment: pt alert, walked in. resp easy, mask on, no drainage from ear, Physician History: saturday night started having right ear pain radiates to jaw and a head, he wears hearing aids, denies drainage, pt is unable able to wear partial plate and wonders if a tooth could be bothering him, he has multiple dental caries. c/o low grade fever ~99`F Timing/Duration: gradual onset Severity: moderate ENT Location: ear (R), throat, facial, dental Prearrival Treatment: no prearrival treatment Associated Symptoms: ear pain (R), fever, change in hearing, facial pain/swelling, hearing loss, jaw pain, nasal congestion/drainage, sinus infection, sore throat, tooth pain, No cough, No chills, No dizziness, No drooling, No ear drainage, No headache, No malaise, No motion sickness, No epistaxis Allergies/Adverse Reactions: rivaroxaban [From Xarelto] Allergy (Severe, Verified 11/22/19 07:09) penicillin G Allergy (Mild, Verified 11/22/19 07:09) Rash Sulfa (Sulfonamide Antibiotics) [Sulfa(Sulfonamide Antibiotics)] Allergy (Mild, Verified 11/22/19 07:09) Rash simvastatin [From Zocor] Adverse Reaction (Mild, Verified 11/22/19 07:09) liver enzymes increase. Home Medications: Apixaban [Eliquis 5 mg Tablet] 5 mg PO BID 04/23/16 [History] Nitroglycerin 0.4 mg Tablet [Nitrostat 0.4 MG Tablet] 0.4 mg SL UD 04/23/16 [History] Nitroglycerin [Nitro-Dur] 0.2 each TD DAILY 04/23/16 [History] Omeprazole 20 MG [Prilosec 20 mg] 20 mg PO DAILY 04/23/16 [History] Tramadol HCl 50 mg [Ultram 50 mg] 50 mg PO UD PRN 04/23/16 [History] Lactulose 10 gm PO DAILY PRN 06/17/17 [History] Magnesium Oxide [Magnesium] 400 mg PO DAILY 06/17/17 [History] Alogliptin Benzoate [Alogliptin] 12.5 mg PO DAILY 10/19/18 [History] Aspirin [Aspirin EC] 81 mg PO DAILY 10/19/18 [History] Benazepril HCl 10 mg [Lotensin 10 MG] 10 mg PO DAILY 10/19/18 [History] Insulin Glargine [Lantus Insulin] 55 unit SQ HS 10/19/18 [History] Insulin Lispro [Humalog] 5 unit SQ AC 10/19/18 [History] Atorvastatin Calcium [Lipitor] 80 mg PO DAILY 11/17/18 [History] Hx Tetanus, Diphtheria Vaccination/Date Given: Yes Hx Influenza Vaccination/Date Given: Yes Hx Pneumococcal Vaccination/Date Given: Yes Immunizations Up to Date: Yes Travel Risk - International Travel Have you traveled outside of the country in past 3 weeks: No - Coronavirus Screening Are you exhibiting any of the following symptoms?: No - Review of Systems Constitutional: Fever Eyes: No Symptoms Ears, Nose, & Throat: No Symptoms, Sinus Drainage, Mouth Pain, Loose Teeth, Throat Pain Respiratory: No Cough, No Dyspnea Cardiac: No Chest Pain, No Edema, No Syncope Abdominal/Gastrointestinal: No Abdominal Pain, No Nausea, No Vomiting, No Diarrhea Genitourinary Symptoms: No Dysuria Musculoskeletal: No Back Pain, No Neck Pain Skin: No Rash Neurological: No Dizziness, No Focal Weakness, No Sensory Changes Psychological: No Symptoms Endocrine: No Symptoms All Other Systems: Reviewed and Negative - Past Medical History Pertinent Past Medical History: Yes Neurological History: Stroke ENT History: No Pertinent History Cardiac History: Arrhythmia, Coronary Artery Disease, High Cholesterol, Hypertension, Other Respiratory History: No Pertinent History Endocrine Medical History: Diabetes Type II, Other Musculoskeletal History: Osteoarthritis GI Medical History: Diverticulitis, Gallbladder Disease, Hernia, Other History: Kidney Cancer, Renal Disease Psycho-Social History: No Pertinent History Male Reproductive Disorders: No Pertinent History Other Medical History: KIDNEY CANCER WITH RIGHT NEPHRECTOMY 06/2015. PACEMAKER PLACEMENT. HX BILATERAL ROTATOR CUFF REPAIRS - Past Surgical History Past Surgical History: Yes Neuro Surgical History: No Pertinent History Cardiac: Cardiac Stent, Pacemaker Respiratory: No Pertinent History Gastrointestinal: No Pertinent History Genitourinary: Kidney Surgery Musculoskeletal: Orthopedic Surgery Male Surgical History: No Pertinent History Other Surgical History: Right knee arthroscopy 2016, Paracentesis 2017, right kidney removal 2018, Bilateral rotator cuff repairs - Social History Smoking Status: Never smoker Exposure to second hand smoke: No Drug Use: none Patient Lives Alone: No - Nursing Vital Signs Nursing Vital Signs: Pain Scale Pain Intensity 7 - Physical Exam General Appearance: no apparent distress, alert Eye Exam: bilateral eye: PERRL, EOMI Nasal Exam: normal inspection Throat Exam: dental tenderness, moist mucus membranes, pharynx tenderness, No tonsillar exudate, No trismus Neck Exam: supple Cardiovascular/Respiratory Exam: normal breath sounds, regular rate/rhythm Abdominal Exam: non-tender, soft Neurologic Exam: alert, oriented x 3, sensation nml, No motor deficits Skin Exam: normal color, warm, dry - Course Nursing assessment & vital signs reviewed: Yes - Progress Progress: unchanged Counseled pt/family regarding: diagnosis, need for follow-up - Departure Departure Disposition: Home Clinical Impression: Dental abscess Sinusitis, acute maxillary Qualifiers: Recurrence: recurrent Qualified Code(s): J01.01 - Acute recurrent maxillary sinusitis Condition: Stable Critical Care Time: No Referrals: RIK RENE [Primary Care Provider] - Instructions: Tooth Abscess (DC), Sinusitis, Adult (DC) Additional Instructions: Discharge/Care Plan ROME CONLEY was seen on 11/22/19 in the Emergency Room. The patient was counseled regarding Diagnosis,Lab results, Imaging studies, need for follow up and when to return to the Emergency Room. Prescriptions given: Discharge Note I have spoken with the patient and/or caregivers. I have explained the patient's condition, diagnosis and treatment plan based on the information available to me at this time. I have answered the patient's and/or caregiver's questions and addressed any concerns. The patient and/or caregivers have as good understanding of the patient's diagnosis, condition and treatment plan as can be expected at this point. The vital signs have been stable. The patient's condition is stable and appropriate for discharge from the emergency department. The patient will pursue further outpatient evaluation with the primary care physician or other designated or consulting physician as outlined in the discharge instructions. The patient and/or caregivers are agreeable to this plan of care and follow-up instructions have been explained in detail. The patient and/or caregivers have received these instruction. The patient/and or caregivers are aware that any significant change in condition or worsening of symptoms should prompt an immediate return to this or the closest emergency department or call 911. Prescriptions: Doxycycline Hyclate 100 mg PO BID #20 tablet
[2019-11-22] MEDS ORDERED: XYLOCAINE 1% HCL 20 ML MDV ONE (07:25)
[2019-11-22] MEDS ORDERED: Rocephin 1000 MG INJ ONE (07:25)
[2019-11-22 08:08] VITALS: BP 151/67; PULSE 60; O2SAT 95
== END 2019-11-22 08:07 | disposition home or self-care (01) ==
LOC: ED 06:55
DX: J01.01 Acute recurrent maxillary sinusitis (principal); K04.7 Periapical abscess without sinus; H92.01 Otalgia, right ear; Z79.899 Other long term (current) drug therapy; I25.10 Atherosclerotic heart disease of native coronary artery without angina pectoris; E78.00 Pure hypercholesterolemia, unspecified; I10 Essential (primary) hypertension; E11.9 Type 2 diabetes mellitus without complications
CPT/HCPCS: 96372; 99283; J0696

== ENCOUNTER 2022-03-05 09:04 | Day surgery (SDC) | payer MEDICARE, OTHER ==
--- NOTE | 2022-03-05 09:08 | HP ---
DATE OF SURGERY: 03/05/2022 HISTORY OF PRESENT ILLNESS: The patient is a 76-year-old gentleman who follows with Dr. Ayala. He had some colon thickening on CT scan. He had some renal cancer in the past. He had nephrectomy in the past. He had some colon thickening on recent on a recent CT scan. He is in need of follow up colonoscopy. No bloody stools. No change in bowel movements. No new pain. His father did have colon cancer. PAST MEDICAL HISTORY: Diabetes mellitus type II, congestive heart failure, sleep apnea, coronary artery disease, hypertension, anemia, atrial fibrillation. PAST SURGICAL HISTORY: Colonoscopy and endoscopy in the past. Rotator cuff. Nephrectomy. Cardiac cath, Coronary stents. Hernia repair. MEDICATIONS: Humalog, Lantus, Alogliptin, omeprazole, atorvastatin, vitamin D2, Flomax, metolazone, triamterene, furosemide, Nitro-Dur transdermal patch, Nitro-Stat PRN, losartan, carvedilol, Eliquis, clopidogrel, Euthyrox. ALLERGIES: PENICILLIN. PRADAXA. SULFA. XARELTO. ZOCOR. FAMILY HISTORY: Father with colon cancer. Diabetes, heart disease, lung cancer. SOCIAL HISTORY: No smoking or alcohol abuse. REVIEW OF SYSTEMS: Fourteen systems reviewed. As noted above, per preadmission assessment multiple problems. PHYSICAL EXAMINATION: GENERAL: No acute distress. HEENT: Sclerae nonicteric. NECK: No JVD. CHEST: Equal excursion, nonlabored breathing, breath sounds equal. CVS: Regular rhythm. ABDOMEN: Soft. Weakness in inguinal area. No peritoneal signs. EXTREMITIES: No cyanosis. NEURO: Alert, moving extremities symmetrically. SKIN: Dry. RECTAL: Deferred timed to endoscopy exam. PSYCH: Appropriate mood and affect. IMPRESSION: Abnormal CT scan, needs follow up colonoscopy. Risk of bleeding or infection, risk of bowel injury or perforation, risk of missed or nondiagnosis or incomplete exam possibly requiring other studies or procedures, general risk of anesthesia or sedation, risk of bowel prep but not limited to. He had been shown the risk sheet, explained the procedure in detail but not limited to, consent obtained. Will proceed with outpatient follow up colonoscopy under MAC anesthesia.
[2022-03-05] MEDS ORDERED: Lactated Ringers 1,000 ML IV SCH (09:30)
[2022-03-05] MEDS ORDERED: Lactated Ringers 1,000 ML IV ONE (09:54)
[2022-03-05] MEDS ORDERED: Xylocaine-Mpf 2% 5 Ml Vial ONE (12:14)
[2022-03-05] MEDS ORDERED: DIPRIVAN 200 MG/20 ML IV ONE ×2 (12:14→12:35)
[2022-03-05 13:36] VITALS: PULSE 60
[2022-03-05 14:23] VITALS: BP 141/76; O2SAT 98
--- NOTE | 2022-03-06 09:15 | OP ---
SURGERY DATE/TIME: 03/05/2022 1215 PREOPERATIVE DIAGNOSES: 1) History of abnormal thickening of right colon hepatic flexure area on recent CT scan. 2) Prior history of renal cancer. POSTOPERATIVE DIAGNOSES: 1) Multiple small polyps ascending colon, transverse colon. 2) Diverticulosis. 3) Poor bowel prep particularly the left colon. PROCEDURES: 1) Colonoscopy to cecum. 2) Hot biopsy polypectomy. 3) Small early ascending colon polyps x3. 4) Hot biopsy polypectomy small early transverse colon polyp x2 or 3. 5) Random cold biopsies of the ascending colon and transverse colon given the history of thickened colon on the CT scan (some visible evidence of melanosis coli but no evidence of any maximiliano macroscopic colitis). Biopsy taken to evaluate for microscopic colitis. SURGEON: Dr. Dimas Echeverria. ANESTHESIA: MAC. ESTIMATED BLOOD LOSS: Minimal. INDICATIONS: As noted above. Risks and benefits explained in detail but not limited to and consent obtained. DESCRIPTION OF PROCEDURE AND FINDINGS: The patient is taken to the endoscopy room. MAC anesthesia induced. After official time out and no disagreement with planned procedure, digital rectal exam did not reveal any rectal masses. Video colonoscope inserted. He had a large amount of some solid stool balls, liquidy and semisolid stool very much limiting the exam in the left colon. The scope was slowly and carefully able to be navigated through this to the right colon, transverse and ascending colon which still had a lot of liquidy stool but did not have the solid stool that was in the left colon therefore continued around with position changes and external pressure the scope was able to reach the cecal valve and short of the stool coating the bowel limiting the exam. There was no sign of any large polyps, masses or obstructing lesion of cecum. He did have some signs of some melanosis coli in the ascending colon. There were no signs of any macroscopic colitis. He did have three small early polyps in the ascending colon removed with hot biopsy polypectomy. He had two or three small ones in the proximal ascending colon removed with hot biopsy polypectomy. Otherwise some random cold biopsies were taken in the ascending and transverse colon to evaluate for microscopic colitis. There was no maximiliano evidence of any obvious mass to account for the patients thickening. Cold biopsies taken to evaluate for microscopic colitis. Otherwise the scope was slowly and carefully withdrawn over the next 17 minutes or so, trying to suction irrigate as well as possible but again very poor left colon prep very much limiting the exam for small lesions. There did not appear to be any evidence of large lesions or obstructing mass on that side but prep did limit the exam for very small lesions. The scope is withdrawn. Findings discussed with his out in the waiting area.
== END 2022-03-05 14:20 | disposition home or self-care (01) ==
LOC: SDC 09:04
PROVIDERS: ATTEND Surgery
DX: K63.89 Other specified diseases of intestine (principal); Z80.0 Family history of malignant neoplasm of digestive organs; Z85.528 Personal history of other malignant neoplasm of kidney; D12.2 Benign neoplasm of ascending colon; D12.3 Benign neoplasm of transverse colon; E11.9 Type 2 diabetes mellitus without complications; K57.30 Diverticulosis of large intestine without perforation or abscess without bleeding
CPT/HCPCS: 82947; 99100; J2704

== ENCOUNTER 2022-04-24 05:27 | Inpatient (IN) | payer MEDICARE, OTHER ==
--- NOTE | 2022-04-24 06:01 | ERPHSYRPT ---
- History of Present Illness Time Seen by Provider: 04/24/22 05:57 Source: patient Exam Limitations: no limitations Patient Subjective Stated Complaint: fall at home Triage Nursing Assessment: pt arrived by ambulance, alert and oriented. Pt was in recliner chair this morning around 0430 and got up to go to bathroom. Pt fell, states, "I think my foot got caught on the chair". Pt c/o lt hip being sore but is able to move it. Pt currently undergoing chemotherapy for kidney and lung cancer and has just been "weaker" lately. Pt has 3-4+ pitting edema to bilat lower ext with cellulitis. Physician History: Patient 76-year-old male presents to our ED via EMS for evaluation status post fall. Patient is on chemotherapy for kidney and lung cancer. Patient states he was getting out of his recliner when he tripped and fell. Patient complains of pain to the right foot and left hip. No BHT or LOC. No neck pain. Cervical spine cleared clinically. Patient states he has been feeling a little weaker than normal. Patient advised please come to our ED for further evaluation falls not associated with chest pain or shortness of breath. No nausea vomiting or diaphoresis. Patient voices no other complaints or concerns at this time. Portions of this note were created with voice recognition technology. There may be grammatical, spelling, punctuation or sound alike errors Timing/Duration: today Severity: moderate Modifying Factors: Improves With: nothing Associated Symptoms: denies symptoms Allergies/Adverse Reactions: rivaroxaban [From Xarelto] Allergy (Severe, Verified 04/24/22 05:52) penicillin G Allergy (Mild, Verified 04/24/22 05:52) Rash Sulfa (Sulfonamide Antibiotics) [Sulfa(Sulfonamide Antibiotics)] Allergy (Mild, Verified 04/24/22 05:52) Rash dabigatran etexilate [From Pradaxa] Allergy (Verified 04/24/22 05:52) simvastatin [From Zocor] Adverse Reaction (Mild, Verified 04/24/22 05:52) liver enzymes increase. Home Medications: Nitroglycerin 0.4 mg Tablet [Nitrostat 0.4 MG Tablet] 0.4 mg SL UD 04/23/16 [History] Nitroglycerin [Nitro-Dur] 0.2 each TD DAILY 04/23/16 [History] Omeprazole 20 MG [Prilosec 20 mg] 20 mg PO DAILY 04/23/16 [History] Tramadol HCl 50 mg [Ultram 50 mg] 50 mg PO BID PRN PRN 04/23/16 [History] Alogliptin Benzoate [Alogliptin] 12.5 mg PO DAILY 10/19/18 [History] Insulin Glargine [Lantus Insulin] 60 unit SQ HS 10/19/18 [History] Insulin Lispro [Humalog] 12 unit SQ AC 10/19/18 [History] Ergocalciferol (Vitamin D2) [Vitamin D] 50,000 unit PO UD 11/18/20 [History] Furosemide 40 mg [Lasix 40 MG] 40 mg PO BID 11/18/20 [History] Sennosides/Docusate Sodium [Senna Plus Tablet] 1 each PO BID PRN PRN 11/18/20 [History] Levothyroxine Sodium [Euthyrox] 25 mcg PO DAILY 02/26/22 [History] Metolazone 2.5 mg [Zaroxolyn 2.5 MG] 2.5 mg PO UD 02/26/22 [History] Tamsulosin HCl 0.4 mg [Flomax 0.4 MG] 0.8 mg PO HS 02/26/22 [History] Hx Tetanus, Diphtheria Vaccination/Date Given: Yes Hx Influenza Vaccination/Date Given: Yes Hx Pneumococcal Vaccination/Date Given: Yes Immunizations Up to Date: Yes Travel Risk - International Travel Have you traveled outside of the country in past 3 weeks: No - Coronavirus Screening Are you exhibiting any of the following symptoms?: No Close contact with a COVID-19 positive Pt in past 14-21 Days: No - Vaccine Status Have you recieved a Covid-19 vaccination: Yes It [employer]: [employer] - Vaccination Dates Date of 2cond Vaccination (if applicable): . - Review of Systems Constitutional: No Symptoms, No Fever, No Chills Eyes: No Symptoms Ears, Nose, & Throat: No Symptoms Respiratory: No Symptoms, No Cough, No Dyspnea Cardiac: No Symptoms, No Chest Pain, No Edema, No Syncope Abdominal/Gastrointestinal: No Symptoms, No Abdominal Pain, No Nausea, No Vomiting, No Diarrhea Genitourinary Symptoms: No Symptoms, No Dysuria Musculoskeletal: No Symptoms, No Back Pain, No Neck Pain Skin: No Symptoms, No Rash Neurological: No Symptoms, No Dizziness, No Focal Weakness, No Sensory Changes Psychological: No Symptoms Endocrine: No Symptoms Hematologic/Lymphatic: No Symptoms Immunological/Allergic: No Symptoms All Other Systems: Reviewed and Negative - Past Medical History Pertinent Past Medical History: Yes Neurological History: No Pertinent History ENT History: No Pertinent History Cardiac History: Arrhythmia, Coronary Artery Disease, Deep Vein Thrombosis, Hypertension Respiratory History: CHF, Lung Cancer, Sleep Apnea Endocrine Medical History: Diabetes Type II, Hypothyroidism Musculoskeletal History: No Pertinent History GI Medical History: Gallbladder Disease, Hernia, Polyps, Ulcer History: Kidney Cancer Psycho-Social History: Depression Male Reproductive Disorders: No Pertinent History Other Medical History: anemia, afib, chemotherapy - Past Surgical History Past Surgical History: Yes Neuro Surgical History: No Pertinent History Cardiac: Cardiac Catheterization, Cardiac Stent, Pacemaker Respiratory: No Pertinent History Gastrointestinal: Cholecystectomy, Hernia Repair Genitourinary: Kidney Surgery Musculoskeletal: Orthopedic Surgery Male Surgical History: No Pertinent History Other Surgical History: rotator cuff bilateral, right kidney removed 2016, 4x stents, biopsy on lung nodule, colonoscopy - Social History Smoking Status: Never smoker Exposure to second hand smoke: No Drug Use: none Patient Lives Alone: No - Nursing Vital Signs Nursing Vital Signs: Initial Vital Signs Temperature 97.9 F 04/24/22 05:35 Pulse Rate 60 04/24/22 05:35 Respiratory Rate 24 04/24/22 05:35 Blood Pressure 89/45 04/24/22 05:35 O2 Sat by Pulse Oximetry 95 04/24/22 05:35 Pain Scale Pain Intensity 4 - Physical Exam General Appearance: no apparent distress, alert Eye Exam: PERRL/EOMI, eyes nml inspection Ears, Nose, Throat Exam: normal ENT inspection, TMs normal, pharynx normal, moist mucous membranes Neck Exam: normal inspection, non-tender, supple, full range of motion Respiratory Exam: normal breath sounds, lungs clear, airway intact, No respiratory distress Cardiovascular Exam: regular rate/rhythm, normal heart sounds, normal peripheral pulses Gastrointestinal/Abdomen Exam: soft, normal bowel sounds, No tenderness, No mass Back Exam: normal inspection, normal range of motion, No CVA tenderness, No vertebral tenderness Extremity Exam: normal inspection, normal range of motion, pelvis stable, other (Chronic bilateral lower extremity swelling.) Neurologic Exam: alert, oriented x 3, cooperative, normal mood/affect, nml cere bellar function, nml station & gait, sensation nml, No motor deficits Skin Exam: normal color, warm, dry, No rash Lymphatic Exam: No adenopathy SpO2 Interpretation: normal SpO2: 95 O2 Delivery: Room Air - Course Nursing assessment & vital signs reviewed: Yes Ordered Tests: Active Orders 24 hr Category Date Time Status IV Insertion STAT Care 04/24/22 05:49 Active FOOT (MINIMUM 3 VIEWS) Stat Exams 04/24/22 05:45 Taken HIP UNI (2V) INCL PEL IF DONE Stat Exams 04/24/22 06:33 Taken CBC W DIFF Stat Lab 04/24/22 06:00 Completed CMP Stat Lab 04/24/22 06:00 Completed Lab/Rad Data: Laboratory Result Diagrams 04/24/22 06:00 04/24/22 06:00 Laboratory Results 04/24/22 04/24/22 Range/Units 06:00 06:00 WBC 4.4 (4.0-10.5) x10^3/uL RBC 3.31 L (4.1-5.6) x10^6/uL Hgb 9.9 L (12.5-18.0) g/dL Hct 29.9 L (42-50) % MCV 90.3 (78-100) fL MCH 29.9 (26-32) pg MCHC 33.1 (32-36) g/dL RDW 14.2 H (11.5-14.0) % Plt Count 113 L (150-450) x10^3/uL MPV 10.4 (7.5-11.0) fL Gran % 57.5 (36.0-66.0) % Immature Gran % (Auto) 0.5 H (0.00-0.4) % Nucleat RBC Rel Count 0.0 (0.00-0.1) % Eos # (Auto) 0.28 (0-0.5) x10^3/uL Immature Gran # (Auto) 0.02 (0.00-0.03) x10^3u/L Absolute Lymphs (auto) 0.88 L (1.0-4.6) x10^3/uL Absolute Monos (auto) 0.64 (0.0-1.3) x10^3/uL Absolute Nucleated RBC 0.00 (0.00-0.01) x10^3u/L Lymphocytes % 20.0 L (24.0-44.0) % Monocytes % 14.5 H (0.0-12.0) % Eosinophils % 6.4 H (0.00-5.0) % Basophils % 1.1 (0.0-0.4) % Absolute Granulocytes 2.53 (1.4-6.9) x10^3/uL Basophils # 0.05 (0-0.4) x10^3/uL Sodium 118 L* (137-145) mmol/L Potassium 4.1 (3.5-5.1) mmol/L Chloride 83 L (98-107) mmol/L Carbon Dioxide 26 (22-30) mmol/L Anion Gap 13.1 (5-15) MEQ/L BUN 18 (9-20) mg/dL Creatinine 2.17 H (0.66-1.25) mg/dL Estimated GFR 31.5 ML/MIN Glucose 133 H (74-106) mg/dL Calcium 8.6 (8.4-10.2) mg/dL Total Bilirubin 1.50 H (0.2-1.3) mg/dL AST 33 (17-59) U/L ALT 15 (0-50) U/L Alkaline Phosphatase 256 H (38-126) U/L Serum Total Protein 7.1 (6.3-8.2) g/dL Albumin 3.5 (3.5-5.0) g/dL - Progress Progress Note: Work-up pending. Patient Dors Dr. Schaeffer at approximately 7 AM 04/24/22 07:14 - Departure Clinical Impression: Fall Condition: Stable Critical Care Time: No Referrals: RIK RENE MD [Primary Care Provider] - Follow up/PCP as directed
[2022-04-24 06:12] LABS: Absolute Neutrophil Ct (ANC) 2.53 x10^3/uL (1.4-6.9); Basophil (Absolute #) 0.05 x10^3/uL (0-0.4); Eosinophil % 6.4 % (0.00-5.0); Eosinophil (Absolute #) 0.28 x10^3/uL (0-0.5); Hematocrit 29.9 % (42-50); Hemoglobin 9.9 g/dL (12.5-18.0); Lymphocyte (Absolute #) 0.88 x10^3/uL (1.0-4.6); Mean Cell Volume 90.3 fL (78-100); Mean Corpuscular Hemoglobin 29.9 pg (26-32); Mean Corpuscular Hgb Concent. 33.1 g/dL (32-36); Mean Platelet Volume 10.4 fL (7.5-11.0); Monocyte (Absolute #) 0.64 x10^3/uL (0.0-1.3); Monocytes % 14.5 % (0.0-12.0); Neutrophil % 57.5 % (36.0-66.0); Platelet Count 113 x10^3/uL (150-450); Red Blood Count 3.31 x10^6/uL (4.1-5.6); Red Cell Distribution Width 14.2 % (11.5-14.0); White Blood Count 4.4 x10^3/uL (4.0-10.5)
[2022-04-24 06:24] LABS: ALBUMIN 3.5 g/dL (3.5-5.0); ANION GAP 13.1 MEQ/L (5-15); BILIRUBIN,TOTAL 1.5 mg/dL (0.2-1.3); Calcium 8.6 mg/dL (8.4-10.2); Creatinine 1 2.17 mg/dL (0.66-1.25); EST GLOMERULAR FILTRATION RATE 31.5 ML/MIN; Potassium 4.1 mmol/L (3.5-5.1); Total Protein 7.1 g/dL (6.3-8.2)
[2022-04-24] MEDS ORDERED: Zofran 4 MG/2 ML VIAL IV ONE (07:41)
[2022-04-24] MEDS ORDERED: Zofran 4 MG/2 ML VIAL ONE (07:43)
[2022-04-24] MEDS ORDERED: MORPHINE SULFATE 4 MG INJ ONE ×2 (07:43→07:54)
[2022-04-24] MEDS: MORPHINE SULFATE 4 MG INJ IV ONE ×2 (07:46→07:53)
[2022-04-24] MEDS ORDERED: Sodium Chloride 0.9% 1000 ML 1,000 ML IV STA (07:56)
[2022-04-24] MEDS ORDERED: Sodium Chloride 0.9% 1000 ML 1,000 ML ONE (07:56)
[2022-04-24] MEDS ORDERED: MORPHINE SULFATE 2 MG INJ IV ONE (08:00)
--- NOTE | 2022-04-24 09:07 | XRAY ---
Indication: Pain following fall. Comparison: April 16, 2022 AP pelvis and 2 view left hip unchanged again demonstrating osteopenia, bilateral acetabular spurring, and heavy scattered vascular calcifications. No new/acute bony, articular, or soft tissue abnormalities.
--- NOTE | 2022-04-24 09:09 | XRAY ---
Indication: Pain following fall. Comparison: None 3 nonweightbearing views left foot demonstrates osteopenia, mild midfoot degenerative changes, spurring plantar calcaneus/base 5th metatarsal, and extensive scattered vascular calcifications. No other bony, articular, or soft tissue abnormalities.
[2022-04-24 09:15] LABS: POTASSIUM, URINE RANDOM 31.8 mmol/L
[2022-04-24 09:17] LABS: Appearance SLIGHTLY CLOUDY (CLEAR); Bilirubin NEGATIVE (NEGATIVE); Dipstick done @ ? MAIN LAB; Glucose NEGATIVE (NEGATIVE); Ketones NEGATIVE (NEGATIVE); Nitrite NEGATIVE (NEGATIVE); Ph 5.5 (5-6); Protein,Urine Dip TRACE (Negative); RBC NEGATIVE Ery/ul (0-5); Specific Gravity 1.025 (1.005-1.025); Urobilinogen 0.2 mg/dL (0-1)
[2022-04-24 09:26] LABS: INFLUENZA A NEGATIVE (NEGATIVE); INFLUENZA B NEGATIVE (NEGATIVE); RESPIRATORY SYNCTIAL VIRUS NEGATIVE (Negative); SARS-CoV-2 Xpert Express NEGATIVE (NEGATIVE)
[2022-04-24 09:28] LABS: Bacteria FEW /HPF (NEGATIVE); Epithelial Cells FEW /HPF (FEW); Mucus SLIGHT /HPF (NEGATIVE); WBC 51-100 /HPF (0-5)
[2022-04-24 09:29] LABS: Urine Cultured Indicated? YES
[2022-04-24] MEDS ORDERED: Levofloxacin 500MG/100ML D5W 500 MG/100 ML BAG IV STA (09:32)
[2022-04-24] MEDS ORDERED: Levofloxacin 500MG/100ML D5W 500 MG/100 ML BAG IV ONE (09:48)
[2022-04-24] MEDS ORDERED: TYLENOL 325 MG PO PRN (11:49)
[2022-04-24] MEDS ORDERED: HUMULIN R SQ PRN (11:49)
[2022-04-24] MEDS: Sodium Chloride 0.9% 1000 ML 1,000 ML IV SCH (13:04)
[2022-04-24 14:15] LABS: Hematocrit 28.2 % (42-50); Hemoglobin 9.5 g/dL (12.5-18.0); Mean Cell Volume 90.1 fL (78-100); Mean Corpuscular Hemoglobin 30.4 pg (26-32); Mean Corpuscular Hgb Concent. 33.7 g/dL (32-36); Mean Platelet Volume 10.1 fL (7.5-11.0); Platelet Count 107 x10^3/uL (150-450); Red Blood Count 3.13 x10^6/uL (4.1-5.6); Red Cell Distribution Width 14.2 % (11.5-14.0)
[2022-04-24 14:41] LABS: ANION GAP 13.7 MEQ/L (5-15); Calcium 8.2 mg/dL (8.4-10.2); Creatinine 1 2.08 mg/dL (0.66-1.25); EST GLOMERULAR FILTRATION RATE 33.1 ML/MIN; PREALBUMIN 6.69 mg/dL (17.6-36.0)
[2022-04-24] MEDS: MORPHINE SULFATE 2 MG INJ IV PRN ×2 (15:19→21:32)
[2022-04-24] MEDS ORDERED: Nitrostat 0.4 MG Tablet SL PRN (15:30)
[2022-04-24] MEDS ORDERED: NON-FORMULARY ITEM (Insulin Lispro 1 UNIT Ml) SQ SCH (16:30)
[2022-04-24] MEDS: ZOCOR 20MG PO SCH (16:38)
[2022-04-24] MEDS: Protonix 40MG Tablet PO SCH (16:39)
[2022-04-24] MEDS: PLAVIX Tablet PO SCH ×2 (16:39→16:44)
[2022-04-24] MEDS: SYNTHROID 25 MCG PO SCH (16:39)
[2022-04-24] MEDS: Januvia 50 MG PO SCH (16:42)
[2022-04-24] MEDS: Lasix 40 MG PO SCH (16:44)
[2022-04-24] MEDS: NITRO-DUR 0.2 MG/HR TOP SCH (16:46)
[2022-04-24] MEDS: NORCO 7.5/325 MG TAB PO PRN ×2 (16:50→21:31)
[2022-04-24] MEDS: HUMALOG SQ SCH (18:35)
[2022-04-24] MEDS: ELIQUIS 2.5 MG TABLET PO SCH (21:23)
[2022-04-24] MEDS: Flomax 0.4 MG PO SCH (21:23)
[2022-04-24] MEDS: Lantus Insulin SQ SCH (21:38)
[2022-04-24] MEDS ORDERED: NON-FORMULARY ITEM (Apixaban*** [Eliquis 5 Mg Tablet***] 5 MG Tablet) PO SCH (22:00)
[2022-04-25] MEDS: Sodium Chloride 0.9% 1000 ML 1,000 ML IV SCH (00:23)
[2022-04-25] MEDS: NORCO 7.5/325 MG TAB PO PRN (03:35)
[2022-04-25 06:06] LABS: Basophil (Absolute #) 0.05 x10^3/uL (0-0.4); Eosinophil % 7.2 % (0.00-5.0); Eosinophil (Absolute #) 0.32 x10^3/uL (0-0.5); Hematocrit 28.5 % (42-50); Hemoglobin 9.4 g/dL (12.5-18.0); Lymphocyte (Absolute #) 0.81 x10^3/uL (1.0-4.6); Lymphocytes % 18.2 % (24.0-44.0); Mean Cell Volume 90.5 fL (78-100); Mean Corpuscular Hemoglobin 29.8 pg (26-32); Mean Platelet Volume 10.9 fL (7.5-11.0); Monocyte (Absolute #) 0.65 x10^3/uL (0.0-1.3); Monocytes % 14.6 % (0.0-12.0); Neutrophil % 58.7 % (36.0-66.0); Platelet Count 105 x10^3/uL (150-450); Red Blood Count 3.15 x10^6/uL (4.1-5.6); Red Cell Distribution Width 14.6 % (11.5-14.0); White Blood Count 4.4 x10^3/uL (4.0-10.5)
[2022-04-25 06:26] LABS: ALBUMIN 3.4 g/dL (3.5-5.0); ANION GAP 12.4 MEQ/L (5-15); BILIRUBIN,TOTAL 1.6 mg/dL (0.2-1.3); Creatinine 1 2.22 mg/dL (0.66-1.25); EST GLOMERULAR FILTRATION RATE 30.7 ML/MIN; Potassium 4.3 mmol/L (3.5-5.1); Total Protein 6.7 g/dL (6.3-8.2)
[2022-04-25 07:48] LABS: Slide Review 1 YES
[2022-04-25] MEDS: HUMALOG SQ SCH ×3 (08:59→17:19)
[2022-04-25] MEDS ORDERED: NON-FORMULARY ITEM (Omeprazole 20 Mg [Prilosec 20 Mg] 20 MG Capsule.Dr) PO SCH (10:00)
[2022-04-25] MEDS ORDERED: NON-FORMULARY ITEM (Atorvastatin Calcium 20 MG Tab) PO SCH (10:00)
[2022-04-25] MEDS ORDERED: NON-FORMULARY ITEM (Alogliptin Benzoate [Alogliptin] 12.5 MG Tablet) PO SCH (10:00)
[2022-04-25] MEDS ORDERED: Levaquin 250MG/50ML D5W 250 MG/50 ML BAG IV SCH (10:00)
[2022-04-25] MEDS: Lasix 40 MG PO SCH (10:27)
[2022-04-25] MEDS: NITRO-DUR 0.2 MG/HR TOP SCH (10:27)
[2022-04-25] MEDS: PLAVIX Tablet PO SCH (10:28)
[2022-04-25] MEDS: ELIQUIS 2.5 MG TABLET PO SCH ×2 (10:28→22:13)
[2022-04-25] MEDS: Januvia 50 MG PO SCH (10:28)
[2022-04-25] MEDS: ZOCOR 20MG PO SCH (10:28)
[2022-04-25] MEDS: SYNTHROID 25 MCG PO SCH (10:28)
[2022-04-25] MEDS: Protonix 40MG Tablet PO SCH (10:43)
[2022-04-25] MEDS ORDERED: MORPHINE SULFATE 4 MG INJ IV PRN (10:44)
[2022-04-25] MEDS ORDERED: HYDROCODONE-ACETAMIN 10-325 MG PO PRN (10:45)
[2022-04-25] MEDS ORDERED: PHARMACY DOSING REQUIRED: VANCOMYCIN IV STA (13:41)
[2022-04-25] MEDS ORDERED: VANCOMYCIN 1.25 GM/250 ML BAG 1.25 GM/250 ML PIGGYBACK IV SCH (14:00)
[2022-04-25] MEDS ORDERED: Duragesic 25MCG Patch TD SCH (14:00)
[2022-04-25] MEDS ORDERED: PHARMACY DOSING REQUEST MC ONE (14:07)
[2022-04-25] MEDS: MORPHINE SULFATE 4 MG INJ IV PRN ×2 (14:35→19:49)
--- NOTE | 2022-04-25 14:37 | XRAY ---
Indication: Elevated blood pressure. Comparison: September 02, 2020 Portable chest again demonstrates cardiomegaly with new central vascular congestion, pulmonary edema, and small right effusion concerning for cardiac decompensation/CHF. Superimposed pneumonia not completely excluded. Again chronic findings including mediastinal/hilar calcified nodes, left pacemaker, osteopenia, and bony degenerative changes.
[2022-04-25] MEDS ORDERED: FLUID RESTRICTION MISC MC SCH (15:15)
[2022-04-25] MEDS ORDERED: Lasix 40 MG/4 ML IV SCH (16:00)
[2022-04-25] MEDS ORDERED: AlbuRx 25% 50ML VIAL*** 100 ML IV SCH (16:00)
[2022-04-25] MEDS: Zofran 4 MG/2 ML VIAL IV PRN ×2 (17:32→22:23)
[2022-04-25] MEDS: PROAMATINE PO SCH (17:33)
[2022-04-25] MEDS: URE-NA PO SCH ×2 (17:37→22:13)
[2022-04-25] MEDS: Merrem 1 GM in Sodium Chloride 100ML MINI-BAG PLUS 100 ML IV SCH (19:28)
[2022-04-25] MEDS: Lantus Insulin SQ SCH (22:00)
[2022-04-25] MEDS: Flomax 0.4 MG PO SCH (22:12)
[2022-04-26] MEDS: Sodium Chloride 0.9% 1000 ML 1,000 ML IV SCH (02:38)
[2022-04-26] MEDS: MORPHINE SULFATE 4 MG INJ IV PRN ×2 (02:39→05:40)
[2022-04-26] MEDS: Zofran 4 MG/2 ML VIAL IV PRN (05:39)
[2022-04-26 05:41] LABS: Absolute Neutrophil Ct (ANC) 3.05 x10^3/uL (1.4-6.9); Basophil (Absolute #) 0.05 x10^3/uL (0-0.4); Eosinophil % 6.4 % (0.00-5.0); Eosinophil (Absolute #) 0.32 x10^3/uL (0-0.5); Hematocrit 27.8 % (42-50); Hemoglobin 9.1 g/dL (12.5-18.0); Lymphocyte (Absolute #) 0.83 x10^3/uL (1.0-4.6); Lymphocytes % 16.7 % (24.0-44.0); Mean Cell Volume 89.7 fL (78-100); Mean Corpuscular Hemoglobin 29.4 pg (26-32); Mean Corpuscular Hgb Concent. 32.7 g/dL (32-36); Mean Platelet Volume 10.4 fL (7.5-11.0); Monocyte (Absolute #) 0.71 x10^3/uL (0.0-1.3); Monocytes % 14.3 % (0.0-12.0); Neutrophil % 61.2 % (36.0-66.0); Platelet Count 94 x10^3/uL (150-450); Red Cell Distribution Width 14.1 % (11.5-14.0)
[2022-04-26] MEDS: Merrem 1 GM in Sodium Chloride 100ML MINI-BAG PLUS 100 ML IV SCH (05:41)
[2022-04-26 05:52] LABS: ALBUMIN 3.5 g/dL (3.5-5.0); Calcium 8.1 mg/dL (8.4-10.2); Creatinine 1 2.85 mg/dL (0.66-1.25); Potassium 4.2 mmol/L (3.5-5.1); Total Protein 6.8 g/dL (6.3-8.2)
[2022-04-26 06:55] LABS: Slide Review 1 YES
--- NOTE | 2022-04-26 08:09 | CONS ---
CONSULT DATE: 04/25/2022 REASON FOR CONSULT: Evaluation of renal dysfunction and electrolyte imbalance/hyponatremia. 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 The patient was admitted because he was very weak. He has history of lung cancer and undergoing chemotherapy. He was also noted to have 4+ edema. His admission sodium was 118 and it was 123 mEq/liter today. Creatinine was at baseline. He states that he is voiding okay. He is being treated for cellulitis. Renal consultation for above mentioned problems. The patient did not have any nausea, vomiting or diarrhea. REVIEW OF SYSTEMS: He is undergoing chemotherapy for kidney and lung cancer. He has chronic kidney disease stage 4. No nausea, vomiting or diarrhea. No nonsteroidals. He was seen in the office in February and at that time metolazone was discontinued. He was on Lasix 40 b.i.d. He states that he was taking the same. He has dyspnea on exertion. No chest pain. No abdominal pain. No hematuria. His states that he was taking a low osmolar diet, was taking Ensure, trying to adhere to 1500 cc fluid restriction. No fall trauma. No focal weaknesses. No seizures. All systems were attempted to be reviewed pertinent mentioned here and in history of present illness and the rest were negative. PAST MEDICAL HISTORY: Cardiac arrhythmia. Coronary artery disease. Deep vein thrombosis. Hypertension. Congestive heart failure. Lung cancer. Sleep apnea. Chronic kidney disease stage 3B/4. Diabetes mellitus type II. Hypothyroidism. Obesity. PAST SURGICAL HISTORY: Cardiac stent and pacemaker implantation. Cholecystectomy. Cardiac catheterization. Renal surgery. Orthopedic surgery. MEDICATIONS: Home medications were noted. The patient was on Nitro, omeprazole, tramadol, insulin, vitamin D, Lasix 40 b.i.d., tamsulosin. Metolazone had been stopped last admission. ALLERGIES: XARELTO. PENICILLIN. PRADAXA. SULFA. SIMVASTATIN. SOCIAL HISTORY: Nonsmoker, nonalcoholic. FAMILY HISTORY: No history of renal problems in the family. PHYSICAL EXAMINATION: Vital signs were reviewed. Borderline hypotensive, afebrile. HEENT: Normocephalic, atraumatic, pale conjunctivae, nonicteric sclera. NECK: Supple. No JVD. CHEST: Decreased basilar breath sounds. CVS: S1, S2 normal. ABDOMEN: Soft, nontender. No organomegaly. EXTREMITIES: 2 to 3+ edema bilaterally. Redness over the chin noted. SKIN: No diffuse rash seen. NEUROLOGIC: Alert, awake, oriented x3, weak, lethargic. LAB DATA AND TESTS: Labs were reviewed. Pertinent labs sodium level 123, hemoglobin 9.4, white count was 4.4. Albumin was 3.4. Hemoglobin A1C was 7. Potassium level was 4.3. ASSESSMENT: 1) Fluid overload/congestive heart failure decompensation/excess total body water. The patient had been relatively noncompliant over the years as per his fluid restrictions are concerned. We will change Lasix to 40 mg IV b.i.d., start him on 1500 cc fluid restriction. 2) Hyponatremia, appears to be hypervolemic. Underlying (SIADH) syndrome of inappropriate antidiuretic hormone secretion because of lung cancer cannot be completely ruled out. Check urine sodium and osmolality, will give a dose of Samsca. Sodium levels are improving appropriately over duration was 118 yesterday and 123 today. 3) Chronic kidney disease Stage 3B. Creatinine at baseline. Estimated GFR maybe misinterpretation, actual GFR maybe lower. Nevertheless, he is nonoliguric, near baseline creatinine. No need for renal replacement therapy. 4) Cellulitis. Continue present antibiotics which were reviewed. I would suggest vancomycin dosing as per levels. 5) Hypotension. Start Midodrine, give a dose of albumin. I will follow up closely.
[2022-04-26] MEDS ORDERED: MORPHINE SULFATE 2 MG INJ IV PRN (09:06)
[2022-04-26] MEDS: HUMALOG SQ SCH ×2 (09:07→11:32)
[2022-04-26] MEDS: PROAMATINE PO SCH ×2 (09:08→12:07)
[2022-04-26] MEDS: PLAVIX Tablet PO SCH (09:09)
[2022-04-26] MEDS: ELIQUIS 2.5 MG TABLET PO SCH (09:09)
[2022-04-26] MEDS: Januvia 50 MG PO SCH (09:09)
[2022-04-26] MEDS: SYNTHROID 25 MCG PO SCH (09:09)
[2022-04-26] MEDS: Protonix 40MG Tablet PO SCH (09:09)
[2022-04-26] MEDS: ZOCOR 20MG PO SCH (09:10)
[2022-04-26] MEDS: URE-NA PO SCH (09:10)
[2022-04-26] MEDS: NITRO-DUR 0.2 MG/HR TOP SCH (09:26)
[2022-04-26 11:38] VITALS: BP 107/52; PULSE 69; O2SAT 92
[2022-04-26] MEDS ORDERED: VANCOMYCIN 1 GRAM/200 ML BAG 1 GM/200 ML PIGGYBACK IV SCH (14:00)
[2022-04-26] MEDS ORDERED: MERREM 500 MG in Sodium Chloride 100ML MINI-BAG PLUS 100 ML IV SCH (18:00)
[2022-04-27] MEDS ORDERED: TROUGH DRUG LEVELS IJ ONE (13:30)
[2022-04-29] MEDS ORDERED: VITAMIN D2 PO SCH (10:00)
== END 2022-04-26 13:39 | disposition home or self-care (01) | DRG 603 ==
LOC: ED 05:27 → MED SURG 11:24 → OBSVTOIN 04-25 13:29
PROVIDERS: ADMIT Family Medicine; ATTEND Family Medicine
DX: L03.116 Cellulitis of left lower limb (principal); E87.1 Hypo-osmolality and hyponatremia; I13.0 Hypertensive heart and chronic kidney disease with heart failure and stage 1 through stage 4 chronic kidney disease, or unspecified chronic kidney disease; C34.90 Malignant neoplasm of unspecified part of unspecified bronchus or lung; C64.9 Malignant neoplasm of unspecified kidney, except renal pelvis; N39.0 Urinary tract infection, site not specified; L03.115 Cellulitis of right lower limb; E11.22 Type 2 diabetes mellitus with diabetic chronic kidney disease; N18.32 Chronic kidney disease, stage 3b; I50.9 Heart failure, unspecified; I95.9 Hypotension, unspecified; W18.30XA Fall on same level, unspecified, initial encounter; D64.9 Anemia, unspecified; Z20.828 Contact with and (suspected) exposure to other viral communicable diseases; Z79.899 Other long term (current) drug therapy
CPT/HCPCS: 0241U; 36000; 36415; 71045; 73502; 73630; 80048; 80053; 81015; 82947; 83036; 83880; 83935; 84133; 84134; 84300; 85025; 85027; 87077; 87086; 87186; 96360; 96365; 96374; 96375; 99285; G0378; J1940; J1956; J2270; J2405; P9047; A9270-GY; J3370